=== PATIENT | male | born 1970 | race Caucasian/White ===

== ENCOUNTER 2017-03-05 15:19 | Observation (INO) | payer MEDICARE, OTHER, MEDICAID ==
[2017-03-05] MEDS ORDERED: Acetaminophen/HYDROcodone 325-5 MG Tab PO ONE (15:38)
--- NOTE | 2017-03-05 15:44 | EDM.PDOC ---
ED HPI GENERAL MEDICAL PROBLEM - General Chief Complaint: Lower Extremity Injury/Pain Stated Complaint: LEFT FOOT Time Seen by Provider: 03/05/17 15:25 Source of Information: Reports: Family, Old Records, RN History Limitations: Reports: Other (Down's syndrome) - History of Present Illness INITIAL COMMENTS - FREE TEXT/NARRATIVE: 46 yo male with Down's who is mostly non-verbal may have injured himself jumping down from their pickup/SUV this past weekend. Initiallly he did OK after that, but later wouldn't bear wgt. Now has a little swelling and increased warmth of the L ankle. Parents who care for him gave acetaminophen 500 mg without relief. Has not been to the clinic for this. Has a pHx of falls. Does have a remote hx of gout and his allopurinol was discontinued some time ago. Onset Date: 03/03/17 Duration: Day(s):, Getting Worse Location: Reports: Upper Extremity, Left Severity: Moderate Improves with: Reports: Rest Worsens with: Reports: Movement Context: Reports: Other (Landed wrong coming out of a higher vehicle) Associated Symptoms: Reports: No Other Symptoms Treatments BUCKLE SORTER: Reports: Acetaminophen Left Ankle Pain Score (Numeric/FACES): 4 - Related Data Allergies Allergy/AdvReac Type Severity Reaction Status Date / Time seasonal Allergy Cough Uncoded 03/05/17 15:50 Home Meds: Home Meds Omeprazole Magnesium [Prilosec Otc] 20 mg PO DAILY 02/03/17 [History] Past Medical History HEENT History: Reports: Allergic Rhinitis, Other (See Below) Other HEENT History: seasonal allergies. Cardiovascular History: Reports: Heart Murmur Respiratory History: Reports: None Gastrointestinal History: Reports: Gastritis, GERD Other Gastrointestinal History: GOUT Genitourinary History: Reports: None Musculoskeletal History: Reports: Gout Other Musculoskeletal History: PLANTAR FASCIAL FIBROMATOSIS Neurological History: Reports: Other (See Below) Other Neuro History: DOWN SYNDROME, ADULT FAILURE TO THRIVE SYNDROME, ACUTE ENCEPHALOPATHY Psychiatric History: Reports: Anxiety Other Psychiatric History: DOWN SYNDROME Endocrine/Metabolic History: Reports: Obesity/BMI 30+ Hematologic History: Reports: None Immunologic History: Reports: None Oncologic (Cancer) History: Reports: None Dermatologic History: Reports: Eczema, Other (See Below) Other Dermatologic History: CONTACT DERMATITIS - Past Surgical History Head Surgeries/Procedures: Reports: None Cardiovascular Surgical History: Reports: Other (See Below) Other Cardiovascular Surgeries/Procedures: VSD REPAIR 1973 Respiratory Surgical History: Reports: None GI Surgical History: Reports: Appendectomy Male Surgical History: Reports: None Endocrine Surgical History: Reports: None Musculoskeletal Surgical History: Reports: None Social & Family History - Family History Family Medical History: Noncontributory - Tobacco Use Smoking Status *Q: Never Smoker Second Hand Smoke Exposure: No - Caffeine Use Caffeine Use: Reports: None - Recreational Drug Use Recreational Drug Use: No Review of Systems - Review of Systems Review Of Systems: See Below Constitutional: Reports: No Symptoms Musculoskeletal: Reports: Joint Pain (L ankle), Joint Swelling (L ankle) Skin: Reports: Other (L ankle is warmer than usual) Neurological: Reports: No Symptoms ED EXAM, GENERAL - Physical Exam Exam: See Below Exam Limited By: No Limitations General Appearance: Alert, WD/WN, No Apparent Distress, Obese Eye Exam: Bilateral Eye: Normal Inspection Ears: Normal External Exam, Normal Canal, Hearing Grossly Normal Ear Exam: Bilateral Ear: Auricle Normal, Canal Normal Nose: Normal Inspection, Normal Mucosa, No Blood Throat/Mouth: Normal Inspection, Normal Lips, No Airway Compromise Head: Atraumatic, Normocephalic Neck: Normal Inspection Respiratory/Chest: No Respiratory Distress, Lungs Clear, Normal Breath Sounds, No Accessory Muscle Use Cardiovascular: Regular Rate, Rhythm Extremities: Limited Range of Motion (L ankle with increased warmth and some local swelling. ) Neurological: Alert, No Motor/Sensory Deficits Psychiatric: Normal Affect, Normal Mood Skin Exam: Warm, Dry, Intact, Normal Color, No Rash, Increased Warmth (L ankle) Lymphatic: No Adenopathy Course - Vital Signs Text/Narrative:: Ankle synovial fluid sent for crystal analysis. Last Recorded V/S: Last Vital Signs Temp 36.4 C 03/05/17 15:51 Pulse 67 03/05/17 15:51 Resp 14 03/05/17 15:51 BP 102/58 L 03/05/17 15:51 Pulse Ox 100 03/05/17 15:51 - Orders/Labs/Meds Orders: Active Orders 24 hr Category Date Time Status Ankle Min 3V Lt [CR] Stat Exams 03/05/17 15:38 Ordered CRYSTALS,FLUID [REF] Stat Lab 03/05/17 16:41 Ordered UA W/MICROSCOPIC [URIN] Stat Lab 03/05/17 16:27 Uncollected Labs: Laboratory Tests 03/05/17 03/05/17 03/05/17 Range/Units 16:10 16:10 16:10 WBC 10.4 (4.5-12.0) X10-3/uL RBC 5.59 (4.30-5.75) x10(6)uL Hgb 16.8 H (11.5-15.5) g/dL Hct 50.0 (30.0-51.3) % MCV 89.4 (80-96) fL MCH 30.0 (27.7-33.6) pg MCHC 33.5 (32.2-35.4) g/dL RDW 13.3 (11.5-15.5) % Plt Count 311 (125-369) X10(3)uL Sodium 139 (135-145) mmol/L Potassium 4.1 (3.5-5.3) mmol/L Chloride 101 (100-110) mmol/L Carbon Dioxide 30 H (23-29) mmol/L BUN 14 (5-20) mg/dL Creatinine 1.1 (0.6-1.3) mg/dL Est Cr Clr Drug Dosing 64.80 mL/min Estimated GFR (MDRD) > 60 (>60) BUN/Creatinine Ratio 12.7 (9-20) Glucose 104 (80-116) mg/dL Uric Acid 6.1 (3.0-7.0) mg/dL Calcium 8.7 (8.6-10.2) mg/dL C-Reactive Protein 2.7 H* (0.0-1.0) mg/dL Meds: Medications Discontinued Medications Generic Name Dose Route Start Last Admin Trade Name Freq PRN Reason Stop Dose Admin Hydrocodone Bitart/Acetaminophen 1 tab 03/05/17 15:38 03/05/17 15:48 [place] 325-5 Mg PO 03/05/17 15:39 1 tab ONETIME ONE Administration Ketorolac Tromethamine 30 mg 03/05/17 16:01 03/05/17 16:12 Toradol IM 03/05/17 16:02 30 mg ONETIME ONE Administration - Radiology Interpretation Free Text/Narrative:: No fx of ankle noted on X-ray Departure - Departure Time of Disposition: 17:20 Disposition: Refer to Observation Condition: Fair Clinical Impression: Down's syndrome Ankle pain, left Qualifiers: Chronicity: acute Qualified Code(s): M25.572 - Pain in left ankle and joints of left foot - Discharge Information Referrals: Courtney Camacho NP [Primary Care Provider] - Forms: ED Department Discharge - My Orders Last 24 Hours: My Active Orders 03/05/17 15:38 Ankle Min 3V Lt [CR] Stat 03/05/17 16:27 UA W/MICROSCOPIC [URIN] Stat 03/05/17 16:41 CRYSTALS,FLUID [REF] Stat - Assessment/Plan Last 24 Hours: My Active Orders 03/05/17 15:38 Ankle Min 3V Lt [CR] Stat 03/05/17 16:27 UA W/MICROSCOPIC [URIN] Stat 03/05/17 16:41 CRYSTALS,FLUID [REF] Stat
[2017-03-05] MEDS ORDERED: Ketorolac 30 MG/ML SDV IM ONE (16:01)
[2017-03-05] MEDS ORDERED: Ketorolac 30 MG/ML SDV IVPUSH PRN (17:15)
[2017-03-05] MEDS ORDERED: Acetaminophen/HYDROcodone 325-5 MG Tab PO PRN (17:15)
[2017-03-05] MEDS ORDERED: Polyethylene Glycol 3350 Powder 17 GM Packet PO PRN (17:15)
[2017-03-05] MEDS ORDERED: Sodium Chloride 0.9% 10 ML Syringe FLUSH PRN (17:15)
[2017-03-06] MEDS ORDERED: Ketorolac 15 MG/ML SDV IVPUSH PRN (07:17)
--- NOTE | 2017-03-06 08:47 | CR ---
INDICATION: Ankle pain. Fell one month ago. LEFT ANKLE: Three views of the left ankle revealed the ankle mortise to appear intact without a definite fracture, dislocation, or other significant appearing bone or joint abnormality. If soft tissue abnormality is suspected clinically, MRI may be helpful for further evaluation. MTDD
[2017-03-06] MEDS ORDERED: Non-Formulary Medication 1 Each (Omeprazole Magnesium [Prilosec Otc] 20 MG) PO SCH (09:00)
--- NOTE | 2017-03-06 09:22 | PCM.HP ---
H&P History of Present Illness - General Date of Service: 03/06/17 Admit Problem/Dx: Admission Diagnosis/Problem Admission Diagnosis/Problem Ankle pain Source of Information: Family, Old Records, RN History Limitations: Reports: Other (Developemental delay) - History of Present Illness Initial Comments - Free Text/Narative: 46-year-old male admitted last night because of inability to ambulate. He has Down syndrome and lives with parents, and family, and has had frequent falls recently. Last week he jumped and landed on the left ankle. He presents to the ER with swelling and pain inability to ambulate. He has also history of gout. This morning he complains of no pain and has been able to ambulate some. Left Ankle Pain Score (Numeric/FACES): 4 - Related Data Allergies/Adverse Reactions: Allergies Allergy/AdvReac Type Severity Reaction Status Date / Time seasonal Allergy Cough Uncoded 03/05/17 15:50 Home Medications: Home Meds Omeprazole Magnesium [Prilosec Otc] 20 mg PO DAILY 02/03/17 [History] Past Medical History HEENT History: Reports: Allergic Rhinitis, Impaired Vision, Other (See Below) Other HEENT History: seasonal allergies. Cardiovascular History: Reports: Heart Murmur Respiratory History: Reports: None Gastrointestinal History: Reports: Gastritis, GERD Other Gastrointestinal History: GOUT Genitourinary History: Reports: Urinary Incontinence Musculoskeletal History: Reports: Gout Other Musculoskeletal History: PLANTAR FASCIAL FIBROMATOSIS Neurological History: Reports: Other (See Below) Other Neuro History: DOWN SYNDROME, ADULT FAILURE TO THRIVE SYNDROME, ACUTE ENCEPHALOPATHY. Parents state he has mental capacity of 2year/4month old child Psychiatric History: Reports: Anxiety Other Psychiatric History: DOWN SYNDROME Endocrine/Metabolic History: Reports: Obesity/BMI 30+ Hematologic History: Reports: None Immunologic History: Reports: None Oncologic (Cancer) History: Reports: None Dermatologic History: Reports: Eczema, Other (See Below) Other Dermatologic History: CONTACT DERMATITIS - Past Surgical History Cardiovascular Surgical History: Reports: Other (See Below) Other Cardiovascular Surgeries/Procedures: VSD REPAIR 1972 Respiratory Surgical History: Reports: None GI Surgical History: Reports: Appendectomy, Other (See Below) Other GI Surgeries/Procedures: gastroscopy 2015 Endocrine Surgical History: Reports: None Musculoskeletal Surgical History: Reports: None Social & Family History - Family History Family Medical History: Noncontributory - Tobacco Use Smoking Status *Q: Never Smoker Second Hand Smoke Exposure: No - Caffeine Use Caffeine Use: Reports: Soda - Recreational Drug Use Recreational Drug Use: No H&P Review of Systems - Review of Systems: Review Of Systems: ROS reveals no pertinent complaints other than HPI. Exam - Exam Exam: See Below - Vital Signs Vital Signs: Last Vital Signs Temp 97.4 F 03/06/17 05:20 Pulse 62 03/06/17 05:20 Resp 17 03/06/17 05:20 BP 118/72 03/06/17 01:25 Pulse Ox 98 03/06/17 05:20 Weight: 86.319 kg - Exam General: Alert, Oriented, 4 HEENT: PERRLA, Hearing Intact, Mucosa Moist & [place], Nares Patent, Normal Nasal Septum, Posterior Pharynx Clear, Conjunctiva Clear, EOMI, EACs Clear, TMs Clear Neck: Supple, Trachea Midline, 2 Lungs: Clear to Auscultation, Normal Respiratory Effort Cardiovascular: Regular Rate, Regular Rhythm GI/Abdominal Exam: Normal Bowel Sounds, Soft, Non-Tender, No Organomegaly, No Distention, No Abnormal Bruit, No Mass, Pelvis Stable (Male) Exam: No Hernia, Normal Inspection, Normal Prostate, Circumcised Rectal (Males) Exam: Deferred Back Exam: Normal Inspection, Full Range of Motion, NT Extremities: Joint Swelling (left ankle) Skin: Warm, Dry, Intact Neurological: Cranial Nerves Intact, Strength Equal Bilateral Neuro Extensive - Mental Status: No: Oriented x3 Neuro Extensive - Motor, Sensory, Reflexes: CN II-XII Intact, Normal Gait, Normal Reflexes Psychiatric: Alert, Other (cognitively impaired) - Patient Data Lab Results Last 24 hrs: Laboratory Results - last 24 hr 03/06/17 Range/Units 04:45 Urine Color Yellow (YELLOW) Urine Appearance Clear (CLEAR) Urine pH 5.0 (5.0-6.5) Ur Specific [place] 1.020 (1.010-1.025) Urine Protein Negative (NEGATIVE) mg/dL Urine Glucose (UA) Normal (NEGATIVE) mg/dL Urine Ketones Negative (NEGATIVE) mg/dL Urine Occult Blood Negative (NEGATIVE) Urine Nitrite Negative (NEGATIVE) Urine Bilirubin Negative (NEGATIVE) Urine Urobilinogen Normal (NEGATIVE) mg/dL Ur Leukocyte Esterase Negative (NEGATIVE) Urine RBC 0-5 (0) Urine WBC 0-5 (0) Ur Squamous Epith Cells Occasional (NS,R,O) Urine Bacteria Few H (NS) Result Diagrams: 03/05/17 16:10 03/05/17 16:10 *Q Meaningful Use (ADM) - VTE *Q VTE Criteria *Q: - Stroke *Q Stroke Criteria *Q: - AMI *Q AMI Criteria *Q: - Problem List (1) Ankle pain, left SNOMED Code(s): 107589007, 373739997 ICD Code: M25.572 - PAIN IN LEFT ANKLE AND JOINTS OF LEFT FOOT Status: Acute Current Visit: Yes Qualifiers: Chronicity: acute Qualified Code(s): M25.572 - Pain in left ankle and joints of left foot (2) Down's syndrome SNOMED Code(s): 28661373 ICD Code: Q90.9 - DOWN SYNDROME, UNSPECIFIED Status: Acute Current Visit : Yes (3) Fall (on) (from) other stairs and steps, initial encounter SNOMED Code(s): 640075510 ICD Code: W10.8XXA - FALL (ON) (FROM) OTHER STAIRS AND STEPS, INITIAL ENCOUNTER Status: Acute Current Visit: No (4) Gout SNOMED Code(s): 55489794 ICD Code: M10.9 - GOUT, UNSPECIFIED Status: Acute Current Visit: Yes Problem List Initiated/Reviewed/Updated: Yes Orders Last 24hrs: Active Orders 24 hr Category Date Time Status Patient Status [ADT] Routine ADT 03/05/17 17:14 Active Patient Status [ADT] Routine ADT 03/05/17 17:16 Active Height and Weight [RC] 06 Care 03/05/17 17:15 Active Intake and Output [RC] 06,14,22 Care 03/05/17 17:17 Active Oxygen Therapy [RC] PRN Care 03/05/17 17:14 Active Pulse Oximetry [RC] PRN Care 03/05/17 17:17 Active Vital Signs [RC] 04,08,12,16,20,00 Care 03/05/17 17:16 Active Consult to [place] Torch Operator [CONS] Routine Cons 03/05/17 17:15 Active Regular Diet [DIET] Diet 03/05/17 Dinner Ordered Acetaminophen/HYDROcodone [[place] 325-5 MG] Med 03/05/17 17:15 Active 1 tab PO Q4H PRN Ketorolac [Toradol] Med 03/06/17 07:17 Active 15 mg IVPUSH Q6H PRN Omeprazole Magnesium [Prilosec Otc] Med 03/06/17 09:00 Active 20 mg PO DAILY Polyethylene Glycol 3350 [MiraLAX] Med 03/05/17 17:15 Active 17 gm PO DAILY PRN Sodium Chloride 0.9% [Saline Flush] Med 03/05/17 17:15 Active 10 ml FLUSH ASDIRECTED PRN Antiembolic Hose [OM.PC] Per Unit Routine Oth 03/05/17 17:17 Ordered Saline Lock Insert [OM.PC] Routine Oth 03/05/17 17:15 Ordered Resuscitation Status Routine Resus Stat 03/05/17 17:14 Ordered Medication Orders Hydrocodone Bitart/Acetaminophen ([place] 325-5 Mg) 1 tab PO Q4H PRN PRN Reason: Pain (moderate 4-6) Last Admin: 03/06/17 05:24 Dose: 1 tab Ketorolac Tromethamine (Toradol) 15 mg IVPUSH Q6H PRN PRN Reason: Pain (moderate 4-6) Non-Formulary Medication (Omeprazole Magnesium [Prilosec Otc]) 20 mg PO DAILY THOR Polyethylene Glycol (Miralax) 17 gm PO DAILY PRN PRN Reason: Constipation Sodium Chloride (Saline Flush) 10 ml FLUSH ASDIRECTED PRN PRN Reason: Keep Vein Open Assessment/Plan Comment:: His uric acid is normal, but the ankle still slightly looks red and has mild effusion. However this morning is able to ambulate with assistance. I will discharge him home on home health, and NSAIDs for gout and ankle pain.
[2017-03-06 16:38] VITALS: BP 105/56
== END 2017-03-06 18:25 | disposition home health service (06) ==
LOC: FB.ED 15:19 → FB.MS 17:12
PROVIDERS: ADMIT Emergency Medicine; ATTEND Family Medicine
DX: M25.572 Pain in left ankle and joints of left foot (principal); Q90.9 Down syndrome, unspecified; M10.9 Gout, unspecified; K21.9 Gastro-esophageal reflux disease without esophagitis; F41.9 Anxiety disorder, unspecified; E66.9 Obesity, unspecified; Z68.30 Body mass index [BMI] 30.0-30.9, adult; J30.2 Other seasonal allergic rhinitis; W10.8XXA Fall (on) (from) other stairs and steps, initial encounter; Z90.49 Acquired absence of other specified parts of digestive tract; Z98.890 Other specified postprocedural states; Z79.899 Other long term (current) drug therapy
CPT/HCPCS: 36415; 73610; 80048; 81001; 84550; 85027; 85651; 86140; 89060; 96372; 99284; A9270; J1885; 99219; G0378

== ENCOUNTER 2017-12-15 20:28 | Inpatient (IN) | payer MEDICARE, OTHER, MEDICAID ==
[2017-12-15] MEDS ORDERED: Sodium Chloride 0.9% 1,000 ML IV ONE (20:29)
[2017-12-15] MEDS: Sodium Chloride 0.9% 10 ML Syringe FLUSH PRN (20:58)
[2017-12-15] MEDS: Sodium Chloride 0.9% 1,000 ML IV SCH (22:05)
--- NOTE | 2017-12-16 01:40 | ER ---
DATE SEEN: 12/15/2017 REASON FOR VISIT: Behavioral changes. HISTORY OF PRESENT ILLNESS: This is a 47-year-old male with Down syndrome and early dementia. The family brings him because they are unable to take care of him at home. He has had increased behavior issues, possible hallucinations, refusing food, and needing two people to move him. Over two years ago, he was diagnosed with early-onset dementia and his symptoms seemed to have worsened precipitously. This is despite trying Seroquel. REVIEW OF SYSTEMS: Denies any vomiting or constipation, nausea. No fever has been reported. PAST MEDICAL HISTORY: Down syndrome, gout, early dementia, GERD. ALLERGIES: No known medication allergies. PHYSICAL EXAMINATION: VITAL SIGNS: Blood pressure is normal, pulse is 98, and temperature is normal. ENT: Negative. CHEST: Clear. MENTAL STATUS: Cognitively impaired. NEUROLOGIC: No focal findings. IMPRESSION: 1. Early dementia. 2. Down syndrome. PLAN: The family would like to see him placed in a custodial facility and there has been a process in place, but they are currently unable to take care of him at elderly. As such, we will admit the patient as an inpatient. Consult Physical Therapy, web content & social media manager, and continue fluids and Seroquel and Aricept to control his behavior. /[id number] KANDI/IVY
[2017-12-16] MEDS: Sodium Chloride 0.9% 1,000 ML IV SCH (06:04)
[2017-12-16] MEDS: Sodium Chloride 0.9% 10 ML Syringe FLUSH PRN (12:30)
[2017-12-16] MEDS: Famotidine 20 MG Tab PO SCH (20:13)
[2017-12-16] MEDS: QUEtiapine 25 MG Tab PO SCH (20:13)
--- NOTE | 2017-12-17 06:49 | HP ---
ADMISSION DATE: 12/15/2017 REASON FOR ADMISSION: Diarrhea, progressive decline, care-related issues. Sebastien Elizalde is a 47-year-old single male from [place], [place], was seen at [facility], Dr. Velez on the evening of 12/15. There has been a progressive decline in ability to maintain independence with aging parents. Declining speech, behavioral issues, refusing foods, and increasingly in dependence requiring constant medical and physical supervision. There has been some concerns about dementia in spite of medical intervention. HOME MEDICATIONS: 1. Allopurinol 100 mg 1 daily, hyperuricemia. 2. Seroquel 25 mg 1 p.o. at bedtime, mood stabilizer. 3. Ranitidine 150 one p.o. b.i.d., gastritis. ALLERGIES: Seasonal only. No medication or drug allergies. PAST MEDICAL HISTORY: Significant for previous cardiac surgery. No other operative procedures, hospitalizations, unusual childhood diseases, major injuries, or fractures. SOCIAL HISTORY: Resides with his increasingly elderly parents. Nonsmoker. No alcohol consumption. No illicit drug use. REVIEW OF SYSTEMS: The patient is seen alone on the morning of 12/16/2017. Review of systems noted otherwise. PHYSICAL EXAMINATION: VITAL SIGNS: 37.3, 60, 127/66, 16 and 98. GENERAL: Young lad lying in bed. Opens his eyes, follows commands to some degree. HEENT: Funduscopic benign. Bright TMs. Clear nasal discharge. Mouth and oropharynx are clear. Fair dentition. Tongue midline. Difficult oral exam. NECK: Benign. Thyroid small. Short neck. No carotid bruits. CHEST: Clear in all lung abad. HEART: Soft murmur. Occasional ectopy. Sternotomy scar well healed. ABDOMEN: Benign. Moderately rotund. No palpable masses. GENITOURINARY: Atrophic testicles. Hernias absent. RECTAL: Declined. EXTREMITIES: Well perfused. SKIN: Without rash. LABORATORY STUDIES: White count 10,000, hemoglobin 16.5, electrolytes were satisfactory. Calcium 8.4, otherwise unremarkable. Radiographs not indicated. Conflictual living circumstances, increasing care issues, plans for [facility] care. IMPRESSION: Diarrhea, self-limiting. PLAN: IV fluids in place, cooperative care and well being, we will cap his IV, regular diet, intervention and care as appropriate. Pluck Separator involved. Home placement under consideration. /[id number] MARIEL/IVY
[2017-12-17] MEDS: Famotidine 20 MG Tab PO SCH ×2 (08:44→21:16)
[2017-12-17] MEDS: Allopurinol 100 MG Tab PO SCH (08:45)
--- NOTE | 2017-12-17 10:35 | PN ---
DATE SEEN: 12/17/2017 SUBJECTIVE: Sebastien Elizalde is a 47-year-old male, admitted for just decline in general health and well being. A few episodes of diarrhea in the interim. Noncommunicative for the most part. Living situation, declined health of the parents, physical and emotional demands, consideration for other placement opportunities to be pursued. No particular complaints on his behalf during his hospital stay. Laboratory studies from 12/15/2017 reviewed and appropriate. OBJECTIVE: VITAL SIGNS: 37.3, 72, 123/76, 20, and 95%. GENERAL: Noncommunicative, a bit cooperative. NECK: Benign. Thyroid small. CHEST: Clear in all lung abad. HEART: Regular rate. No murmur. ABDOMEN: Benign, soft, rotund. DIAGNOSES: 1. Diarrhea resolving. 2. Living situation, under stress. PLAN: Medications, care and treatment appropriate. We will discontinue IV fluids, intervention. Living situations to be pursued. /[id number] MARIEL/IVY
[2017-12-17] MEDS: QUEtiapine 25 MG Tab PO SCH (21:16)
[2017-12-18] MEDS: Famotidine 20 MG Tab PO SCH ×2 (08:11→20:12)
[2017-12-18] MEDS: Allopurinol 100 MG Tab PO SCH (08:11)
--- NOTE | 2017-12-18 12:16 | PN ---
DATE SEEN: 12/18/2017 SUBJECTIVE: Sebastien Elizalde is a 47-year-old, male, residing up at this time with his parents at [place] and seen today for review. He has declining health. Weakness, fatigability, inability to motor, and appears to be progressive dementia. MEDICATIONS: Medications reviewed and appropriate, none of consequence in terms of well-being. 1. Allopurinol. 2. Pepcid. 3. Seroquel. LABORATORY STUDIES: All have been complementary white count 10,000, hemoglobin 16.5, normal electrolytes, though GFR greater than 60. OBJECTIVE: GENERAL: Awake. Speech was non-intelligible. NECK: Benign. Thyroid small. CHEST: Clear in all lung abad. HEART: Regular rate. No murmur. ABDOMEN: Benign. NEURO: Progressive intellectual and physical decline. PLAN: senior living under consideration, requirements to be followed, complementary care, and well being. /[id number] MARIEL/IVY
[2017-12-18] MEDS: QUEtiapine 25 MG Tab PO SCH (20:12)
[2017-12-19] MEDS: Famotidine 20 MG Tab PO SCH ×2 (08:37→20:45)
[2017-12-19] MEDS: Allopurinol 100 MG Tab PO SCH (08:38)
--- NOTE | 2017-12-19 13:17 | PN ---
DATE SEEN: 12/19/2017 SUBJECTIVE: Sebastien Elizalde is a 47-year-old male, seen today for review. Plan is to discharge to [facility]. Otherwise comfortable. Eating on demand, vital signs have been stable. No complicating issues. OBJECTIVE: GENERAL: Responsive and appropriate. No spontaneous speech. NECK: Benign. Thyroid small. CHEST: Clear in all lung abad. HEART: Regular without ectopy or murmur. ABDOMEN: Benign. ASSESSMENT: Progressive decline, Down syndrome, dementia. PLAN: Comfort measures and intervention. [facility] placement planned. /[id number] MARIEL/IVY
[2017-12-19] MEDS: QUEtiapine 25 MG Tab PO SCH (20:45)
[2017-12-20] MEDS: Allopurinol 100 MG Tab PO SCH (08:05)
[2017-12-20] MEDS: Famotidine 20 MG Tab PO SCH (08:05)
[2017-12-20 08:55] VITALS: BP 91/60
[2017-12-20] MEDS ORDERED: Tuberculin, PPD 5 Units/0.1 ML 1 ML MDV IDERM ONE ×2 (09:00→10:29)
--- NOTE | 2017-12-20 11:25 | DISCH ---
DISCHARGE DATE: 12/20/2017 HOSPITAL COURSE: Sebastien Elizalde is a 47-year-old male, Down syndrome, home care provided, was admitted with just a general decline in well being. Increasing care issues, difficulty with balance, progressive intellectual decline, necessitating supervision and medical care above his parents. Medications upon admission include allopurinol, Seroquel, and ranitidine. During his hospital stay, it was apparent that total care needs were greater. Ambulation, feeding, skills, at risk for fall. Social service was involved, expectations and plan, will proceed with alf transfer. Family was in agreement. SURGICAL PROCEDURES: None. CONSULTATIONS: None. /[id number] MARIEL/IVY
== END 2017-12-20 10:30 | DRG 884 ==
LOC: FB.ED 20:28 → FB.MS 21:35
PROVIDERS: ADMIT Family Medicine; ATTEND Family Medicine
DX: F03.90 Unspecified dementia, unspecified severity, without behavioral disturbance, psychotic disturbance, mood disturbance, and anxiety (principal); Q90.9 Down syndrome, unspecified; K21.9 Gastro-esophageal reflux disease without esophagitis; M10.9 Gout, unspecified; R53.81 Other malaise; Z79.899 Other long term (current) drug therapy; Z98.890 Other specified postprocedural states
CPT/HCPCS: 36415; 80053; 85025; 96360; 99283; 99284; J7030; J7050; 86580; A9270-GY

== ENCOUNTER 2019-01-29 19:42 | Emergency (ER) | payer MEDICARE, OTHER, MEDICAID ==
--- NOTE | 2019-01-29 21:40 | EDM.PDOC ---
ED HPI GENERAL MEDICAL PROBLEM - General Chief Complaint: Head Injury Stated Complaint: FELL AND HIT HIS HEAD Time Seen by Provider: 01/29/19 22:00 Source of Information: Reports: Family, Old Records History Limitations: Reports: Physical Impairment - History of Present Illness INITIAL COMMENTS - FREE TEXT/NARRATIVE: Sebastien is a very pleasant 48-year-old male with a history of Down syndrome and Alzheimer's dementia, also history of previous CVA and is nonverbal at baseline living in [facility]. He was out with his parents today at a family outing and they had a very good day, however as he went to come home he somehow managed to tip his wheelchair back and it landed him on his back, impacting his head on the floor of the car. He does not complain of any pain, but they wanted to get him checked out. He has had a normal appetite today, has not had any vomiting since the incident. They have not noted any significant change in behaviors. - Related Data Allergies Allergy/AdvReac Type Severity Reaction Status Date / Time seasonal Allergy Cough Uncoded 01/30/19 02:27 Home Meds: Home Meds Allopurinol [Zyloprim] 100 mg PO DAILY 12/15/17 [History] .Dulcolax Suppository 1 supp RECTAL Q72H PRN 01/30/19 [History] .Guaifenesin Syrup 10 ml PO Q4H PRN 01/30/19 [History] Acetaminophen [Tylenol] 650 mg PO Q4H PRN 01/30/19 [History] Divalproex Sodium [Depakote Sprinkle] 250 mg PO DAILY 01/30/19 [History] Docusate Sodium [Colace] 100 mg PO BID 01/30/19 [History] Donepezil HCl [Aricept] 10 mg PO DAILY 01/30/19 [History] Eucalyptus/Menthol [Cough Drops] 1 each MM ASDIRECTED 01/30/19 [History] Lanolin/Mineral Oil [Eucerin Original Lotion] 1 applic TP BID 01/30/19 [History] Loperamide HCl [Diamode] 2 mg PO ASDIRECTED 01/30/19 [History] Loratadine [Claritin] 10 mg PO DAILY 01/30/19 [History] Magnesium Hydroxide [Milk of Magnesia] 30 ml PO DAILY PRN 01/30/19 [History] Mineral Oil/Pet Hy-Phl Oint [Aquaphor Healing Ointment] 1 applic TOP Q8H [History] Omeprazole Magnesium 20 mg PO DAILY 01/30/19 [History] Past Medical History HEENT History: Reports: Allergic Rhinitis, Impaired Vision, Other (See Below) Other HEENT History: seasonal allergies. Cardiovascular History: Reports: Heart Murmur Respiratory History: Reports: None Gastrointestinal History: Reports: Gastritis, GERD Other Gastrointestinal History: GOUT Genitourinary History: Reports: Urinary Incontinence Musculoskeletal History: Reports: Gout Other Musculoskeletal History: PLANTAR FASCIAL FIBROMATOSIS Neurological History: Reports: Other (See Below) Other Neuro History: DOWN SYNDROME, ADULT FAILURE TO THRIVE SYNDROME, ACUTE ENCEPHALOPATHY. Parents state he has mental capacity of 2year/4month old child Psychiatric History: Reports: Anxiety Other Psychiatric History: DOWN SYNDROME Endocrine/Metabolic History: Reports: Obesity/BMI 30+ Hematologic History: Reports: None Immunologic History: Reports: None Oncologic (Cancer) History: Reports: None Dermatologic History: Reports: Eczema, Other (See Below) Other Dermatologic History: CONTACT DERMATITIS - Past Surgical History Head Surgeries/Procedures: Reports: None Cardiovascular Surgical History: Reports: Other (See Below) Other Cardiovascular Surgeries/Procedures: VSD REPAIR 1972 Respiratory Surgical History: Reports: None GI Surgical History: Reports: Appendectomy, Other (See Below) Other GI Surgeries/Procedures: gastroscopy 2014 Male Surgical History: Reports: Circumcision Endocrine Surgical History: Reports: None Musculoskeletal Surgical History: Reports: None, Other (See Below) Other Musculoskeletal Surgeries/Procedures:: much difficult in moving about - legs just not supportive Social & Family History - Family History Family Medical History: Noncontributory - Tobacco Use Smoking Status *Q: Never Smoker - Caffeine Use Caffeine Use: Reports: None - Alcohol Use Alcohol Use History: No - Recreational Drug Use Recreational Drug Use: No - Living Situation & Occupation Social History Comment: lives at [facility] ED ROS GENERAL - Review of Systems Review Of Systems: Unable To Obtain ED EXAM, HEAD INJURY - Physical Exam Exam: See Below Text/Narrative:: Gen.: Alert, no acute distress. Moving head and neck freely without any grimaces or indications of pain. 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 He has equal strength in both of his lower extremities. Pupils are equal and reactive, facial muscles appear to be symmetric. There is no evidence of trauma to his mouth. There is no bruising noted on the back of the head and external ears appear normal. Heart is regular rate and rhythm, lungs are clear throughout with no wheezes or crackles. Abdomen positive bowel sounds, soft nondistended nontender with no rebound or guarding. Peripheral pulses +2. No obvious skin lesions or other bumps or bruises Course - Vital Signs Text/Narrative:: fall, given [place]-at[place] instability in down's syndrome will get CT head/neck otherwise no apparent injury. Has not had a change in mentation nor any vomiting Last Recorded V/S: Last Vital Signs Temp 36.8 C 01/29/19 20:15 Pulse 69 01/29/19 21:40 Resp 18 01/29/19 21:40 BP 122/77 01/29/19 21:40 Pulse Ox 95 01/29/19 21:40 - Orders/Labs/Meds Orders: Active Orders 24 hr Category Date Time Status C-Spine [Cervical Spine wo Cont] [CT] Stat Exams 01/29/19 21:10 Taken Head wo Cont [CT] Stat Exams 01/29/19 21:10 Taken - Re-Assessments/Exams Free Text/Narrative Re-Assessment/Exam: 01/29/19 per report, there is no fracture, subluxation or other acute finding noted in the cervical spine. There was also no acute or new findings in the CT head. Patient has been observed in the department for a couple of hours and his behavior is at baseline per his mother, he has not had any vomiting nor shown any other signs of head injury. He may have a slight concussion which would be extremely difficult to identify in this already significantly disabled patient. Discharge back to [facility]. parents are in agreement with this plan and had no further questions Departure - Departure Time of Disposition: 21:37 Disposition: DC/Tfer to [facility] Condition: Good Clinical Impression: Fall from chair - Discharge Information *PRESCRIPTION DRUG MONITORING PROGRAM REVIEWED*: Not Applicable *COPY OF PRESCRIPTION DRUG MONITORING REPORT IN PATIENT JC: Not Applicable Instructions: Head Injury, Adult, [id number] Referrals: Courtney Camacho NP [Primary Care Provider] - Forms: ED Department Discharge Additional Instructions: Negative CT scan of head and neck for any injury. There is no way of determining if he sustained a small concussion or not, but if he has significant behavior change this may be an issue and he may benefit from reevaluation, PCP likely able to do this. Otherwise he has no restrictions or changes in day to day activity. No other injuries were evident upon evaluation in the emergency room. - My Orders Last 24 Hours: My Active Orders 01/29/19 21:10 C-Spine [Cervical Spine wo Cont] [CT] Stat Head wo Cont [CT] Stat - Assessment/Plan Last 24 Hours: My Active Orders 01/29/19 21:10 C-Spine [Cervical Spine wo Cont] [CT] Stat Head wo Cont [CT] Stat
[2019-01-30 02:07] VITALS: BP 122/77; PULSE 69
== END 2019-01-29 22:00 ==
LOC: FB.ED 19:42
DX: Z04.3 Encounter for examination and observation following other accident (principal); K21.9 Gastro-esophageal reflux disease without esophagitis; M10.9 Gout, unspecified; G30.9 Alzheimer's disease, unspecified; F41.9 Anxiety disorder, unspecified; F02.80 Dementia in other diseases classified elsewhere, unspecified severity, without behavioral disturbance, psychotic disturbance, mood disturbance, and anxiety; Q90.9 Down syndrome, unspecified; Z86.73 Personal history of transient ischemic attack (TIA), and cerebral infarction without residual deficits; Z79.899 Other long term (current) drug therapy
CPT/HCPCS: 70450; 72125; 99284-25

== ENCOUNTER 2019-04-24 11:28 | Emergency (ER) | payer MEDICARE, OTHER, MEDICAID ==
[2019-04-24] MEDS: Albuterol/Ipratropium 3.0-0.5 MG/3 ML Neb Soln NEB ONE (12:15)
--- NOTE | 2019-04-24 12:33 | EDM.PDOC ---
ED HPI GENERAL MEDICAL PROBLEM - General Chief Complaint: General Stated Complaint: RESPIRATORY PROBLEMS Time Seen by Provider: 04/24/19 11:35 Source of Information: Reports: Family History Limitations: Reports: No Limitations - History of Present Illness INITIAL COMMENTS - FREE TEXT/NARRATIVE: Patient presented to the ED from the clinic because of 2 week history of coughing which is mostly non-productive. Patient was treated with oral steroids and Bactrim DS on 04/10 but developed allergy to Bactrim. 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 He was also hypotensive per TOOL AND DIE INSPECTOR but in the ED his BP was normal at 135/61. - Related Data Allergies Allergy/AdvReac Type Severity Reaction Status Date / Time sulfamethoxazole Allergy Hives Verified 04/24/19 12:45 [From Bactrim] trimethoprim [From Bactrim] Allergy Hives Verified 04/24/19 12:45 seasonal Allergy Cough Uncoded 01/30/19 02:27 Home Meds: Home Meds Allopurinol [Zyloprim] 100 mg PO DAILY 12/15/17 [History] .Dulcolax Suppository 1 supp RECTAL Q72H PRN 01/30/19 [History] .Guaifenesin Syrup 10 ml PO Q4H PRN 01/30/19 [History] Acetaminophen [Tylenol] 650 mg PO Q4H PRN 01/30/19 [History] Divalproex Sodium [Depakote Sprinkle] 250 mg PO DAILY 01/30/19 [History] Docusate Sodium [Colace] 100 mg PO BID 01/30/19 [History] Donepezil HCl [Aricept] 10 mg PO DAILY 01/30/19 [History] Lanolin/Mineral Oil [Eucerin Original Lotion] 1 applic TP BID 01/30/19 [History] Loperamide HCl [Diamode] 2 mg PO ASDIRECTED 01/30/19 [History] Loratadine [Claritin] 10 mg PO DAILY 01/30/19 [History] Magnesium Hydroxide [Milk of Magnesia] 30 ml PO DAILY PRN 01/30/19 [History] Mineral Oil/Pet Hy-Phl Oint [Aquaphor Healing Ointment] 1 applic TOP Q8H [History] Omeprazole Magnesium 20 mg PO DAILY 01/30/19 [History] Azithromycin [Zithromax] 250 mg PO DAILY #6 tab 04/24/19 [Rx] predniSONE [Prednisone] 20 mg PO DAILY #5 tablet 04/24/19 [Rx] Past Medical History HEENT History: Reports: Allergic Rhinitis, Impaired Vision, Other (See Below) Other HEENT History: seasonal allergies. Cardiovascular History: Reports: Heart Murmur Respiratory History: Reports: None Gastrointestinal History: Reports: Gastritis, GERD Other Gastrointestinal History: GOUT Genitourinary History: Reports: Urinary Incontinence Musculoskeletal History: Reports: Gout Other Musculoskeletal History: PLANTAR FASCIAL FIBROMATOSIS Neurological History: Reports: Other (See Below) Other Neuro History: DOWN SYNDROME, ADULT FAILURE TO THRIVE SYNDROME, ACUTE ENCEPHALOPATHY. Parents state he has mental capacity of 2year/4month old child Psychiatric History: Reports: Anxiety Other Psychiatric History: DOWN SYNDROME Endocrine/Metabolic History: Reports: Obesity/BMI 30+ Hematologic History: Reports: None Immunologic History: Reports: None Oncologic (Cancer) History: Reports: None Dermatologic History: Reports: Eczema, Other (See Below) Other Dermatologic History: CONTACT DERMATITIS - Past Surgical History Head Surgeries/Procedures: Reports: None Cardiovascular Surgical History: Reports: Other (See Below) Other Cardiovascular Surgeries/Procedures: VSD REPAIR 1972 Respiratory Surgical History: Reports: None GI Surgical History: Reports: Appendectomy, Other (See Below) Other GI Surgeries/Procedures: gastroscopy 2015 Male Surgical History: Reports: Circumcision Endocrine Surgical History: Reports: None Musculoskeletal Surgical History: Reports: None, Other (See Below) Other Musculoskeletal Surgeries/Procedures:: much difficult in moving about - legs just not supportive Social & Family History - Family History Family Medical History: Noncontributory - Caffeine Use Caffeine Use: Reports: None ED ROS GENERAL - Review of Systems Review Of Systems: See Below Constitutional: Reports: No Symptoms HEENT: Reports: No Symptoms Respiratory: Reports: Cough. Denies: Sputum Cardiovascular: Reports: No Symptoms Endocrine: Reports: No Symptoms GI/Abdominal: Reports: No Symptoms : Reports: No Symptoms Musculoskeletal: Reports: No Symptoms Skin: Reports: No Symptoms Neurological: Reports: No Symptoms Psychiatric: Reports: No Symptoms ED EXAM, GENERAL - Physical Exam Exam: See Below Exam Limited By: No Limitations General Appearance: Alert, No Apparent Distress Ears: Normal External Exam, Normal TMs Nose: Normal Inspection, Normal Mucosa, No Blood Throat/Mouth: Normal Inspection, Normal Lips, Normal Teeth Head: Atraumatic, Normocephalic Neck: Normal Inspection, Supple, Non-Tender, Full Range of Motion Respiratory/Chest: No Respiratory Distress, Lungs Clear, No Accessory Muscle Use , Chest Non-Tender, Rhonchi, Wheezing. No: Crackles, Stridor Cardiovascular: Normal Peripheral Pulses, Regular Rate, Rhythm, No Edema, No Gallop, No JVD, No Murmur, No Rub GI/Abdominal: Normal Bowel Sounds, Soft, Non-Tender, No Organomegaly (Male) Exam: No Hernia, Normal Inspection, Normal Prostate Back Exam: Normal Inspection, Full Range of Motion Course - Vital Signs Text/Narrative:: labs reviewed and was discussed with patient's family and parents cbc,.cmp-normal influenza-neg CXR-neg duoneb was given and will start him on prednisone 20 mg po qday x 5 days and z- esmer. He might be having dental pain which is comntributing for him not eating well. Last Recorded V/S: Last Vital Signs Temp 37.1 C 04/24/19 11:30 Pulse 85 04/24/19 12:50 Resp 16 04/24/19 12:50 BP 122/57 L 04/24/19 12:50 Pulse Ox 95 04/24/19 12:50 - Orders/Labs/Meds Orders: Active Orders 24 hr Category Date Time Status RT Aerosol Therapy [RC] ASDIRECTED Care 04/24/19 12:02 Active Chest 1V Frontal [CR] Stat Exams 04/24/19 11:52 Taken Meds: Medications Discontinued Medications Generic Name Dose Route Start Last Admin Trade Name Hazel PRN Reason Stop Dose Admin Albuterol/Ipratropium 3 ml 04/24/19 12:02 04/24/19 12:15 Duoneb 3.0-0.5 Mg/3 Ml NEB 04/24/19 12:03 3 ml ONETIME ONE Administration Departure - Departure Time of Disposition: 12:45 Disposition: Home, Self-Care 01 Clinical Impression: Acute bronchitis - Discharge Information Prescriptions: Azithromycin [Zithromax] 250 mg PO DAILY #6 tab predniSONE [Prednisone] 20 mg PO DAILY #5 tablet Instructions: Acute Bronchitis, Adult Referrals: PCP,None [Ordering Only Provider] - Forms: ED Department Discharge Additional Instructions: please read discharge instructions on acute bronchitis increase oral fluids prednisone 20 mg once daily for 5 days z-esmer as directed try giving tylenol 1000m mg every 8 hours as needed for pain, he might have dental pain causing him not to eat follow up with your doctor if symptoms persist or worsens - My Orders Last 24 Hours: My Active Orders 04/24/19 11:52 Chest 1V Frontal [CR] Stat 04/24/19 12:02 RT Aerosol Therapy [RC] ASDIRECTED - Assessment/Plan Last 24 Hours: My Active Orders 04/24/19 11:52 Chest 1V Frontal [CR] Stat 04/24/19 12:02 RT Aerosol Therapy [RC] ASDIRECTED
[2019-04-24 13:36] VITALS: BP 122/57; PULSE 85
--- NOTE | 2019-04-25 09:06 | CR ---
INDICATION: Cough. CHEST: AP upright portable view of the chest, 04/24/19, was compared with 04/17 and 03/09/09. Very poor inspiration is noted. The heart is enlarged. The aorta is tortuous with some calcification in the arch. Median sternotomy is noted. No gross consolidating pneumonia or effusion was seen. With the poor inspiration emphasizing markings at the lung bases, it is difficult to exclude patchy bronchopneumonia, especially at the left lung base. Evidence of exogenous obesity is noted. When clinically possible, full inspiration PA and lateral views of the chest may be helpful for further evaluation. MTDD
== END 2019-04-24 12:50 | disposition home or self-care (01) ==
LOC: FB.ED 11:28
DX: J20.9 Acute bronchitis, unspecified (principal); K21.9 Gastro-esophageal reflux disease without esophagitis; E66.9 Obesity, unspecified; Z88.1 Allergy status to other antibiotic agents; Z88.2 Allergy status to sulfonamides; Z91.09 Other allergy status, other than to drugs and biological substances
CPT/HCPCS: 71045; 94640; 99283-25; J7620-GY

== ENCOUNTER → 2019-04-24 | Outpatient (CLI) | payer MEDICARE, OTHER, MEDICAID | LOC: FB.CLBR 10:51 | PROVIDERS: ATTEND Nurse Practitioner Family | DX: J20.9 Acute bronchitis, unspecified (principal) | CPT/HCPCS: 36415; 80048; 85025; 87804; 87804-59 ==

== ENCOUNTER 2020-02-16 18:52 | Emergency (ER) | payer MEDICARE, MEDICAID ==
--- NOTE | 2020-02-16 20:27 | EDM.PDOC ---
ED HPI GENERAL MEDICAL PROBLEM - General Chief Complaint: Respiratory Problem Stated Complaint: POSSIBLE ASPIRATION Time Seen by Provider: 02/16/20 19:10 Source of Information: Reports: Patient History Limitations: Reports: No Limitations - History of Present Illness INITIAL COMMENTS - FREE TEXT/NARRATIVE: Patient presented to the ED from the [facility] because of a possible aspiration. After eating dinner he start to cough and couldn't swallow his oral secretions. there is no fever or chills. - Related Data Allergies Allergy/AdvReac Type Severity Reaction Status Date / Time sulfamethoxazole Allergy Hives Verified 02/16/20 19:06 [From Bactrim] trimethoprim [From Bactrim] Allergy Hives Verified 02/16/20 19:06 seasonal Allergy Cough Uncoded 02/16/20 19:06 Home Meds: Home Meds allopurinoL [Zyloprim] 100 mg PO DAILY 12/15/17 [History] .Dulcolax Suppository 1 supp RECTAL Q72H PRN 01/30/19 [History] .Guaifenesin Syrup 10 ml PO Q4H PRN 01/30/19 [History] Acetaminophen [Tylenol] 650 mg PO Q4H PRN 01/30/19 [History] Divalproex Sodium [Depakote Sprinkle] 250 mg PO DAILY 01/30/19 [History] Donepezil HCl [Aricept] 10 mg PO DAILY 01/30/19 [History] Lanolin/Mineral Oil [Eucerin Original Lotion] 1 applic TP BID 01/30/19 [History] Loperamide HCl [Diamode] 2 mg PO ASDIRECTED 01/30/19 [History] Loratadine [Claritin] 10 mg PO DAILY 01/30/19 [History] Magnesium Hydroxide [Milk of Magnesia] 30 ml PO DAILY PRN 01/30/19 [History] Mineral Oil/Pet Hy-Phl Oint [Aquaphor Healing Ointment] 1 applic TOP Q8H 01/30/19 [History] Omeprazole Magnesium 20 mg PO DAILY 01/30/19 [History] Acetaminophen [Acetaminophen Extra Strength] 1,000 mg PO BID 02/16/20 [History] Albuterol [Proventil Neb Soln] 1 unit INH Q6H PRN 02/16/20 [History] Sennosides/Docusate Sodium [Senna-S] 1 tab PO BID 02/16/20 [History] Past Medical History HEENT History: Reports: Allergic Rhinitis, Impaired Vision, Other (See Below) Other HEENT History: seasonal allergies. Cardiovascular History: Reports: Heart Murmur Respiratory History: Reports: None Gastrointestinal History: Reports: Gastritis, GERD Other Gastrointestinal History: GOUT Genitourinary History: Reports: Urinary Incontinence Musculoskeletal History: Reports: Gout Other Musculoskeletal History: PLANTAR FASCIAL FIBROMATOSIS Neurological History: Reports: Other (See Below) Other Neuro History: DOWN SYNDROME, ADULT FAILURE TO THRIVE SYNDROME, ACUTE ENCEPHALOPATHY. Parents state he has mental capacity of 2year/4month old child Psychiatric History: Reports: Anxiety Other Psychiatric History: DOWN SYNDROME Endocrine/Metabolic History: Reports: Obesity/BMI 30+ Hematologic History: Reports: None Immunologic History: Reports: None Oncologic (Cancer) History: Reports: None Dermatologic History: Reports: Eczema, Other (See Below) Other Dermatologic History: CONTACT DERMATITIS - Past Surgical History Head Surgeries/Procedures: Reports: None Cardiovascular Surgical History: Reports: Other (See Below) Other Cardiovascular Surgeries/Procedures: VSD REPAIR 1972 Respiratory Surgical History: Reports: None GI Surgical History: Reports: Appendectomy, Other (See Below) Other GI Surgeries/Procedures: gastroscopy 2014 Male Surgical History: Reports: Circumcision Endocrine Surgical History: Reports: None Musculoskeletal Surgical History: Reports: None, Other (See Below) Other Musculoskeletal Surgeries/Procedures:: much difficult in moving about - legs just not supportive Social & Family History - Family History Family Medical History: Noncontributory - Tobacco Use Smoking Status *Q: Unknown Ever Smoked Second Hand Smoke Exposure: No - Caffeine Use Caffeine Use: Reports: None - Recreational Drug Use Recreational Drug Use: No ED ROS GENERAL - Review of Systems Review Of Systems: See Below Constitutional: Reports: No Symptoms HEENT: Reports: No Symptoms Respiratory: Reports: Cough, Sputum Cardiovascular: Reports: No Symptoms Endocrine: Reports: No Symptoms GI/Abdominal: Reports: No Symptoms : Reports: No Symptoms Musculoskeletal: Reports: No Symptoms Skin: Reports: No Symptoms Neurological: Reports: No Symptoms ED EXAM, GENERAL - Physical Exam Exam: See Below Exam Limited By: No Limitations General Appearance: Alert, No Apparent Distress Eye Exam: Bilateral Eye: PERRL Ears: Normal External Exam, Normal Canal Nose: Normal Inspection, Normal Mucosa, No Blood Throat/Mouth: Normal Inspection, Normal Lips, Normal Teeth, Normal Gums Head: Atraumatic, Normocephalic Neck: Normal Inspection, Supple, Non-Tender, Full Range of Motion Respiratory/Chest: No Respiratory Distress, Rhonchi, Stridor Cardiovascular: Normal Peripheral Pulses, Regular Rate, Rhythm, No Edema, No Gallop GI/Abdominal: Normal Bowel Sounds, Soft, Non-Tender Back Exam: Normal Inspection, Full Range of Motion Course - Vital Signs Text/Narrative:: Labs/CXR was reviewed and discussed with his mom Oral suction He expelled a chunk of hotdog and since then he stopped coughing and is able to swallow his oral secretions. Last Recorded V/S: Last Vital Signs Temp 36.3 C 02/16/20 19:02 Pulse 73 02/16/20 20:00 Resp 19 02/16/20 20:00 BP 101/80 02/16/20 20:00 Pulse Ox 95 02/16/20 20:00 - Orders/Labs/Meds Orders: Active Orders 24 hr Category Date Time Status Chest 1V Frontal [CR] Stat Exams 02/16/20 19:14 Taken Labs: Laboratory Tests 02/16/20 02/16/20 02/16/20 Range/Units 19:40 19:40 19:40 WBC 8.7 (4.5-12.0) X10-3/uL RBC 5.17 (4.30-5.75) x10(6)uL Hgb 16.2 (13.5-17.8) g/dL Hct 49.0 (30.0-51.3) % MCV 94.7 (80-96) fL MCH 31.4 (27.7-33.6) pg MCHC 33.1 (32.2-35.4) g/dL RDW 13.0 (11.5-15.5) % Plt Count 355 (125-369) X10(3)uL MPV 8.6 (7.4-10.4) fL Neut % (Auto) 67.6 (46-82) % Lymph % (Auto) 21.1 (13-37) % [place] % (Auto) 6.8 (4-12) % Eos % (Auto) 4 (1.0-5.0) % Baso % (Auto) 1 (0-2) % Neut # (Auto) 5.9 (1.6-8.3) # Lymph # (Auto) 1.8 (0.6-5.0) # [place] # (Auto) 0.6 (0.0-1.3) # Eos # (Auto) 0.3 (0.0-0.8) # Baso # (Auto) 0.1 (0.0-0.2) # Sodium 141 (135-145) mmol/L Potassium 3.9 (3.5-5.3) mmol/L Chloride 104 (100-110) mmol/L Carbon Dioxide 27 (21-32) mmol/L BUN 18 (7-18) mg/dL Creatinine 0.9 (0.70-1.30) mg/dL Est Cr Clr Drug Dosing 76.68 mL/min Estimated GFR (MDRD) > 60 (>60) BUN/Creatinine Ratio 20.0 (9-20) Glucose 105 (80-116) mg/dL Lactic Acid 2.0 (0.4-2.0) mmol/L Calcium 9.4 (8.6-10.2) mg/dL Total Bilirubin 0.3 (0.1-1.3) mg/dL AST 15 D (5-25) IU/L ALT 15 D (12-36) U/L Alkaline Phosphatase 138 H (56-112) IU/L Total Protein 8.0 (6.0-8.0) g/dL Albumin 3.2 L (3.5-5.2) g/dL Globulin 4.8 g/dL Albumin/Globulin Ratio 0.7 Departure - Departure Time of Disposition: 08:30 Disposition: DC/Tfer to [facility] 03 Condition: Good Clinical Impression: Esophageal obstruction due to food impaction - Discharge Information Instructions: Swallowed Foreign Body, Adult, [id number], Food Choices for Gastroesophageal Reflux Disease, Adult Referrals: PCP,None [Primary Care Provider] - Forms: ED Department Discharge Additional Instructions: please read discharge instructions on esophageal obstruction(hotdog) if he develops fever temp of 100.4 and above return to the ED swallow evaluation recommended Sepsis Event Note (ED) - Evaluation Sepsis Screening Result: No Definite Risk - Focused Exam Vital Signs: Vital Signs Temp Pulse Resp BP Pulse Ox 02/16/20 20:00 73 19 101/80 95 02/16/20 19:02 36.3 C 64 16 123/101 H 100 - My Orders Last 24 Hours: My Active Orders 02/16/20 19:14 Chest 1V Frontal [CR] Stat - Assessment/Plan Last 24 Hours: My Active Orders 02/16/20 19:14 Chest 1V Frontal [CR] Stat
[2020-02-16 20:42] VITALS: BP 101/80; PULSE 73
--- NOTE | 2020-02-17 09:52 | CR ---
INDICATION: Cough. CHEST, ONE VIEW: An upright AP portable view of the chest was obtained 02/16/20 and compared with 11/17/19 and 05/20/19. The heart did not appear enlarged. Somewhat heavy markings are noted in the lower lung abad bilaterally, likely fibrotic in nature, but making it difficult to exclude minimal patchy bronchopneumonia. There is also some pleural thickening laterally at the lower lung abad which was present on previous studies including 2019. No consolidating pneumonia or effusion was seen. Dextroconvex scoliosis of the mid thoracic spine is suggested. Wire sutures are noted at the sternum compatible with previous median sternotomy. IMPRESSION: No definite acute process, but difficult to exclude minimal patchy bronchopneumonia superimposed on pulmonary fibrosis. A degree of pleural fibrosis is also suggested. MTDD
== END 2020-02-16 20:52 ==
LOC: FB.ED 18:52
DX: T18.128A Food in esophagus causing other injury, initial encounter (principal); K21.9 Gastro-esophageal reflux disease without esophagitis; M10.9 Gout, unspecified; E66.9 Obesity, unspecified; Z88.2 Allergy status to sulfonamides; Z88.1 Allergy status to other antibiotic agents; Z79.899 Other long term (current) drug therapy; Z68.29 Body mass index [BMI] 29.0-29.9, adult
CPT/HCPCS: 36415; 71045; 80053; 83605; 85025; 99282; 99284-25

== ENCOUNTER 2020-02-17 13:08 | Inpatient (IN) | payer MEDICARE, MEDICAID ==
[2020-02-17] MEDS ORDERED: Ondansetron 4 MG/2 ML SDV IVPUSH ONE (13:30)
[2020-02-17] MEDS ORDERED: Sodium Chloride 0.9% 1,000 ML IV SCH (13:30)
[2020-02-17] MEDS ORDERED: Piperacillin/Tazobactam 4.5 GM in Sodium Chloride 0.9% 100 ML IV SCH (14:45)
[2020-02-17] MEDS: Sodium Chloride 0.9% 10 ML Syringe FLUSH PRN (15:16)
--- NOTE | 2020-02-17 15:23 | CR ---
INDICATION: Chest congestion. CHEST TWO VIEWS: AP and lateral views of the chest 02/17/20 were compared with 02/16/20 and 11/17/19. The heart appears enlarged. The aorta is somewhat tortuous. Evidence of previous median sternotomy is noted. Pulmonary vasculature is somewhat prominent with interstitial changes raising question of CHF and interstitial lung edema. There also appear to be some minimal alveolar infiltrates in the lung bases and right mid lung field raising question of a mild degree of pulmonary edema and/or fibrosis and/or superimposed areas of pneumonia. Bony structures appear to be grossly intact, but not well seen. IMPRESSION: 1. ASHD cardiomegaly likely with mild CHF and possibly interstitial lung edema. Difficult to exclude areas of minimal patchy bronchopneumonia. 2. Exogenous obesity. MTDD
--- NOTE | 2020-02-17 16:01 | EDM.PDOC ---
ED HPI GENERAL MEDICAL PROBLEM - General Chief Complaint: Respiratory Problem Stated Complaint: CONGESTION, POSSIBLE ASPIRATION Time Seen by Provider: 02/17/20 13:40 Source of Information: Reports: Patient History Limitations: Reports: No Limitations - History of Present Illness INITIAL COMMENTS - FREE TEXT/NARRATIVE: Patient presented to the ED from [facility] because of persistent cough and lethargy. He was seen in the ED yesterday because of esophageal obstruction with a hotdog and after expelling it he was breathing better. We also did orotracheal suction with significant amount of oral secretions. Labs and CXR done yesterday were all normal so Sebastien was discharged back to [facility]. - Related Data Allergies Allergy/AdvReac Type Severity Reaction Status Date / Time sulfamethoxazole Allergy Hives Verified 02/17/20 16:29 [From Bactrim] trimethoprim [From Bactrim] Allergy Hives Verified 02/17/20 16:29 seasonal Allergy Cough Uncoded 02/17/20 16:29 Home Meds: Home Meds allopurinoL [Zyloprim] 100 mg PO DAILY 12/15/17 [History] .Dulcolax Suppository 1 supp RECTAL Q72H PRN 01/30/19 [History] .Guaifenesin Syrup 10 ml PO Q4H PRN 01/30/19 [History] Acetaminophen [Tylenol] 650 mg PO Q4H PRN 01/30/19 [History] Donepezil HCl [Aricept] 10 mg PO DAILY 01/30/19 [History] Lanolin/Mineral Oil [Eucerin Original Lotion] 1 applic TP BID 01/30/19 [History] Loperamide HCl [Diamode] 2 mg PO ASDIRECTED 01/30/19 [History] Loratadine [Claritin] 10 mg PO DAILY 01/30/19 [History] Magnesium Hydroxide [Milk of Magnesia] 30 ml PO DAILY PRN 01/30/19 [History] Mineral Oil/Pet Hy-Phl Oint [Aquaphor Healing Ointment] 1 applic TOP Q8H 01/30/19 [History] Omeprazole Magnesium 20 mg PO DAILY 01/30/19 [History] Acetaminophen [Acetaminophen Extra Strength] 1,000 mg PO BID 02/16/20 [History] Albuterol [Proventil Neb Soln] 1 unit INH Q6H PRN 02/16/20 [History] Sennosides/Docusate Sodium [Senna-S] 1 tab PO BID 02/16/20 [History] Divalproex Sodium [Depakote Sprinkle] 250 mg PO DAILY@1200 02/17/20 [History] Past Medical History HEENT History: Reports: Allergic Rhinitis, Impaired Vision, Other (See Below) Other HEENT History: seasonal allergies. Cardiovascular History: Reports: Heart Murmur Respiratory History: Reports: None Gastrointestinal History: Reports: Gastritis, GERD Other Gastrointestinal History: GOUT Genitourinary History: Reports: Urinary Incontinence Musculoskeletal History: Reports: Gout Other Musculoskeletal History: PLANTAR FASCIAL FIBROMATOSIS Neurological History: Reports: Other (See Below) Other Neuro History: DOWN SYNDROME, ADULT FAILURE TO THRIVE SYNDROME, ACUTE ENCEPHALOPATHY. Parents state he has mental capacity of 2year/4month old child Psychiatric History: Reports: Anxiety Other Psychiatric History: DOWN SYNDROME Endocrine/Metabolic History: Reports: Obesity/BMI 30+ Hematologic History: Reports: None Immunologic History: Reports: None Oncologic (Cancer) History: Reports: None Dermatologic History: Reports: Eczema, Other (See Below) Other Dermatologic History: CONTACT DERMATITIS - Infectious Disease History Infectious Disease History: Reports: Chicken Pox - Past Surgical History Head Surgeries/Procedures: Reports: None Cardiovascular Surgical History: Reports: Other (See Below) Other Cardiovascular Surgeries/Procedures: VSD REPAIR 1972 Respiratory Surgical History: Reports: None GI Surgical History: Reports: Appendectomy, Other (See Below) Other GI Surgeries/Procedures: gastroscopy 2014 Male Surgical History: Reports: Circumcision Endocrine Surgical History: Reports: None Musculoskeletal Surgical History: Reports: None, Other (See Below) Other Musculoskeletal Surgeries/Procedures:: much difficult in moving about - legs just not supportive Social & Family History - Family History Family Medical History: Noncontributory - Tobacco Use Smoking Status *Q: Never Smoker Second Hand Smoke Exposure: No - Caffeine Use Caffeine Use: Reports: None - Recreational Drug Use Recreational Drug Use: No ED ROS GENERAL - Review of Systems Review Of Systems: See Below Constitutional: Reports: Fever, Chills HEENT: Reports: No Symptoms Respiratory: Reports: Cough, Sputum Cardiovascular: Reports: No Symptoms Endocrine: Reports: No Symptoms GI/Abdominal: Reports: No Symptoms : Reports: No Symptoms Musculoskeletal: Reports: No Symptoms Skin: Reports: No Symptoms Neurological: Reports: Other Psychiatric: Reports: No Symptoms Hematologic/Lymphatic: Reports: No Symptoms Immunologic: Reports: No Symptoms ED EXAM, GENERAL - Physical Exam Exam: See Below Exam Limited By: No Limitations General Appearance: Alert, No Apparent Distress Eye Exam: Bilateral Eye: PERRL Ears: Normal External Exam, Normal Canal, Hearing Grossly Normal Nose: Normal Inspection, Normal Mucosa Throat/Mouth: Normal Inspection, Normal Lips Head: Atraumatic, Normocephalic Neck: Normal Inspection, Supple, Non-Tender Respiratory/Chest: No Respiratory Distress, Lungs Clear, Decreased Breath Sounds, Crackles, Rhonchi Cardiovascular: Normal Peripheral Pulses, Regular Rate, Rhythm, No Edema, No Gallop GI/Abdominal: Normal Bowel Sounds, Soft, Non-Tender, No Organomegaly Back Exam: Normal Inspection, Full Range of Motion Extremities: Normal Inspection, Normal Range of Motion, Non-Tender Neurological: Alert, Oriented, CN II-XII Intact, Normal Cognition, Normal Gait Psychiatric: Normal Affect, Normal Mood Skin Exam: Warm, Dry Course - Vital Signs Text/Narrative:: Labs/CXR was discussed with mom and verbalized understanding CXR-see result NS 1 L bolus Zosyn 4.5 gm IV x1 Last Recorded V/S: Last Vital Signs Temp 36.6 C 02/18/20 06:00 Pulse 63 02/18/20 06:00 Resp 21 H 02/18/20 06:00 BP 99/71 02/18/20 06:00 Pulse Ox 95 02/18/20 06:00 - Orders/Labs/Meds Orders: Active Orders 24 hr Category Date Time Status CULTURE BLOOD [BC] Urgent Lab 02/17/20 14:43 Received CULTURE BLOOD [BC] Urgent Lab 02/17/20 14:56 Received Sodium Chloride 0.9% [Normal Saline] 1,000 ml Med 02/17/20 13:30 Active IV ASDIRECTED Sodium Chloride 0.9% [Saline Flush] Med 02/17/20 13:30 Active 10 ml FLUSH ASDIRECTED PRN Blood Culture x2 Reflex Set [OM.PC] Urgent Oth 02/17/20 14:19 Ordered Saline Lock Insert [OM.PC] Routine Oth 02/17/20 13:30 Ordered Medication Orders Acetaminophen (Tylenol) 650 mg PO Q4H PRN PRN Reason: fever, pain Albuterol (Proventil Neb Soln) 2.5 mg INH Q6H PRN PRN Reason: Dyspnea Donepezil HCl (Aricept) 10 mg PO DAILY [facility] Enoxaparin Sodium (Lovenox) 30 mg SUBCUT Q24H [facility] Last Admin: 02/17/20 18:14 Dose: 30 mg Documented by: DALE Sodium Chloride (Normal Saline) 1,000 mls @ 999 mls/hr IV ASDIRECTED [facility] Last Admin: 02/17/20 15:16 Dose: 999 mls/hr Documented by: GRISELDA Sodium Chloride (Normal Saline) 1,000 mls @ 125 mls/hr IV ASDIRECTED [facility] Last Infusion: 02/18/20 03:00 Dose: 75 mls/hr Documented by: Admin: 02/18/20 01:30 Dose: 125 mls/hr Documented by: Infusion: 02/18/20 00:54 Dose: 125 mls/hr Documented by: Admin: 02/17/20 16:54 Dose: 125 mls/hr Documented by: GRISELDA Piperacillin Sod/Tazobactam (Sod 4.5 gm/ Sodium Chloride) 100 mls @ 200 mls/hr IV Q6H [facility] Last Admin: 02/18/20 03:17 Dose: 200 mls/hr Documented by: Admin: 02/17/20 20:55 Dose: 200 mls/hr Documented by: YOON Sodium Chloride (Saline Flush) 10 ml FLUSH ASDIRECTED PRN PRN Reason: Keep Vein Open Last Admin: 02/17/20 15:16 Dose: 10 ml Documented by: GRISELDA Labs: Laboratory Tests 02/17/20 02/17/20 02/17/20 Range/Units 14:00 14:00 14:00 WBC 37.5 H* (4.5-12.0) X10-3/uL RBC 5.14 (4.30-5.75) x10(6)uL Hgb 16.1 (13.5-17.8) g/dL Hct 48.7 (30.0-51.3) % MCV 94.7 (80-96) fL MCH 31.4 (27.7-33.6) pg MCHC 33.1 (32.2-35.4) g/dL RDW 13.3 (11.5-15.5) % Plt Count 362 (125-369) X10(3)uL MPV 8.8 (7.4-10.4) fL Add Manual Diff Yes Neutrophils % (Manual) 92 H (46-82) % Band Neutrophils % 4 (0-6) % Lymphocytes % (Manual) 3 L (13-37) % Monocytes % (Manual) 1 L (4-12) % Sodium 141 (135-145) mmol/L Potassium 4.4 (3.5-5.3) mmol/L Chloride 103 (100-110) mmol/L Carbon Dioxide 28 (21-32) mmol/L BUN 23 H (7-18) mg/dL Creatinine 1.4 H (0.70-1.30) mg/dL Est Cr Clr Drug Dosing TNP Estimated GFR (MDRD) 54 L (>60) BUN/Creatinine Ratio 16.4 (9-20) Glucose 137 H (80-116) mg/dL Lactic Acid 3.8 H* (0.4-2.0) mmol/L Calcium 9.7 (8.6-10.2) mg/dL Total Bilirubin (0.1-1.3) mg/dL Direct Bilirubin (0.10-0.20) mg/dL AST (5-25) IU/L ALT (12-36) U/L Alkaline Phosphatase (56-112) IU/L Total Protein (6.0-8.0) g/dL Albumin (3.5-5.2) g/dL 02/17/20 Range/Units 14:00 WBC (4.5-12.0) X10-3/uL RBC (4.30-5.75) x10(6)uL Hgb (13.5-17.8) g/dL Hct (30.0-51.3) % MCV (80-96) fL MCH (27.7-33.6) pg MCHC (32.2-35.4) g/dL RDW (11.5-15.5) % Plt Count (125-369) X10(3)uL MPV (7.4-10.4) fL Add Manual Diff Neutrophils % (Manual) (46-82) % Band Neutrophils % (0-6) % Lymphocytes % (Manual) (13-37) % Monocytes % (Manual) (4-12) % Sodium (135-145) mmol/L Potassium (3.5-5.3) mmol/L Chloride (100-110) mmol/L Carbon Dioxide (21-32) mmol/L BUN (7-18) mg/dL Creatinine (0.70-1.30) mg/dL Est Cr Clr Drug Dosing Estimated GFR (MDRD) (>60) BUN/Creatinine Ratio (9-20) Glucose (80-116) mg/dL Lactic Acid (0.4-2.0) mmol/L Calcium (8.6-10.2) mg/dL Total Bilirubin 0.5 (0.1-1.3) mg/dL Direct Bilirubin 0.11 (0.10-0.20) mg/dL AST 18 D (5-25) IU/L ALT 13 D (12-36) U/L Alkaline Phosphatase 132 H (56-112) IU/L Total Protein 8.3 H (6.0-8.0) g/dL Albumin 3.1 L (3.5-5.2) g/dL Meds: Medications Generic Name Dose Route Start Last Admin Trade Name Freq PRN Reason Stop Dose Admin Acetaminophen 650 mg 02/17/20 16:44 Tylenol PO Q4H PRN fever, pain Albuterol 2.5 mg 02/17/20 16:44 Proventil Neb Soln INH Q6H PRN Dyspnea Donepezil HCl 10 mg 02/18/20 09:00 Aricept PO DAILY THOR Enoxaparin Sodium 30 mg 02/17/20 16:45 02/17/20 18:14 Lovenox SUBCUT 30 mg Q24H THOR Administration Sodium Chloride 1,000 mls @ 999 mls/hr 02/17/20 13:30 02/17/20 15:16 Normal Saline IV 999 mls/hr ASDIRECTED THOR Administration Sodium Chloride 1,000 mls @ 125 mls/hr 02/17/20 17:00 02/18/20 03:00 Normal Saline IV 75 mls/hr ASDIRECTED THOR Infusion Piperacillin Sod/Tazobactam 100 mls @ 200 mls/hr 02/17/20 21:00 02/18/20 03:17 Sod 4.5 gm/ Sodium Chloride IV 200 mls/hr Q6H THOR Administration Sodium Chloride 10 ml 02/17/20 13:30 02/17/20 15:16 Saline Flush FLUSH 10 ml ASDIRECTED PRN Administration Keep Vein Open Discontinued Medications Generic Name Dose Route Start Last Admin Trade Name Freq PRN Reason Stop Dose Admin Piperacillin Sod/Tazobactam 100 mls @ 200 mls/hr 02/17/20 14:45 02/17/20 15:17 Sod 4.5 gm/ Sodium Chloride IV 200 mls/hr Q6H THOR Administration Ondansetron HCl 4 mg 02/17/20 13:30 02/17/20 15:18 Zofran IVPUSH 02/17/20 13:31 4 mg ONETIME ONE Administration Departure - Departure Time of Disposition: 15:30 Disposition: Admitted As Inpatient 66 Condition: Good Clinical Impression: Aspiration pneumonia - Discharge Information Sepsis Event Note (ED) - Evaluation Sepsis Screening Result: No Definite Risk - My Orders Last 24 Hours: My Active Orders 02/17/20 13:30 Sodium Chloride 0.9% [Normal Saline] 1,000 ml IV ASDIRECTED Sodium Chloride 0.9% [Saline Flush] 10 ml FLUSH ASDIRECTED PRN Saline Lock Insert [OM.PC] Routine 02/17/20 14:19 Blood Culture x2 Reflex Set [OM.PC] Urgent 02/17/20 14:43 CULTURE BLOOD [BC] Urgent 02/17/20 14:56 CULTURE BLOOD [BC] Urgent - Assessment/Plan Last 24 Hours: My Active Orders 02/17/20 13:30 Sodium Chloride 0.9% [Normal Saline] 1,000 ml IV ASDIRECTED Sodium Chloride 0.9% [Saline Flush] 10 ml FLUSH ASDIRECTED PRN Saline Lock Insert [OM.PC] Routine 02/17/20 14:19 Blood Culture x2 Reflex Set [OM.PC] Urgent 02/17/20 14:43 CULTURE BLOOD [BC] Urgent 02/17/20 14:56 CULTURE BLOOD [BC] Urgent
[2020-02-17] MEDS ORDERED: Acetaminophen 325 MG Tab PO PRN (16:44)
[2020-02-17] MEDS ORDERED: Albuterol 0.083% 2.5 MG/3 ML Neb Soln INH PRN (16:44)
[2020-02-17] MEDS: Sodium Chloride 0.9% 1,000 ML IV SCH (16:54)
[2020-02-17] MEDS: Enoxaparin 30 MG/0.3 ML Syringe SUBCUT SCH (18:14)
--- NOTE | 2020-02-17 19:40 | HP ---
ADMISSION DATE: 02/17/2020 History is from the patient's mother and the ER physician, Evelyne, and his old record. Sebastien is unable to give me a history. CHIEF COMPLAINT: Aspiration. HISTORY OF PRESENT ILLNESS: Sebastien is a 49-year-old resident of [facility] with a longstanding history of high functioning Down syndrome until he developed Alzheimer disease starting about 5 years ago. He has now had a slow and steady decline in mental status such that he no longer recognizes family, he is confined to wheelchair without ambulation, etc. According to Dr. Stubbs, Sebastien was at the senior living yesterday when he aspirated a hot dog. He was evaluated at the emergency room. X-rays and labs were normal, and he was returned to the senior living. He came back today with lethargy and weakness, and on re-evaluation, was found to have a white count of 37,000, lactic acid of 3.8, and much more physical lethargy. For this reason, he is admitted with aspiration. He was started on IV fluids in the emergency room and started on Zosyn antibiotic for aspiration. PAST MEDICAL HISTORY: Down syndrome with good function for most of his life until memory problems started about 5 years ago. Approximately 3 years ago, his diagnosis was made, and he moved in to [facility] in December of 2017. Past medical history also includes history of VSD repair, gout, history of gastritis, and obesity plus probable old left frontal lobe infarct. MEDICATIONS: 1. Aricept 10 mg daily. 2. Tylenol p.r.n. 3. Allopurinol 100 mg daily. 4. Omeprazole 20 mg daily. 5. Depakote Sprinkles 250 mg daily. 6. Proventil nebulizers p.r.n. 7. Laxatives, stool softener, etc. P.r.n. 8. Claritin 10 mg daily. ALLERGIES: Sulfa caused a rash. HABITS: Nonsmoker and nondrinker. FAMILY AND SOCIAL HISTORY: The patient is accompanied by his mother who has cared for him his whole life and would still like to have him at home with her if she was able. His father approximately 6 months ago after declining condition poststroke. REVIEW OF SYSTEMS: Not obtainable from the patient, but positive for the general declining condition, memory problems, low level of physical and mental functioning, poor recognition, etc. PHYSICAL EXAMINATION: GENERAL: He opens his eyes to command and voice but does not verbalize. VITAL SIGNS: Blood pressure 112/76, pulse 89 and regular, respirations 20, O2 saturation 92% on room air, temperature 99.9. Weight approximately 162 pounds. SKIN: Anicteric. Warm, dry without rash. HEENT: Tongue is large. Mouth is slightly dry. LUNGS: Have rhonchi bilaterally. No focal consolidation is heard. HEART: Regular without murmur or gallop. ABDOMEN: Obese, soft, and nontender. EXTREMITIES: Show no edema at the ankles and atrophied lower extremities. LABORATORY DATA: White count 37,500, hemoglobin 16.1, 92 segs, 4 bands, 3 lymphs, 1 mono. Electrolytes normal. BUN 23, creatinine 1.4. Lactic acid 3.8. ASSESSMENT: 1. Aspiration pneumonia with sepsis. 2. Alzheimer's dementia. 3. Down syndrome. 4. Chronic renal insufficiency. 5. Obesity. 6. Reactive airways, history of likely previous aspirations. PLAN: He is admitted to the hospital. He is started already on IV fluid bolus and IV antibiotics. We will continue acute cares for the aspiration as well as palliative cares for his underlying dementia, declining condition, Down syndrome, etc. /[id number] SHAYY/IVY
[2020-02-17] MEDS: Piperacillin/Tazobactam 4.5 GM in Sodium Chloride 0.9% 100 ML IV SCH (20:55)
[2020-02-18] MEDS: Sodium Chloride 0.9% 1,000 ML IV SCH ×2 (01:30→15:21)
[2020-02-18] MEDS: Piperacillin/Tazobactam 4.5 GM in Sodium Chloride 0.9% 100 ML IV SCH ×4 (03:17→23:02)
[2020-02-18] MEDS: Vancomycin/Dextrose 5%-Water 1 GM in Premix Bag 1 BAG IV SCH ×2 (08:17→15:57)
--- NOTE | 2020-02-18 11:03 | PN ---
DATE SEEN: 02/18/2020 HISTORY: Sebastien is a 49[facility] with a history of advancing dementia, Down syndrome, and an episode of aspiration of a hot dog 2 days prior to admission. He was seen initially in the ER, was stable, and discharged to the jail. He returned yesterday with fever and a high white count, and was admitted for aspiration pneumonia. PHYSICAL EXAMINATION: GENERAL: He has been stable overnight, temperature max 99.9. He is examined this morning in his bed and is still drowsy with snoring respirations. VITAL SIGNS: Blood pressure 116/68, pulse 85 and regular, respirations 24, O2 saturation 93% on 1 L nasal cannula, temp 99.4. SKIN: Shows no rash. He does exhibit snoring respirations with signs of obstructive sleep apnea. LUNGS: Clear with good air movement bilaterally. HEART: Regular without murmur or gallop. ABDOMEN: Soft and nontender. EXTREMITIES: Showed no edema. LABORATORY DATA: Initial white count 02491 yesterday, down to 26,000 this morning. Basic metabolic panel is normal. ASSESSMENT: 1. Aspiration pneumonia. 2. Alzheimer's dementia. 3. Down syndrome. 4. Likely obstructive sleep apnea. PLAN: We will continue to monitor his oxygen saturations, provide O2 as necessary, continue IV antibiotics, and anticipate return to the jail upon improvement. /[id number] SHAYY/IVY
[2020-02-18] MEDS: Donepezil 10 MG Tab PO SCH (11:47)
[2020-02-18] MEDS: Enoxaparin 30 MG/0.3 ML Syringe SUBCUT SCH (16:51)
[2020-02-18] MEDS ORDERED: Piperacillin/Tazobactam 4.5 GM in Sodium Chloride 0.9% 100 ML IV SCH (17:00)
[2020-02-19] MEDS: Vancomycin/Dextrose 5%-Water 1 GM in Premix Bag 1 BAG IV SCH (00:03)
[2020-02-19] MEDS: Piperacillin/Tazobactam 4.5 GM in Sodium Chloride 0.9% 100 ML IV SCH ×4 (05:26→22:29)
[2020-02-19] MEDS: Sodium Chloride 0.9% 1,000 ML IV SCH (08:20)
[2020-02-19] MEDS: Donepezil 10 MG Tab PO SCH (08:48)
--- NOTE | 2020-02-19 10:42 | PN ---
DATE SEEN: 02/19/2020 HISTORY: Sebastien is a 49-year-old resident of [facility] with a history of Down syndrome and advanced dementia. He was admitted after an aspiration of a hot dog that resulted in severe dyspnea, lethargy, and elevated white count. He has been treated with IV Zosyn and vancomycin. He has improved clinically. He is examined in his bed this morning. PHYSICAL EXAMINATION: GENERAL: He is noncommunicative verbally. LUNGS: Clear, however. HEART: Regular. ABDOMEN: Obese, soft, nontender. EXTREMITIES: No edema at the ankles. LABORATORY DATA: White count down from 37,000 on admission to 13,000 today. Vancomycin trough level elevated at 21.7. ASSESSMENT: 1. Aspiration pneumonia. 2. Down syndrome. 3. Alzheimer's dementia. PLAN: We will continue IV antibiotics for another 24 hours with plans to return Sebastien to the residential if improved adequately. We will continue to provide palliative care measures for his underlying dementia, Down syndrome, etc. /[id number] SHAYY/IVY
[2020-02-19] MEDS: Vancomycin/Dextrose 5%-Water 200 ML IV SCH (13:13)
[2020-02-19] MEDS: Enoxaparin 30 MG/0.3 ML Syringe SUBCUT SCH (17:00)
[2020-02-20] MEDS: Vancomycin/Dextrose 5%-Water 200 ML IV SCH (00:10)
[2020-02-20] MEDS: Sodium Chloride 0.9% 1,000 ML IV SCH ×2 (01:23→15:09)
[2020-02-20] MEDS: Piperacillin/Tazobactam 4.5 GM in Sodium Chloride 0.9% 100 ML IV SCH ×4 (05:09→22:52)
[2020-02-20] MEDS: Donepezil 10 MG Tab PO SCH (08:44)
--- NOTE | 2020-02-20 17:13 | CR ---
INDICATION: Follow up pneumonia. CHEST, TWO VIEWS: Frontal and lateral views of the chest 02/20/20 were compared with 02/17/20 and 02/16/20. The heart remains prominent. The aorta is somewhat tortuous. Pulmonary vasculature remains prominent with interstitial changes, raising question of CHF and interstitial lung edema, although infection could also be responsible for the interstitial changes as well as fibrosis. Increasing alveolar-appearing patchy infiltration is noted in the upper middle lung field and both lower lung abad, especially lung bases, which may also be on the basis of lung edema - acute pulmonary edema or possibly superimposed areas of pneumonia, which are becoming more prominent. Lateral pleural thickening is again noted and may represent pleural fibrosis. This should be correlated clinically. The diaphragm leaves are flattened with prominent AP diameter and hyperaeration, suggesting COPD additionally. IMPRESSION: 1. ASHD, cardiomegaly, CHF and interstitial as well as possible acute pulmonary edema with possibility of areas of patchy superimposed pneumonia and possibly interstitial pneumonia versus fibrosis could also be considerations. 2. COPD. 3. Exogenous obesity. MTDD
[2020-02-20] MEDS: Enoxaparin 30 MG/0.3 ML Syringe SUBCUT SCH (17:33)
--- NOTE | 2020-02-20 18:32 | PN ---
DATE SEEN: 02/20/2020 SUBJECTIVE: Followup pneumonia. Sebastien Elizalde is a 49-year-old male, resident of [facility], was admitted on 02/17/2020. Suspicion for aspiration pneumonia. Had eaten somewhat pureed hot dog. Clinically better. Markedly elevated white count of 37,000, mild respiratory distress. He is on IV Zosyn and vancomycin. Creatinine a clinical concern. Better. White count is improved, symptomatic less so. OBJECTIVE: VITAL SIGNS: 36.2, pulse of 51, 114/65, 18 is the respiration, 96%. GENERAL: Lethargic, pretty unresponsive. NECK: Benign. Thyroid small. CHEST: Decreased breath sounds in left upper lobe. HEART: No ectopy or murmur. ABDOMEN: Benign. ASSESSMENT: Pneumonia, under surveillance. PLAN: We will do a chest x-ray, discontinue Zosyn, check his creatinine. Chest x-ray to determine clinical discharge, possibility 02/21/2020. /[id number] MARIEL/IVY
[2020-02-21] MEDS: Piperacillin/Tazobactam 4.5 GM in Sodium Chloride 0.9% 100 ML IV SCH ×4 (04:29→22:43)
[2020-02-21] MEDS: Sodium Chloride 0.9% 1,000 ML IV SCH (06:13)
[2020-02-21] MEDS ORDERED: Furosemide 40 MG/4 ML VIAL IVPUSH SCH (09:00)
[2020-02-21] MEDS: Sodium Chloride 0.9% 10 ML Syringe FLUSH PRN ×4 (09:20→22:43)
[2020-02-21] MEDS: Donepezil 10 MG Tab PO SCH (09:21)
[2020-02-21] MEDS: Enoxaparin 30 MG/0.3 ML Syringe SUBCUT SCH (17:06)
[2020-02-22] MEDS: Piperacillin/Tazobactam 4.5 GM in Sodium Chloride 0.9% 100 ML IV SCH (04:46)
[2020-02-22] MEDS: Sodium Chloride 0.9% 10 ML Syringe FLUSH PRN (04:47)
[2020-02-22] MEDS ORDERED: Levofloxacin 500 MG Tab PO SCH (09:30)
[2020-02-22] MEDS: Donepezil 10 MG Tab PO SCH (09:34)
--- NOTE | 2020-02-22 11:04 | PN ---
DATE SEEN: 02/21/2020 SUBJECTIVE: Sebastien Mendez is a 49-year-old male, resident of [facility] in [place], [place], admitted with complicated respiratory difficulty and pneumonia. Appears better. Radiograph on 02/19 revealed increasing vascular congestion. Vital signs have been stable. Otherwise, clinically comfortable. MICROBIOLOGY: Blood cultures of 5 days' duration, no growth. PHYSICAL EXAMINATION: VITAL SIGNS: 35.9, 85 is the pulse, 92/62, 22 is the respirations, 97%. GENERAL: Appears comfortable. Little tachypneic. HEENT: Mouth and oropharynx clear. NECK: Benign. Thyroid small. No JVD. CHEST: Decreased breath sounds, left lower lobe, left-sided lung field. HEART: Occasional ectopy, soft murmur. Grade 2/6 systolic ejection murmur. ABDOMEN: Benign. ASSESSMENT: Pneumonia, resolution. PLAN: We will continue IV antibiotics, blood cultures to follow. /[id number] MARIEL/IVY
[2020-02-22 11:27] VITALS: BP 105/66; PULSE 47
--- NOTE | 2020-02-22 14:40 | DISCH ---
DISCHARGE DATE: 02/22/2020 DIAGNOSIS: Pneumonia. HISTORY: Sebastien Elizalde is a 49-year-old single male, resident of [facility], was admitted on 02/17/2020. [facility]. Issue of eating a hot dog, questionable aspiration, initially seen in the ER and discharged back to the home, increasing respiratory difficulty, elevated white count and clinical illness necessitating hospitalization. Please see history and physical per Dr. Gary. HOSPITAL COURSE: The patient admitted with supportive supplemental O2 or respiratory treatments, intravenous antibiotics, and IV fluids. Clinical response was satisfactory. White count went from 37.5 to 26.7, at 13.6; hemoglobin 16.1 to 12.3. Lactic acid went from 3.8 to 3.2, 0.8 on 02/18/2020. Diet was advanced. Intake was moderated, needed help with feedings. Appeared to have a component of congestive heart failure, was responsive to IV Lasix, oral Lasix will be continued. PHYSICAL EXAMINATION: VITAL SIGNS: 35.9, 55 is the pulse, 114/88, 20 is the respiration, 99%. GENERAL: Awake, alert, appropriate. HEENT: Mouth and oropharynx clear. NECK: Benign. Thyroid is small. CHEST: Better air exchange, particularly in left side. HEART: Distant heart sounds. Grade 2/6 systolic ejection murmur. ABDOMEN: Benign. ASSESSMENT: Pneumonia. PLAN: We will discharge home on oral Levaquin, adequate fluids and hydration, oral prednisone. Medications reviewed and appropriate. Follow up iqra /[id number] MARIEL/IVY
[2020-02-23] MEDS ORDERED: Furosemide 20 MG Tab PO SCH (09:00)
== END 2020-02-22 11:10 | disposition home or self-care (01) | DRG 871 ==
LOC: FB.ED 13:08 → FB.MS 16:14
PROVIDERS: ADMIT Emergency Medicine; ATTEND Family Medicine
DX: A41.9 Sepsis, unspecified organism (principal); J69.0 Pneumonitis due to inhalation of food and vomit; J18.9 Pneumonia, unspecified organism; Q90.9 Down syndrome, unspecified; M10.9 Gout, unspecified; K29.70 Gastritis, unspecified, without bleeding; E66.9 Obesity, unspecified; R41.9 Unspecified symptoms and signs involving cognitive functions and awareness; N18.9 Chronic kidney disease, unspecified; Z98.890 Other specified postprocedural states; G30.9 Alzheimer's disease, unspecified; F02.80 Dementia in other diseases classified elsewhere, unspecified severity, without behavioral disturbance, psychotic disturbance, mood disturbance, and anxiety; H54.7 Unspecified visual loss; J30.9 Allergic rhinitis, unspecified; K21.9 Gastro-esophageal reflux disease without esophagitis; R32 Unspecified urinary incontinence; M72.2 Plantar fascial fibromatosis; F41.9 Anxiety disorder, unspecified; L25.9 Unspecified contact dermatitis, unspecified cause; Z90.49 Acquired absence of other specified parts of digestive tract; Z79.899 Other long term (current) drug therapy; Z88.2 Allergy status to sulfonamides; Z88.1 Allergy status to other antibiotic agents; Z88.8 Allergy status to other drugs, medicaments and biological substances; Z99.3 Dependence on wheelchair; Z68.29 Body mass index [BMI] 29.0-29.9, adult
CPT/HCPCS: 36415; 71046; 80048; 80076; 80202; 82565; 83605; 85025; 87040; 94760; 96361; 96365; 96375; 99284; 99284-25; A9270-GY; J1650; J1940; J2405; J2543; J3370; J7030; J7050

== ENCOUNTER 2020-04-01 13:54 | Emergency (ER) | payer MEDICARE, MEDICAID ==
--- NOTE | 2020-04-01 15:38 | CR ---
INDICATION: Followup possible pneumonia 6 weeks ago. Complains of congestion now. No fever. CHEST ONE VIEW: AP upright portable view of the chest 04/01/20 was compared with 02/20/20 and 02/17/20. There is again noted mild prominence of the heart with post median sternotomy change. The heart is felt to be near the upper limits of normal in size. The aorta is tortuous with calcification in the arch. No definite evidence of CHF, infiltrate or definite effusion was identified on the current study. IMPRESSION: Significant improvement in the appearance of the chest - no definite acute process. MTDD
--- NOTE | 2020-04-01 15:43 | EDM.PDOC ---
ED HPI GENERAL MEDICAL PROBLEM - General Chief Complaint: Respiratory Problem Time Seen by Provider: 04/01/20 14:10 Source of Information: Reports: Patient, Family, Alf Records History Limitations: Reports: No Limitations - History of Present Illness INITIAL COMMENTS - FREE TEXT/NARRATIVE: c/o congestion from skilled nursing, no fever there had pneumonia 6w ago with inc'd WBC however, CxR 1v is neg today by prelim ED reading CBC neg (no inc'd WBC, no left shift) VSS, no fever here CMP with inc'd BUN and low alb no urine obtained as pt without urinary sxs, last u/a was neg mother at bedside, labs and CxR shown to here, she is agreement with tx plan pt is nonverbal - Related Data Allergies Allergy/AdvReac Type Severity Reaction Status Date / Time sulfamethoxazole Allergy Hives Verified 04/01/20 14:22 [From Bactrim] trimethoprim [From Bactrim] Allergy Hives Verified 04/01/20 14:22 seasonal Allergy Cough Uncoded 04/01/20 14:22 Home Meds: Home Meds allopurinoL [Zyloprim] 100 mg PO DAILY 12/15/17 [History] Acetaminophen [Tylenol] 650 mg PO Q4H PRN 01/30/19 [History] Donepezil HCl [Aricept] 10 mg PO DAILY 01/30/19 [History] Lanolin/Mineral Oil [Eucerin Original Lotion] 1 applic TP BID 01/30/19 [History] Loperamide HCl [Diamode] 2 mg PO ASDIRECTED 01/30/19 [History] Loratadine [Claritin] 10 mg PO DAILY 01/30/19 [History] Magnesium Hydroxide [Milk of Magnesia] 30 ml PO DAILY PRN 01/30/19 [History] Mineral Oil/Pet Hy-Phl Oint [Aquaphor Healing Ointment] 1 applic TOP Q8H 01/30/19 [History] Omeprazole Magnesium 20 mg PO DAILY 01/30/19 [History] Acetaminophen [Acetaminophen Extra Strength] 1,000 mg PO BID 02/16/20 [History] Albuterol [Proventil Neb Soln] 3 ml INH Q6H PRN 02/16/20 [History] Sennosides/Docusate Sodium [Senna-S] 1 tab PO BID 02/16/20 [History] Divalproex Sodium [Depakote Sprinkle] 250 mg PO DAILY@1200 02/17/20 [History] Bisacodyl [Gentle Laxative] 10 mg RECTAL Q72H PRN 02/20/20 [History] Eye Scrub- 1/2 Strength Baby Shampoo 1 applic EYEBOTH BID 02/20/20 [History] guaiFENesin 10 ml PO Q4H PRN 02/20/20 [History] Furosemide [Lasix] 20 mg PO DAILY tablet 02/22/20 [Rx] Furosemide [Lasix] 40 mg IVPUSH DAILY vial 02/22/20 [Rx] Azithromycin 250 mg PO DAILY #6 tablet 04/01/20 [Rx] Past Medical History HEENT History: Reports: Allergic Rhinitis, Impaired Vision, Other (See Below) Other HEENT History: seasonal allergies. Cardiovascular History: Reports: Heart Murmur Other Cardiovascular History: open heart surgery age 2, repaired septal defect Respiratory History: Reports: None Gastrointestinal History: Reports: Gastritis, GERD Other Gastrointestinal History: GOUT Genitourinary History: Reports: Urinary Incontinence Musculoskeletal History: Reports: Gout Other Musculoskeletal History: PLANTAR FASCIAL FIBROMATOSIS Neurological History: Reports: Other (See Below) Other Neuro History: DOWN SYNDROME, ADULT FAILURE TO THRIVE SYNDROME, ACUTE ENCEPHALOPATHY. Parents state he has mental capacity of 2year/4month old child Psychiatric History: Reports: Anxiety Other Psychiatric History: DOWN SYNDROME Endocrine/Metabolic History: Reports: Obesity/BMI 30+ Hematologic History: Reports: None Immunologic History: Reports: None Oncologic (Cancer) History: Reports: None Dermatologic History: Reports: Eczema, Other (See Below) Other Dermatologic History: CONTACT DERMATITIS - Infectious Disease History Infectious Disease History: Reports: Chicken Pox - Past Surgical History Head Surgeries/Procedures: Reports: None Cardiovascular Surgical History: Reports: Other (See Below) Other Cardiovascular Surgeries/Procedures: VSD REPAIR 1973 Respiratory Surgical History: Reports: None GI Surgical History: Reports: Appendectomy, Other (See Below) Other GI Surgeries/Procedures: gastroscopy 2014 Male Surgical History: Reports: Circumcision Endocrine Surgical History: Reports: None Musculoskeletal Surgical History: Reports: None, Other (See Below) Other Musculoskeletal Surgeries/Procedures:: much difficult in moving about - legs just not supportive Social & Family History - Family History Family Medical History: Noncontributory - Caffeine Use Caffeine Use: Reports: None ED ROS GENERAL - Review of Systems Review Of Systems: See Below Constitutional: Reports: No Symptoms HEENT: Reports: No Symptoms Respiratory: Reports: Other (congestion) Cardiovascular: Reports: No Symptoms Endocrine: Reports: No Symptoms GI/Abdominal: Reports: No Symptoms : Reports: No Symptoms Musculoskeletal: Reports: No Symptoms Skin: Reports: No Symptoms Neurological: Reports: No Symptoms Psychiatric: Reports: No Symptoms Hematologic/Lymphatic: Reports: No Symptoms Immunologic: Reports: No Symptoms ED EXAM, GENERAL - Physical Exam Exam: See Below Exam Limited By: No Limitations General Appearance: Alert, WD/WN, Other (resting comfortably supine, no cough observed, no dyspnea, no distress) Nose: Normal Inspection, Normal Mucosa, No Blood Head: Atraumatic, Normocephalic Neck: Normal Inspection, Supple, Non-Tender, Full Range of Motion. No: Lymphadenopathy (R), Lymphadenopathy (L) Respiratory/Chest: No Respiratory Distress, Lungs Clear, Normal Breath Sounds, No Accessory Muscle Use Cardiovascular: Regular Rate, Rhythm, No Edema, No Gallop, No Murmur, No Rub GI/Abdominal: Soft, Non-Tender Back Exam: Normal Inspection, Full Range of Motion, NT Extremities: Normal Inspection, Normal Range of Motion, Non-Tender, Normal Capillary Refill, No Pedal Edema Neurological: Alert, CN II-XII Intact, No Motor/Sensory Deficits Psychiatric: Normal Affect, Normal Mood Skin Exam: Warm, Dry, Intact, Normal Color, No Rash Lymphatic: No Adenopathy Course - Vital Signs Last Recorded V/S: Last Vital Signs Temp 36.7 C 04/01/20 13:54 Pulse 64 04/01/20 13:54 Resp 20 04/01/20 13:54 BP 109/63 04/01/20 13:54 Pulse Ox 93 L 04/01/20 13:54 - Orders/Labs/Meds Orders: Active Orders 24 hr Category Date Time Status Chest 1V Frontal [CR] Stat Exams 04/01/20 14:09 Taken Labs: Laboratory Tests 04/01/20 04/01/20 04/01/20 Range/Units 14:20 14:20 14:20 WBC 9.0 (4.5-12.0) X10-3/uL RBC 4.56 (4.30-5.75) x10(6)uL Hgb 14.4 (13.5-17.8) g/dL Hct 42.9 (30.0-51.3) % MCV 94.0 (80-96) fL MCH 31.7 (27.7-33.6) pg MCHC 33.7 (32.2-35.4) g/dL RDW 13.7 (11.5-15.5) % Plt Count 373 H (125-369) X10(3)uL MPV 8.8 (7.4-10.4) fL Neut % (Auto) 61.8 (46-82) % Lymph % (Auto) 20.6 (13-37) % Morris % (Auto) 11.5 (4-12) % Eos % (Auto) 5 (1.0-5.0) % Baso % (Auto) 2 (0-2) % Neut # (Auto) 5.6 (1.6-8.3) # Lymph # (Auto) 1.9 (0.6-5.0) # Morris # (Auto) 1.0 (0.0-1.3) # Eos # (Auto) 0.4 (0.0-0.8) # Baso # (Auto) 0.1 (0.0-0.2) # Sodium 142 (135-145) mmol/L Potassium 3.7 (3.5-5.3) mmol/L Chloride 102 D (100-110) mmol/L Carbon Dioxide 33 H (21-32) mmol/L BUN 23 H (7-18) mg/dL Creatinine 1.0 (0.70-1.30) mg/dL Est Cr Clr Drug Dosing TNP Estimated GFR (MDRD) > 60 (>60) BUN/Creatinine Ratio 23.0 H (9-20) Glucose 136 H (80-116) mg/dL Calcium 9.0 (8.6-10.2) mg/dL Total Bilirubin 0.3 (0.1-1.3) mg/dL AST 14 D (5-25) IU/L ALT 17 D (12-36) U/L Alkaline Phosphatase 128 H (56-112) IU/L Troponin I (4.0-60.3) pg/mL C-Reactive Protein 18.0 H* (0.5-0.9) mg/dL NT-Pro-B Natriuret Pep (<=125) pg/mL Total Protein 8.0 (6.0-8.0) g/dL Albumin 2.6 L (3.5-5.2) g/dL Globulin 5.4 g/dL Albumin/Globulin Ratio 0.5 10/15/20 Range/Units 14:20 WBC (4.5-12.0) X10-3/uL RBC (4.30-5.75) x10(6)uL Hgb (13.5-17.8) g/dL Hct (30.0-51.3) % MCV (80-96) fL MCH (27.7-33.6) pg MCHC (32.2-35.4) g/dL RDW (11.5-15.5) % Plt Count (125-369) X10(3)uL MPV (7.4-10.4) fL Neut % (Auto) (46-82) % Lymph % (Auto) (13-37) % Morris % (Auto) (4-12) % Eos % (Auto) (1.0-5.0) % Baso % (Auto) (0-2) % Neut # (Auto) (1.6-8.3) # Lymph # (Auto) (0.6-5.0) # Morris # (Auto) (0.0-1.3) # Eos # (Auto) (0.0-0.8) # Baso # (Auto) (0.0-0.2) # Sodium (135-145) mmol/L Potassium (3.5-5.3) mmol/L Chloride (100-110) mmol/L Carbon Dioxide (21-32) mmol/L BUN (7-18) mg/dL Creatinine (0.70-1.30) mg/dL Est Cr Clr Drug Dosing Estimated GFR (MDRD) (>60) BUN/Creatinine Ratio (9-20) Glucose (80-116) mg/dL Calcium (8.6-10.2) mg/dL Total Bilirubin (0.1-1.3) mg/dL AST (5-25) IU/L ALT (12-36) U/L Alkaline Phosphatase (56-112) IU/L Troponin I 12.2 (4.0-60.3) pg/mL C-Reactive Protein (0.5-0.9) mg/dL NT-Pro-B Natriuret Pep 87 (<=125) pg/mL Total Protein (6.0-8.0) g/dL Albumin (3.5-5.2) g/dL Globulin g/dL Albumin/Globulin Ratio - Re-Assessments/Exams Free Text/Narrative Re-Assessment/Exam: 04/01/20 15:48 CxR is clear c/w 6w ago, small sternal wires noted from VSD repair as child Departure - Departure Time of Disposition: 15:38 Disposition: DC/Tfer to [facility] 63 Condition: Good Clinical Impression: Acute bronchitis, Pulmonary congestion, Elevated C-reactive protein (CRP) - Discharge Information *PRESCRIPTION DRUG MONITORING PROGRAM REVIEWED*: Not Applicable *COPY OF PRESCRIPTION DRUG MONITORING REPORT IN PATIENT JC: Not Applicable Prescriptions: Azithromycin 250 mg PO DAILY #6 tablet Instructions: Acute Bronchitis, Adult Referrals: Remi Sharma MD [Primary Care Provider] - Additional Instructions: You vital signs and labs and chest x-ray are at baseline except for an elevated c-reactive protein, which suggests infection in the lung from acute bronchitis. Continue current medications. For infection, take azithromycin 250 mg 2 tabs, then 1 tab daily for 4 more days. In one week, recheck a CBC and CRP. See your doctor in one week, earlier if not getting better. Sepsis Event Note (ED) - Evaluation Sepsis Screening Result: No Definite Risk - Focused Exam Vital Signs: Vital Signs Temp Pulse Resp BP Pulse Ox 04/01/20 13:54 36.7 C 64 20 109/63 93 L - My Orders Last 24 Hours: My Active Orders 04/01/20 14:09 Chest 1V Frontal [CR] Stat - Assessment/Plan Last 24 Hours: My Active Orders 04/01/20 14:09 Chest 1V Frontal [CR] Stat
[2020-04-01] MEDS: cefTRIAXone 1 GM Vial IM ONE (15:55)
[2020-04-01 16:20] VITALS: BP 125/77; PULSE 68
== END 2020-04-01 16:24 ==
LOC: FB.ED 13:54
DX: J20.9 Acute bronchitis, unspecified (principal); K21.9 Gastro-esophageal reflux disease without esophagitis; M10.9 Gout, unspecified; Q90.9 Down syndrome, unspecified; F41.9 Anxiety disorder, unspecified; E66.9 Obesity, unspecified; R09.89 Other specified symptoms and signs involving the circulatory and respiratory systems; R79.89 Other specified abnormal findings of blood chemistry; Z88.2 Allergy status to sulfonamides; Z88.1 Allergy status to other antibiotic agents; Z91.048 Other nonmedicinal substance allergy status; Z79.899 Other long term (current) drug therapy
CPT/HCPCS: 36415; 71045; 80053; 83880; 84484; 85025; 86140; 96372; 99283; J0696

== ENCOUNTER 2020-06-03 06:17 | Inpatient (IN) | payer MEDICARE, OTHER, MEDICAID ==
[2020-06-03] MEDS: Sodium Chloride 0.9% 10 ML Syringe FLUSH PRN (07:45)
[2020-06-03] MEDS: Sodium Chloride 0.9% 1,000 ML IV SCH ×3 (07:45→21:45)
[2020-06-03] MEDS ORDERED: Ondansetron 4 MG/2 ML SDV IVPUSH ONE (08:10)
[2020-06-03] MEDS ORDERED: Iopamidol 755 Mg/ML 100 ML Bottle IV ONE (10:44)
--- NOTE | 2020-06-03 12:02 | CR ---
INDICATION: Nausea and vomiting. CHEST ONE VIEW: Portable AP upright view of the chest 06/03/20 was compared with 04/01/20 and 02/20/20. The heart appears somewhat prominent in size, but not grossly enlarged. Upper lung field pulmonary vasculature appears slightly prominent raising question of mild degree of CHF, or early CHF. Heavy markings are noted at the left lung base raising question of patchy pneumonia in that area. Findings compatible with COPD and exogenous obesity are noted. Median sternotomy is again noted. IMPRESSION: 1. Question mild or early CHF with slightly prominent heart. Full inspiration PA and lateral views of the chest may be helpful when clinically possible in that regard. 2. Possible patchy pneumonia in the lower lung field on the left, especially at the lung base - lower lobe. 3. Probable COPD. 4. Appearance of exogenous obesity. MTDD
--- NOTE | 2020-06-03 12:22 | CT ---
INDICATION: Leukocytosis. CT ABDOMEN AND PELVIS WITHOUT AND WITH CONTRAST: Spiral 2.5 mm axial sections were obtained through the abdomen and pelvis initially without IV contrast and then with 100 mL [id number] at 2 cc per second with sagittal and coronal reconstructions 06/03/20 - no comparisons. Total exam DLP was 1376.86 mGy-cm. Infiltrate is noted in the left lower lobe, some of it is peripheral raising question of COVID-19. There is also a lesser degree of infiltration in the right lower lobe. The heart appears to be at the upper limits of normal in size. No pericardial effusion was seen. Details somewhat limited due to patient inability to move his left arm. There is noted a ventral hernia just cranial to the umbilicus with a small ostium of 12 mm. The hernia itself measured 66 x 29 mm transversely and anterior-posteriorly. No significant inguinal hernia was seen. There is thickening of the wall of the urinary bladder which could be on the basis of cystitis and should be correlated clinically. No evidence of renal calcinosis is seen. What appears to be an appendiceal stump is noted which may represent post appendectomy change. No evidence of bowel obstruction or free air was seen. A mild dextroconcave scoliosis is noted at the upper middle lumbar spine. The kidneys appeared normal without evidence of pyelonephritis or obstructive uropathy. No evidence of renal calcinosis was noted. The liver, gallbladder, adrenal glands, spleen, and pancreas appeared normal. No hepatic ductal dilatation was seen. No retroperitoneal masses were identified. No organomegaly, mass lesions, or free fluid collections were identified in the abdomen or pelvis. IMPRESSION: 1. Appendix not visualized, there is what appears to be an appendiceal stump suggesting appendectomy - correlate clinically. 2. Pneumonia is noted, fairly severe in the left lower lobe and moderate in the right lower lobe. The appearance raises question of COVID-19. 3. Thickening of the wall of the urinary bladder is noted which may be on the basis of cystitis and should be correlated clinically. 4. Ventral hernia noted with small ostium and including only fat. A report was called to Dr. Stubbs at 1346 hours. [facility]
[2020-06-03] MEDS ORDERED: Piperacillin/Tazobactam 4.5 GM in Sodium Chloride 0.9% 100 ML IV SCH (12:45)
[2020-06-03] MEDS ORDERED: Acetaminophen Soln 650 MG/20.3 ML UD Cup PO ONE (12:52)
--- NOTE | 2020-06-03 14:01 | PCM.HP.2 ---
H&P History of Present Illness - General Date of Service: 06/03/20 Admit Problem/Dx: Admission Diagnosis/Problem Admission Diagnosis/Problem Sepsis Source of Information: Provider History Limitations: Reports: Physical Impairment (nonverbal, Downs syndrome) - History of Present Illness Initial Comments - Free Text/Narative: History obtained from ER provider, Sebastien has been having nausea, vomiting and diarrhea for past 2 days with low grade fevers. He was brought to ER from [facility] today, his blood pressure was 86/61, Temp 98.1, oxygen desaturated to 87%, but to 96% on 2L. CT abdomen/pelvis was done showed L>R lower lobe pneumonias, thickening of bladder wall. UA showed hematuria but no infection. Lactic acid was 3.6, repeat is pending. WBC was 19.5. Cr 1.0. Covid negative, Influenza pending. He has Down's Syndrome, non-verbal, lives at [facility], his mother had been notified of transfer to ER and admission. History of aspiration pneumonia. After IV fluids in ER, his blood pressure improved to 114/57, he was started on Zosyn in ER, will be continued on floor. He is a DNR/DNI. - Related Data Allergies/Adverse Reactions: Allergies Allergy/AdvReac Type Severity Reaction Status Date / Time sulfamethoxazole Allergy Hives Verified 04/01/20 14:22 [From Bactrim] trimethoprim [From Bactrim] Allergy Hives Verified 04/01/20 14:22 seasonal Allergy Cough Uncoded 04/01/20 14:22 Home Medications: Home Meds allopurinoL [Zyloprim] 100 mg PO DAILY 12/15/17 [History] Donepezil HCl [Aricept] 10 mg PO DAILY 01/30/19 [History] Lanolin/Mineral Oil [Eucerin Original Lotion] 1 applic TP BID 01/30/19 [History] Loperamide HCl [Diamode] 2 mg PO ASDIRECTED 01/30/19 [History] Loratadine [Claritin] 10 mg PO DAILY 01/30/19 [History] Omeprazole Magnesium 20 mg PO DAILY 01/30/19 [History] Acetaminophen [Acetaminophen Extra Strength] 1,000 mg PO BID 02/16/20 [History] Sennosides/Docusate Sodium [Senna-S] 1 tab PO BID 02/16/20 [History] Divalproex Sodium [Depakote Sprinkle] 125 mg PO DAILY@1200 02/17/20 [History] Bisacodyl [Gentle Laxative] 10 mg RECTAL Q72H PRN 02/20/20 [History] Eye Scrub- 1/2 Strength Baby Shampoo 1 applic EYEBOTH BID 02/20/20 [History] guaiFENesin 10 ml PO Q4H PRN 02/20/20 [History] Acetaminophen [Tylenol] 650 mg PO Q4H PRN 06/03/20 [History] Albuterol/Ipratropium [DuoNeb 3.0-0.5 MG/3 ML] 3 ml IH BID 06/03/20 [History] Albuterol/Ipratropium [DuoNeb 3.0-0.5 MG/3 ML] 3 ml IH Q4H PRN 06/03/20 [History] Magnesium Hydroxide [Milk of Magnesia] 30 ml PO DAILY PRN 06/03/20 [History] Mineral Oil/Pet Hy-Phl Oint [Aquaphor Healing Ointment] 1 applic TOP BID 06/03/20 [History] Past Medical History HEENT History: Reports: Allergic Rhinitis, Impaired Vision, Other (See Below) Other HEENT History: seasonal allergies. Cardiovascular History: Reports: Heart Murmur Other Cardiovascular History: open heart surgery age 2, repaired septal defect Respiratory History: Reports: None Gastrointestinal History: Reports: Gastritis, GERD Other Gastrointestinal History: GOUT Genitourinary History: Reports: Urinary Incontinence Musculoskeletal History: Reports: Gout Other Musculoskeletal History: PLANTAR FASCIAL FIBROMATOSIS Neurological History: Reports: Other (See Below) Other Neuro History: DOWN SYNDROME, ADULT FAILURE TO THRIVE SYNDROME, ACUTE ENCEPHALOPATHY. Parents state he has mental capacity of 2year/4month old child Psychiatric History: Reports: Anxiety Other Psychiatric History: DOWN SYNDROME Endocrine/Metabolic History: Reports: Obesity/BMI 30+ Hematologic History: Reports: None Immunologic History: Reports: None Oncologic (Cancer) History: Reports: None Dermatologic History: Reports: Eczema, Other (See Below) Other Dermatologic History: CONTACT DERMATITIS - Infectious Disease History Infectious Disease History: Reports: Chicken Pox - Past Surgical History Head Surgeries/Procedures: Reports: None HEENT Surgical History: Reports: None Cardiovascular Surgical History: Reports: Other (See Below) Other Cardiovascular Surgeries/Procedures: VSD REPAIR 1973 Respiratory Surgical History: Reports: None GI Surgical History: Reports: Appendectomy, Other (See Below) Other GI Surgeries/Procedures: gastroscopy 2015 Male Surgical History: Reports: Circumcision Endocrine Surgical History: Reports: None Neurological Surgical History: Reports: None Musculoskeletal Surgical History: Reports: None, Other (See Below) Other Musculoskeletal Surgeries/Procedures:: much difficult in moving about - legs just not supportive Dermatological Surgical History: Reports: None Social & Family History - Family History Family Medical History: No Pertinent Family History - Tobacco Use Tobacco Use Status *Q: Never Tobacco User - Caffeine Use Caffeine Use: Reports: None - Recreational Drug Use Recreational Drug Use: No H&P Review of Systems - Review of Systems: Review Of Systems: Unable To Obtain Reason Not Obtained: nonverbal, obtunded Exam - Exam Exam: See Below - Vital Signs Vital Signs: Last Vital Signs Temp 98.8 F 06/03/20 12:45 Pulse 74 06/03/20 12:45 Resp 18 06/03/20 12:45 BP 116/60 06/03/20 12:45 Pulse Ox 96 06/03/20 12:45 Weight: 170 lb - Exam Quality Assessment: Supplemental Oxygen General: Obtunded (snoring) HEENT: No: Mucosa Moist & [place] Lungs: Decreased Breath Sounds (bases), Crackles (bibasilar), Other (Snoring upper airway sounds throughout). No: Wheezing Cardiovascular: Regular Rate, Regular Rhythm GI/Abdominal Exam: Soft, No Distention, Guarding, Tender, Abnormal Bowel Sounds (hyperactive). No: Rigid (Male) Exam: Deferred Rectal (Males) Exam: Deferred Extremities: No Pedal Edema, Normal Capillary Refill (bilateral hands), Slow Capillary Refill (bilateral feet), Pallor, Redness (face) Peripheral Pulses: 2+: Radial (L), Radial (R) Skin: Warm (upper extremities, face), Dry, Intact, Cool (feet) - Patient Data Lab Results Last 24 hrs: Laboratory Results - last 24 hr 06/03/20 06/03/20 06/03/20 Range/Units 07:10 07:10 09:04 WBC 19.5 H (3.2-10.1) x10-3/uL RBC 5.75 (3.90-5.90) x10(6)uL Hgb 17.3 (12.9-17.7) g/dL Hct 54.5 H (38.3-50.1) % MCV 94.8 (80.8-98.7) fL MCH 30.0 (27.0-33.3) pg MCHC 31.7 (28.7-35.3) g/dL RDW 16.0 H (12.4-15.0) % Plt Count 329 (117-477) x10(3)uL MPV 8.4 (6.7-11.0) fL Add Manual Diff Yes Neutrophils % (Manual) 80 (46-82) % Band Neutrophils % 2 (0-6) % Lymphocytes % (Manual) 10 L (13-37) % Monocytes % (Manual) 5 (4-12) % Eosinophils % (Manual) 3 (0-5) % Sodium 140 (135-145) mmol/L Potassium 3.9 (3.5-5.3) mmol/L Chloride 100 (100-110) mmol/L Carbon Dioxide 24 (21-32) mmol/L BUN 22 H (7-18) mg/dL Creatinine 1.0 (0.70-1.30) mg/dL Est Cr Clr Drug Dosing TNP Estimated GFR (MDRD) > 60 (>60) BUN/Creatinine Ratio 22.0 H (9-20) Glucose 135 H (80-116) mg/dL Lactic Acid (0.4-2.0) mmol/L Calcium 9.6 (8.6-10.2) mg/dL Total Bilirubin 0.5 (0.1-1.3) mg/dL AST 19 D (5-25) IU/L ALT 7 L D (12-36) U/L Alkaline Phosphatase 163 H (56-112) IU/L Total Protein 8.8 H (6.0-8.0) g/dL Albumin 3.6 (3.5-5.2) g/dL Globulin 5.2 g/dL Albumin/Globulin Ratio 0.7 Amylase (25-115) U/L Lipase (73-393) U/L Urine Color Yellow (YELLOW) Urine Appearance Clear (CLEAR) Urine pH 5.0 (5.0-6.5) Ur Specific [place] 1.030 H (1.010-1.025) Urine Protein Negative (NEGATIVE) mg/dL Urine Glucose (UA) Normal (NORMAL) mg/dL Urine Ketones Negative (NEGATIVE) mg/dL Urine Occult Blood Large H (NEGATIVE) Urine Nitrite Negative (NEGATIVE) Urine Bilirubin Negative (NEGATIVE) Urine Urobilinogen Normal (NEGATIVE) mg/dL Ur Leukocyte Esterase Negative (NEGATIVE) Urine RBC 10-20 H (0-5) Urine WBC 0-5 (0-5) Ur Squamous Epith Cells Occasional (NS,R,O) Urine Bacteria Few H (NS) SARS-CoV-2 RNA (SONAM) (NEGATIVE) 06/03/20 06/03/20 06/03/20 Range/Units 09:50 10:10 10:10 WBC (3.2-10.1) x10-3/uL RBC (3.90-5.90) x10(6)uL Hgb (12.9-17.7) g/dL Hct (38.3-50.1) % MCV (80.8-98.7) fL MCH (27.0-33.3) pg MCHC (28.7-35.3) g/dL RDW (12.4-15.0) % Plt Count (117-477) x10(3)uL MPV (6.7-11.0) fL Add Manual Diff Neutrophils % (Manual) (46-82) % Band Neutrophils % (0-6) % Lymphocytes % (Manual) (13-37) % Monocytes % (Manual) (4-12) % Eosinophils % (Manual) (0-5) % Sodium (135-145) mmol/L Potassium (3.5-5.3) mmol/L Chloride (100-110) mmol/L Carbon Dioxide (21-32) mmol/L BUN (7-18) mg/dL Creatinine (0.70-1.30) mg/dL Est Cr Clr Drug Dosing Estimated GFR (MDRD) (>60) BUN/Creatinine Ratio (9-20) Glucose (80-116) mg/dL Lactic Acid 3.6 H* (0.4-2.0) mmol/L Calcium (8.6-10.2) mg/dL Total Bilirubin (0.1-1.3) mg/dL AST (5-25) IU/L ALT (12-36) U/L Alkaline Phosphatase (56-112) IU/L Total Protein (6.0-8.0) g/dL Albumin (3.5-5.2) g/dL Globulin g/dL Albumin/Globulin Ratio Amylase 67 (25-115) U/L Lipase (73-393) U/L Urine Color (YELLOW) Urine Appearance (CLEAR) Urine pH (5.0-6.5) Ur Specific [place] (1.010-1.025) Urine Protein (NEGATIVE) mg/dL Urine Glucose (UA) (NORMAL) mg/dL Urine Ketones (NEGATIVE) mg/dL Urine Occult Blood (NEGATIVE) Urine Nitrite (NEGATIVE) Urine Bilirubin (NEGATIVE) Urine Urobilinogen (NEGATIVE) mg/dL Ur Leukocyte Esterase (NEGATIVE) Urine RBC (0-5) Urine WBC (0-5) Ur Squamous Epith Cells (NS,R,O) Urine Bacteria (NS) SARS-CoV-2 RNA (SONAM) Negative (NEGATIVE) 06/03/20 Range/Units 10:10 WBC (3.2-10.1) x10-3/uL RBC (3.90-5.90) x10(6)uL Hgb (12.9-17.7) g/dL Hct (38.3-50.1) % MCV (80.8-98.7) fL MCH (27.0-33.3) pg MCHC (28.7-35.3) g/dL RDW (12.4-15.0) % Plt Count (117-477) x10(3)uL MPV (6.7-11.0) fL Add Manual Diff Neutrophils % (Manual) (46-82) % Band Neutrophils % (0-6) % Lymphocytes % (Manual) (13-37) % Monocytes % (Manual) (4-12) % Eosinophils % (Manual) (0-5) % Sodium (135-145) mmol/L Potassium (3.5-5.3) mmol/L Chloride (100-110) mmol/L Carbon Dioxide (21-32) mmol/L BUN (7-18) mg/dL Creatinine (0.70-1.30) mg/dL Est Cr Clr Drug Dosing Estimated GFR (MDRD) (>60) BUN/Creatinine Ratio (9-20) Glucose (80-116) mg/dL Lactic Acid (0.4-2.0) mmol/L Calcium (8.6-10.2) mg/dL Total Bilirubin (0.1-1.3) mg/dL AST (5-25) IU/L ALT (12-36) U/L Alkaline Phosphatase (56-112) IU/L Total Protein (6.0-8.0) g/dL Albumin (3.5-5.2) g/dL Globulin g/dL Albumin/Globulin Ratio Amylase (25-115) U/L Lipase 103 (73-393) U/L Urine Color (YELLOW) Urine Appearance (CLEAR) Urine pH (5.0-6.5) Ur Specific [place] (1.010-1.025) Urine Protein (NEGATIVE) mg/dL Urine Glucose (UA) (NORMAL) mg/dL Urine Ketones (NEGATIVE) mg/dL Urine Occult Blood (NEGATIVE) Urine Nitrite (NEGATIVE) Urine Bilirubin (NEGATIVE) Urine Urobilinogen (NEGATIVE) mg/dL Ur Leukocyte Esterase (NEGATIVE) Urine RBC (0-5) Urine WBC (0-5) Ur Squamous Epith Cells (NS,R,O) Urine Bacteria (NS) SARS-CoV-2 RNA (SONAM) (NEGATIVE) Result Diagrams: 06/03/20 07:10 06/03/20 07:10 Sepsis Event Note - Evaluation Sepsis Screening Result: No Definite Risk Current Stage of Sepsis: Sepsis - Focused Exam Sepsis Event Note Statement: Focused Sepsis Exam Completed Vital Signs: Vital Signs Temp Pulse Resp BP Pulse Ox 06/03/20 12:45 98.8 F 74 18 116/60 96 06/03/20 11:48 99.3 F 73 18 114/57 L 96 06/03/20 07:25 98.4 F 69 18 93/60 87 L 06/03/20 06:33 98.1 F 91 18 86/61 L 91 L Respiratory Effort Without Exertion: Snoring Heart Sounds: Distant Pulse Description: 2+ Normal Peripheral Pulse Location: Radial Skin Exam (Focused Sepsis): Flushed Date Exam was Performed: 06/03/20 Time Exam was Performed: 13:50 *Q Meaningful Use (ADM) - VTE Risk Assess *Q Each Risk Factor Represents 1 Point: Age 41 - 59 years, Sepsis, Serious lung disease including pneumonia Total Score 1 Point Risk Factors: 3 Each Risk Factor Represents 2 Points: Patient confined to bed greater than 72 hours Total Score 2 Point Risk Factors: 2 Each Risk Factor Represents 3 Points: None Total Score 3 Point Risk Factors: 0 Each Risk Factor Represents 5 Points: None Total Score 5 Point Risk Factors: 0 Venous Thromboembolism Risk Factor Score *Q: 5 - Problem List (1) Sepsis SNOMED Code(s): 13634134 ICD Code: A41.9 - SEPSIS, UNSPECIFIED ORGANISM Status: Acute Current Visit: Yes Qualifiers: Severe sepsis shock status: without septic shock (2) Aspiration pneumonia SNOMED Code(s): 927035726 ICD Code: J69.0 - PNEUMONITIS DUE TO INHALATION OF FOOD AND VOMIT Status: Acute Current Visit: No Qualifiers: Laterality: bilateral Lung location: lower lobe of lung (3) Nausea & vomiting SNOMED Code(s): 06363377 ICD Code: R11.2 - NAUSEA WITH VOMITING, UNSPECIFIED Status: Acute Current Visit: Yes (4) Diarrhea SNOMED Code(s): 11274188 ICD Code: R19.7 - DIARRHEA, UNSPECIFIED Status: Acute Current Visit: Yes (5) Down's syndrome SNOMED Code(s): 32764937 ICD Code: Q90.9 - DOWN SYNDROME, UNSPECIFIED Status: Chronic Current Visit: No (6) Gout SNOMED Code(s): 53078184 ICD Code: M10.9 - GOUT, UNSPECIFIED Status: Chronic Current Visit: No Qualifiers: Gout site: ankle (7) Palliative care status SNOMED Code(s): 312446405 ICD Code: Z51.5 - ENCOUNTER FOR PALLIATIVE CARE Status: Acute Current Visit: Yes Problem List Initiated/Reviewed/Updated: Yes Orders Last 24hrs: Active Orders 24 hr Category Date Time Status Patient Status [ADT] Routine ADT 06/03/20 13:36 Active Antiembolic Devices [RC] .Routine Care 06/03/20 13:36 Active Oxygen Therapy [RC] PRN Care 06/03/20 13:36 Active Up With Assistance [RC] ASDIRECTED Care 06/03/20 13:36 Active Up to Chair [RC] ASDIRECTED Care 06/03/20 13:36 Active VTE/DVT Education [RC] Per Unit Routine Care 06/03/20 13:36 Active Vital Signs [RC] Q4H Care 06/03/20 13:36 Active Clear Liquid Diet [DIET] Diet 06/03/20 Dinner Active C DIFFICILE AG/TOXIN W/REFLEX [RM] Stat Lab 12/17/20 10:25 Received CBC WITH AUTO DIFF [HEME] Routine Lab 06/04/20 06:00 Ordered COMPREHENSIVE METABOLIC PN,CMP [CHEM] Routine Lab 06/04/20 06:00 Ordered CULTURE BLOOD [BC] Urgent Lab 06/03/20 10:10 Received CULTURE BLOOD [BC] Urgent Lab 06/03/20 10:20 Received INFLUENZA A+B AG SCREEN [RM] Stat Lab 06/03/20 10:03 Received LACTIC ACID [CHEM] Stat Lab 06/03/20 13:45 Received Enoxaparin [Lovenox] Med 06/03/20 14:00 Active 40 mg SUBCUT Q24H Piperacillin/Tazobactam [Zosyn] 4.5 gm Med 06/03/20 20:00 Active Sodium Chloride 0.9% [Normal Saline] 100 ml IV Q6H Sodium Chloride 0.9% [Normal Saline] 1,000 ml Med 06/03/20 06:45 Active IV ASDIRECTED Sodium Chloride 0.9% [Saline Flush] Med 06/03/20 06:45 Active 10 ml FLUSH ASDIRECTED PRN Antiembolic Hose [OM.PC] Per Unit Routine Oth 06/03/20 13:38 Ordered Blood Culture x2 Reflex Set [OM.PC] Urgent Oth 06/03/20 09:40 Ordered Isolation [COMM] Routine Oth 06/03/20 12:26 Ordered Peripheral IV Insertion Adult [OM.PC] Routine Oth 06/03/20 06:45 Ordered Code Status [Resuscitation Status] Routine Resus Stat 06/03/20 13:51 Ordered Medication Orders Enoxaparin Sodium (Lovenox) 40 mg SUBCUT Q24H THOR Sodium Chloride (Normal Saline) 1,000 mls @ 999 mls/hr IV ASDIRECTED THOR Last Admin: 06/03/20 07:45 Dose: 999 mls/hr Documented by: JOHAN Piperacillin Sod/Tazobactam (Sod 4.5 gm/ Sodium Chloride) 100 mls @ 200 mls/hr IV Q6H THOR Sodium Chloride (Saline Flush) 10 ml FLUSH ASDIRECTED PRN PRN Reason: Keep Vein Open Last Admin: 06/03/20 07:45 Dose: 10 ml Documented by: JOHAN Assessment/Plan Comment:: 1. Admit for sepsis, aspiration pneumonia, nausea, vomiting, diarrhea, dehydration. 2. Sepsis/Pneumonia: continue Zosyn 4.5 IV q6h, Lactic acid pending. IVF 1 Liter bolus still running, will continue at 125 ml/hr once bolus in. Repeat CBC & BMP tomorrow. Covid negative. Influenza pending. 3. Diet: clears if patient more alert. 4. DVT: TEDs BLE, Lovenox 40 mg SQ daily. 5. CODE STATUS: DNR/DNI. - Mortality Measure Prognosis:: Poor
[2020-06-03] MEDS ORDERED: Acetaminophen 325 MG Tab PO PRN (14:14)
[2020-06-03] MEDS ORDERED: Bisacodyl 10 MG Supp RECTAL PRN (14:14)
[2020-06-03] MEDS ORDERED: Magnesium Hydroxide 400 MG/5 ML Susp 30 ML Cup PO PRN (14:14)
[2020-06-03] MEDS ORDERED: Albuterol/Ipratropium 3.0-0.5 MG/3 ML Neb Soln NEB PRN (14:14)
[2020-06-03] MEDS ORDERED: Mineral Oil/Petrolatum,Hydrophilic Ointment 100 GM Jar TOP PRN (14:41)
[2020-06-03] MEDS: Mineral Oil/Petrolatum,Hydrophilic Ointment 100 GM Jar TOP SCH ×2 (16:24→22:56)
[2020-06-03] MEDS: Enoxaparin 40 MG/0.4 ML Syringe SUBCUT SCH (16:25)
[2020-06-03] MEDS: PETROLATUM TOP SCH (20:14)
[2020-06-03] MEDS: MINERAL OIL TOP SCH (20:14)
[2020-06-03] MEDS: Eyelid Cleanser Pads, 30 per Box TP SCH (20:15)
[2020-06-03] MEDS: Albuterol/Ipratropium 3.0-0.5 MG/3 ML Neb Soln NEB SCH (20:15)
[2020-06-03] MEDS: Piperacillin/Tazobactam 4.5 GM in Sodium Chloride 0.9% 100 ML IV SCH (20:17)
[2020-06-03] MEDS ORDERED: Sodium Bicarbonate 8.4% 50 MEQ/50 ML Syringe IVPUSH ONE (21:33)
[2020-06-04] MEDS: Piperacillin/Tazobactam 4.5 GM in Sodium Chloride 0.9% 100 ML IV SCH ×4 (02:56→20:00)
[2020-06-04] MEDS: Pantoprazole 40 MG Tab.CR PO SCH (05:19)
[2020-06-04] MEDS: Sodium Chloride 0.9% 1,000 ML IV SCH (05:19)
--- NOTE | 2020-06-04 08:20 | PCM.PN ---
- General Info Date of Service: 06/04/20 Subjective Update: Sebastien is stable.Overnight still had low grade temp. Blood cultures growing unidentified organism Functional Status: Denies: New Symptoms - Review of Systems General: Reports: No Symptoms Pulmonary: Reports: Cough Cardiovascular: Reports: No Symptoms Gastrointestinal: Reports: No Symptoms Genitourinary: Reports: No Symptoms Musculoskeletal: Reports: No Symptoms Skin: Reports: No Symptoms Neurological: Reports: No Symptoms Psychiatric: Reports: No Symptoms - Patient Data Vitals - Most Recent: Last Vital Signs Temp 99.6 F 06/04/20 04:00 Pulse 97 06/04/20 04:00 Resp 20 06/04/20 04:00 BP 104/58 L 06/04/20 04:00 Pulse Ox 93 L 06/04/20 04:00 Weight - Most Recent: 75.432 kg I&O - Last 24 Hours: Intake & Output 06/03/20 06/04/20 06/04/20 22:59 06:59 14:59 Intake Total 1393 Balance 1393 Lab Results Last 24 Hours: Laboratory Results - last 24 hr 06/03/20 06/03/20 06/03/20 Range/Units 09:04 09:50 10:10 WBC (3.2-10.1) x10-3/uL RBC (3.90-5.90) x10(6)uL Hgb (12.9-17.7) g/dL Hct (38.3-50.1) % MCV (80.8-98.7) fL MCH (27.0-33.3) pg MCHC (28.7-35.3) g/dL RDW (12.4-15.0) % Plt Count (117-477) x10(3)uL MPV (6.7-11.0) fL Add Manual Diff Neutrophils % (Manual) (46-82) % Band Neutrophils % (0-6) % Lymphocytes % (Manual) (13-37) % Monocytes % (Manual) (4-12) % Sodium (135-145) mmol/L Potassium (3.5-5.3) mmol/L Chloride (100-110) mmol/L Carbon Dioxide (21-32) mmol/L BUN (7-18) mg/dL Creatinine (0.70-1.30) mg/dL Est Cr Clr Drug Dosing mL/min Estimated GFR (MDRD) (>60) BUN/Creatinine Ratio (9-20) Glucose (80-116) mg/dL Lactic Acid 3.6 H* (0.4-2.0) mmol/L Calcium (8.6-10.2) mg/dL Total Bilirubin (0.1-1.3) mg/dL AST (5-25) IU/L ALT (12-36) U/L Alkaline Phosphatase (56-112) IU/L Total Protein (6.0-8.0) g/dL Albumin (3.5-5.2) g/dL Globulin g/dL Albumin/Globulin Ratio Amylase (25-115) U/L Lipase (73-393) U/L Urine Color Yellow (YELLOW) Urine Appearance Clear (CLEAR) Urine pH 5.0 (5.0-6.5) Ur Specific [place] 1.030 H (1.010-1.025) Urine Protein Negative (NEGATIVE) mg/dL Urine Glucose (UA) Normal (NORMAL) mg/dL Urine Ketones Negative (NEGATIVE) mg/dL Urine Occult Blood Large H (NEGATIVE) Urine Nitrite Negative (NEGATIVE) Urine Bilirubin Negative (NEGATIVE) Urine Urobilinogen Normal (NEGATIVE) mg/dL Ur Leukocyte Esterase Negative (NEGATIVE) Urine RBC 10-20 H (0-5) Urine WBC 0-5 (0-5) Ur Squamous Epith Cells Occasional (NS,R,O) Urine Bacteria Few H (NS) SARS-CoV-2 RNA (SONAM) Negative (NEGATIVE) 06/03/20 06/03/20 06/03/20 Range/Units 10:10 10:10 13:45 WBC (3.2-10.1) x10-3/uL RBC (3.90-5.90) x10(6)uL Hgb (12.9-17.7) g/dL Hct (38.3-50.1) % MCV (80.8-98.7) fL MCH (27.0-33.3) pg MCHC (28.7-35.3) g/dL RDW (12.4-15.0) % Plt Count (117-477) x10(3)uL MPV (6.7-11.0) fL Add Manual Diff Neutrophils % (Manual) (46-82) % Band Neutrophils % (0-6) % Lymphocytes % (Manual) (13-37) % Monocytes % (Manual) (4-12) % Sodium (135-145) mmol/L Potassium (3.5-5.3) mmol/L Chloride (100-110) mmol/L Carbon Dioxide (21-32) mmol/L BUN (7-18) mg/dL Creatinine (0.70-1.30) mg/dL Est Cr Clr Drug Dosing mL/min Estimated GFR (MDRD) (>60) BUN/Creatinine Ratio (9-20) Glucose (80-116) mg/dL Lactic Acid 2.6 H* (0.4-2.0) mmol/L Calcium (8.6-10.2) mg/dL Total Bilirubin (0.1-1.3) mg/dL AST (5-25) IU/L ALT (12-36) U/L Alkaline Phosphatase (56-112) IU/L Total Protein (6.0-8.0) g/dL Albumin (3.5-5.2) g/dL Globulin g/dL Albumin/Globulin Ratio Amylase 67 (25-115) U/L Lipase 103 (73-393) U/L Urine Color (YELLOW) Urine Appearance (CLEAR) Urine pH (5.0-6.5) Ur Specific [place] (1.010-1.025) Urine Protein (NEGATIVE) mg/dL Urine Glucose (UA) (NORMAL) mg/dL Urine Ketones (NEGATIVE) mg/dL Urine Occult Blood (NEGATIVE) Urine Nitrite (NEGATIVE) Urine Bilirubin (NEGATIVE) Urine Urobilinogen (NEGATIVE) mg/dL Ur Leukocyte Esterase (NEGATIVE) Urine RBC (0-5) Urine WBC (0-5) Ur Squamous Epith Cells (NS,R,O) Urine Bacteria (NS) SARS-CoV-2 RNA (SONAM) (NEGATIVE) 06/03/20 06/04/20 06/04/20 Range/Units 17:10 06:50 06:50 WBC 19.1 H (3.2-10.1) x10-3/uL RBC 4.35 (3.90-5.90) x10(6)uL Hgb 13.1 D (12.9-17.7) g/dL Hct 41.2 D (38.3-50.1) % MCV 94.7 (80.8-98.7) fL MCH 30.1 (27.0-33.3) pg MCHC 31.8 (28.7-35.3) g/dL RDW 15.8 H (12.4-15.0) % Plt Count 268 (117-477) x10(3)uL MPV 8.5 (6.7-11.0) fL Add Manual Diff Yes Neutrophils % (Manual) 85 H (46-82) % Band Neutrophils % 1 (0-6) % Lymphocytes % (Manual) 11 L (13-37) % Monocytes % (Manual) 3 L (4-12) % Sodium 147 H (135-145) mmol/L Potassium 3.5 (3.5-5.3) mmol/L Chloride 109 D (100-110) mmol/L Carbon Dioxide 28 (21-32) mmol/L BUN 18 (7-18) mg/dL Creatinine 1.0 (0.70-1.30) mg/dL Est Cr Clr Drug Dosing 63.19 mL/min Estimated GFR (MDRD) > 60 (>60) BUN/Creatinine Ratio 18.0 (9-20) Glucose 110 (80-116) mg/dL Lactic Acid 2.4 H* (0.4-2.0) mmol/L Calcium 8.1 L (8.6-10.2) mg/dL Total Bilirubin 0.5 (0.1-1.3) mg/dL AST 14 D (5-25) IU/L ALT 15 D (12-36) U/L Alkaline Phosphatase 100 (56-112) IU/L Total Protein 6.7 (6.0-8.0) g/dL Albumin 2.6 L (3.5-5.2) g/dL Globulin 4.1 g/dL Albumin/Globulin Ratio 0.6 Amylase (25-115) U/L Lipase (73-393) U/L Urine Color (YELLOW) Urine Appearance (CLEAR) Urine pH (5.0-6.5) Ur Specific [place] (1.010-1.025) Urine Protein (NEGATIVE) mg/dL Urine Glucose (UA) (NORMAL) mg/dL Urine Ketones (NEGATIVE) mg/dL Urine Occult Blood (NEGATIVE) Urine Nitrite (NEGATIVE) Urine Bilirubin (NEGATIVE) Urine Urobilinogen (NEGATIVE) mg/dL Ur Leukocyte Esterase (NEGATIVE) Urine RBC (0-5) Urine WBC (0-5) Ur Squamous Epith Cells (NS,R,O) Urine Bacteria (NS) SARS-CoV-2 RNA (SONAM) (NEGATIVE) 06/04/20 Range/Units 06:50 WBC (3.2-10.1) x10-3/uL RBC (3.90-5.90) x10(6)uL Hgb (12.9-17.7) g/dL Hct (38.3-50.1) % MCV (80.8-98.7) fL MCH (27.0-33.3) pg MCHC (28.7-35.3) g/dL RDW (12.4-15.0) % Plt Count (117-477) x10(3)uL MPV (6.7-11.0) fL Add Manual Diff Neutrophils % (Manual) (46-82) % Band Neutrophils % (0-6) % Lymphocytes % (Manual) (13-37) % Monocytes % (Manual) (4-12) % Sodium (135-145) mmol/L Potassium (3.5-5.3) mmol/L Chloride (100-110) mmol/L Carbon Dioxide (21-32) mmol/L BUN (7-18) mg/dL Creatinine (0.70-1.30) mg/dL Est Cr Clr Drug Dosing mL/min Estimated GFR (MDRD) (>60) BUN/Creatinine Ratio (9-20) Glucose (80-116) mg/dL Lactic Acid 0.8 (0.4-2.0) mmol/L Calcium (8.6-10.2) mg/dL Total Bilirubin (0.1-1.3) mg/dL AST (5-25) IU/L ALT (12-36) U/L Alkaline Phosphatase (56-112) IU/L Total Protein (6.0-8.0) g/dL Albumin (3.5-5.2) g/dL Globulin g/dL Albumin/Globulin Ratio Amylase (25-115) U/L Lipase (73-393) U/L Urine Color (YELLOW) Urine Appearance (CLEAR) Urine pH (5.0-6.5) Ur Specific [place] (1.010-1.025) Urine Protein (NEGATIVE) mg/dL Urine Glucose (UA) (NORMAL) mg/dL Urine Ketones (NEGATIVE) mg/dL Urine Occult Blood (NEGATIVE) Urine Nitrite (NEGATIVE) Urine Bilirubin (NEGATIVE) Urine Urobilinogen (NEGATIVE) mg/dL Ur Leukocyte Esterase (NEGATIVE) Urine RBC (0-5) Urine WBC (0-5) Ur Squamous Epith Cells (NS,R,O) Urine Bacteria (NS) SARS-CoV-2 RNA (SONAM) (NEGATIVE) Willie Results Last 24 Hours: Microbiology 06/03/20 10:20 Anaerobic Blood Culture - Final Blood - Venous - Lab Draw 06/03/20 10:10 Aerobic Blood Culture - Preliminary Blood - Venous Unidentified Organism Anaerobic Blood Culture - Final 06/03/20 10:25 C. difficile Antigen & Toxins A,B - Final Stool / Feces 06/03/20 10:03 Influenza Type A Antigen Screen - Final Nasopharyngeal Swab - Nare, Left NEGATIVE INFLUENZA A VIRUS AG REFERENCE RANGE: NEGATIVE Influenza Type B Antigen Screen - Final NEGATIVE INFLUENZA B VIRUS AG REFERENCE RANGE: NEGATIVE Med Orders - Current: Current Medications Acetaminophen (Tylenol) 650 mg PO Q4H PRN PRN Reason: Pain/Fever Last Admin: 06/04/20 00:05 Dose: 650 mg Documented by: Albuterol/Ipratropium (Duoneb 3.0-0.5 Mg/3 Ml) 3 ml NEB BID [facility] Last Admin: 06/03/20 20:15 Dose: 3 ml Documented by: Albuterol/Ipratropium (Duoneb 3.0-0.5 Mg/3 Ml) 3 ml NEB Q4H PRN PRN Reason: CONGESTION/DYSPNEA Last Admin: 06/04/20 00:05 Dose: 3 ml Documented by: Bisacodyl (Dulcolax) 10 mg RECTAL Q72H PRN PRN Reason: Constipation Divalproex Sodium (Depakote Sprinkle) 125 mg PO DAILY@1200 THOR Donepezil HCl (Aricept) 10 mg PO DAILY [facility] Enoxaparin Sodium (Lovenox) 40 mg SUBCUT Q24H [facility] Last Admin: 06/03/20 16:25 Dose: 40 mg Documented by: Eye Cleanser (Ocusoft Lid Scrub Plus) 1 pad TP BID [facility] Last Admin: 06/03/20 20:15 Dose: 1 pad Documented by: Sodium Chloride (Normal Saline) 1,000 mls @ 999 mls/hr IV ASDIRECTED [facility] Last Infusion: 06/03/20 08:46 Dose: Infused Documented by: Piperacillin Sod/Tazobactam (Sod 4.5 gm/ Sodium Chloride) 100 mls @ 200 mls/hr IV Q6H [facility] Last Admin: 06/04/20 02:56 Dose: 200 mls/hr Documented by: Sodium Chloride (Normal Saline) 1,000 mls @ 125 mls/hr IV ASDIRECTED [facility] Last Admin: 06/04/20 05:19 Dose: 125 mls/hr Documented by: Loperamide HCl (Imodium) 2 mg PO ASDIRECTED PRN PRN Reason: DIARRHEA Loratadine (Claritin) 10 mg PO DAILY [facility] Magnesium Hydroxide (Milk Of Magnesia) 30 ml PO DAILY PRN PRN Reason: Constipation Mineral Oil/White Petrolatum (Absorbase Ointment) 0 gm TOP BID [facility] Last Admin: 06/03/20 20:14 Dose: 114 gm Documented by: Mineral Oil/White Petrolatum (Hydrophor Oint) 1 gm TOP TID [facility] Last Admin: 06/03/20 22:56 Dose: 1 applic Documented by: Mineral Oil/White Petrolatum (Hydrophor Oint) 0 gm TOP ASDIRECTED PRN PRN Reason: EVERY CHECK Last Admin: 06/03/20 20:15 Dose: 100 gm Documented by: Pantoprazole Sodium (Protonix) 40 mg PO DAILY@0600 [facility] Last Admin: 06/04/20 05:19 Dose: 40 mg Documented by: Sodium Chloride (Saline Flush) 10 ml FLUSH ASDIRECTED PRN PRN Reason: Keep Vein Open Last Admin: 06/03/20 07:45 Dose: 10 ml Documented by: Discontinued Medications Acetaminophen (Tylenol) 1,000 mg PO ONETIME ONE Stop: 06/03/20 12:53 Last Admin: 06/03/20 13:16 Dose: 1,000 mg Documented by: Piperacillin Sod/Tazobactam (Sod 4.5 gm/ Sodium Chloride) 100 mls @ 200 mls/hr IV Q6H [facility] Last Admin: 06/03/20 12:57 Dose: 200 mls/hr Documented by: Iopamidol (Isovue-370 (76%)) 100 ml IV . DIRECTED ONE Stop: 06/03/20 10:45 Last Admin: 12/17/20 10:55 Dose: 100 ml Documented by: Ondansetron HCl (Zofran) 4 mg IVPUSH ONETIME ONE Stop: 06/03/20 08:11 Last Admin: 06/03/20 08:26 Dose: 4 mg Documented by: Sodium Bicarbonate (Sodium Bicarbonate 8.4%) 50 meq IVPUSH ONETIME ONE Stop: 06/03/20 21:34 Last Admin: 06/03/20 22:49 Dose: 50 meq Documented by: - Exam General: Alert HEENT: Pupils Equal Neck: Supple Lungs: Rales Cardiovascular: Regular Rate, Regular Rhythm GI/Abdominal Exam: Normal Bowel Sounds, Soft (Male) Exam: Deferred Extremities: Normal Inspection Skin: Warm, Intact Wound/Incisions: Healing Well Neurological: No New Focal Deficit Psy/Mental Status: Alert, Normal Affect Sepsis Event Note - Evaluation Sepsis Screening Result: Severe Sepsis Risk - Focused Exam Vital Signs: Vital Signs Temp Pulse Resp BP Pulse Ox 06/04/20 04:00 99.6 F 97 20 104/58 L 93 L 06/04/20 02:37 100.2 F 102 H 20 92/52 L 96 06/04/20 00:15 103 H 06/04/20 00:06 100.9 F H 106 H 16 93 L 06/04/20 00:05 106 H 06/03/20 21:00 98.8 F 101 H 18 119/71 93 L - Problem List & Annotations (1) Aspiration pneumonia SNOMED Code(s): 044374678 Code(s): J69.0 - PNEUMONITIS DUE TO INHALATION OF FOOD AND VOMIT Status: Acute Current Visit: No Qualifiers: Laterality: bilateral Lung location: lower lobe of lung (2) Sepsis SNOMED Code(s): 46294577 Code(s): A41.9 - SEPSIS, UNSPECIFIED ORGANISM Status: Acute Current Visit: Yes Qualifiers: Sepsis type: sepsis due to unspecified organism (3) Bacteremia SNOMED Code(s): 5750726 Code(s): R78.81 - BACTEREMIA Status: Acute Current Visit: Yes (4) Nausea & vomiting SNOMED Code(s): 17392730 Code(s): R11.2 - NAUSEA WITH VOMITING, UNSPECIFIED Status: Acute Current Visit: Yes Qualifiers: Vomiting type: unspecified (5) Down's syndrome SNOMED Code(s): 96756929 Code(s): Q90.9 - DOWN SYNDROME, UNSPECIFIED Status: Chronic Current Visit: No - Problem List Review Problem List Initiated/Reviewed/Updated: Yes - My Orders Last 24 Hours: My Active Orders 06/04/20 09:00 Vancomycin 1 gm Sodium Chloride 0.9% [Normal Saline] 250 ml IV Q12H - Plan Plan:: I will add Vancomycin as we wait for ID of the organism.
[2020-06-04] MEDS: Mineral Oil/Petrolatum,Hydrophilic Ointment 100 GM Jar TOP SCH ×3 (09:02→21:31)
[2020-06-04] MEDS: PETROLATUM TOP SCH ×2 (09:03→21:30)
[2020-06-04] MEDS: MINERAL OIL TOP SCH ×2 (09:03→21:30)
[2020-06-04] MEDS: Loratadine 10 MG Tab PO SCH (09:04)
[2020-06-04] MEDS: Donepezil 10 MG Tab PO SCH (09:04)
[2020-06-04] MEDS: Albuterol/Ipratropium 3.0-0.5 MG/3 ML Neb Soln NEB SCH ×2 (09:05→21:29)
[2020-06-04] MEDS: Eyelid Cleanser Pads, 30 per Box TP SCH ×2 (09:05→21:29)
[2020-06-04] MEDS: Vancomycin/Dextrose 5%-Water 200 ML IV SCH ×3 (09:50→21:30)
[2020-06-04] MEDS: Divalproex Sodium Delayed-Release 125 MG Cap.Sprink PO SCH (11:42)
[2020-06-04] MEDS: Enoxaparin 40 MG/0.4 ML Syringe SUBCUT SCH (14:11)
[2020-06-04] MEDS: Sodium Chloride 0.45% 1,000 ML IV SCH (16:10)
--- NOTE | 2020-06-04 19:42 | EDM.PDOC ---
ED HPI GENERAL MEDICAL PROBLEM - General Chief Complaint: Gastrointestinal Problem Time Seen by Provider: 06/03/20 07:00 Source of Information: Reports: Patient, Provider History Limitations: Reports: No Limitations, Physical Impairment (nonverbal, Downs syndrome) - History of Present Illness INITIAL COMMENTS - FREE TEXT/NARRATIVE: Patient presented to the ED from the [facility] due to N/V/D for 2 days. While being triaged he was found to be hypotensive, lethargic, and hypoxemic. Fluid resuscitation was done with NS and his BP did improved. He was started on Zosyn right away pending CXR and abd CT results. - Related Data Allergies Allergy/AdvReac Type Severity Reaction Status Date / Time sulfamethoxazole Allergy Hives Verified 04/01/20 14:22 [From Bactrim] trimethoprim [From Bactrim] Allergy Hives Verified 04/01/20 14:22 seasonal Allergy Cough Uncoded 04/01/20 14:22 Home Meds: Home Meds allopurinoL [Zyloprim] 100 mg PO DAILY 12/15/17 [History] Donepezil HCl [Aricept] 10 mg PO DAILY 01/30/19 [History] Lanolin/Mineral Oil [Eucerin Original Lotion] 1 applic TP BID 01/30/19 [History] Loperamide HCl [Diamode] 2 mg PO ASDIRECTED 01/30/19 [History] Loratadine [Claritin] 10 mg PO DAILY 01/30/19 [History] Omeprazole Magnesium 20 mg PO DAILY 01/30/19 [History] Acetaminophen [Acetaminophen Extra Strength] 1,000 mg PO BID 02/16/20 [History] Sennosides/Docusate Sodium [Senna-S] 1 tab PO BID 02/16/20 [History] Divalproex Sodium [Depakote Sprinkle] 125 mg PO DAILY@1200 02/17/20 [History] Bisacodyl [Gentle Laxative] 10 mg RECTAL Q72H PRN 02/20/20 [History] Eye Scrub- 1/2 Strength Baby Shampoo 1 applic EYEBOTH BID 02/20/20 [History] guaiFENesin 10 ml PO Q4H PRN 02/20/20 [History] Acetaminophen [Tylenol] 650 mg PO Q4H PRN 06/03/20 [History] Albuterol/Ipratropium [DuoNeb 3.0-0.5 MG/3 ML] 3 ml IH BID 06/03/20 [History] Albuterol/Ipratropium [DuoNeb 3.0-0.5 MG/3 ML] 3 ml IH Q4H PRN 06/03/20 [History] Magnesium Hydroxide [Milk of Magnesia] 30 ml PO DAILY PRN 06/03/20 [History] Mineral Oil/Pet Hy-Phl Oint [Aquaphor Healing Ointment] 1 applic TOP ASDIRECTED 06/03/20 [History] Past Medical History HEENT History: Reports: Allergic Rhinitis, Impaired Vision, Other (See Below) Other HEENT History: seasonal allergies. Cardiovascular History: Reports: Heart Murmur Other Cardiovascular History: open heart surgery age 2, repaired septal defect Respiratory History: Reports: None Gastrointestinal History: Reports: Gastritis, GERD Other Gastrointestinal History: GOUT Genitourinary History: Reports: Urinary Incontinence Musculoskeletal History: Reports: Gout Other Musculoskeletal History: PLANTAR FASCIAL FIBROMATOSIS Neurological History: Reports: Other (See Below) Other Neuro History: DOWN SYNDROME, ADULT FAILURE TO THRIVE SYNDROME, ACUTE ENCEPHALOPATHY. Parents state he has mental capacity of 2year/4month old child Psychiatric History: Reports: Anxiety Other Psychiatric History: DOWN SYNDROME Endocrine/Metabolic History: Reports: Obesity/BMI 30+ Hematologic History: Reports: None Immunologic History: Reports: None Oncologic (Cancer) History: Reports: None Dermatologic History: Reports: Eczema, Other (See Below) Other Dermatologic History: CONTACT DERMATITIS - Infectious Disease History Infectious Disease History: Reports: Chicken Pox - Past Surgical History Head Surgeries/Procedures: Reports: None HEENT Surgical History: Reports: None Cardiovascular Surgical History: Reports: Other (See Below) Other Cardiovascular Surgeries/Procedures: VSD REPAIR 1972 Respiratory Surgical History: Reports: None GI Surgical History: Reports: Appendectomy, Other (See Below) Other GI Surgeries/Procedures: gastroscopy 2015 Male Surgical History: Reports: Circumcision Endocrine Surgical History: Reports: None Neurological Surgical History: Reports: None Musculoskeletal Surgical History: Reports: None, Other (See Below) Other Musculoskeletal Surgeries/Procedures:: much difficult in moving about - legs just not supportive Dermatological Surgical History: Reports: None Social & Family History - Family History Family Medical History: No Pertinent Family History - Tobacco Use Tobacco Use Status *Q: Never Tobacco User Second Hand Smoke Exposure: No - Caffeine Use Caffeine Use: Reports: None - Recreational Drug Use Recreational Drug Use: No ED ROS GENERAL - Review of Systems Review Of Systems: See Below Constitutional: Reports: No Symptoms HEENT: Reports: No Symptoms Respiratory: Reports: Cough Cardiovascular: Reports: No Symptoms Endocrine: Reports: No Symptoms GI/Abdominal: Reports: Diarrhea, Nausea, Vomiting : Reports: No Symptoms Musculoskeletal: Reports: No Symptoms, Neck Pain, Shoulder Pain, Arm Pain, Back Pain Skin: Reports: No Symptoms Neurological: Reports: No Symptoms, Confusion Psychiatric: Reports: No Symptoms Hematologic/Lymphatic: Reports: No Symptoms Immunologic: Reports: No Symptoms ED EXAM, GI/ABD - Physical Exam Exam: See Below Exam Limited By: No Limitations General Appearance: Alert, No Apparent Distress Ears: Normal External Exam, Normal Canal Nose: Normal Inspection, Normal Mucosa, No Blood Throat/Mouth: Normal Inspection, Normal Lips, Normal Teeth Head: Atraumatic, Normocephalic Neck: Normal Inspection, Supple, Non-Tender, Full Range of Motion Respiratory/Chest: No Respiratory Distress, Lungs Clear, Decreased Breath Sounds, Crackles Cardiovascular: Normal Peripheral Pulses, Regular Rate, Rhythm, No Edema GI/Abdominal Exam: Normal Bowel Sounds, Soft, Non-Tender, Other (hyperactive bowel sound) Back Exam: Normal Inspection Extremities: Normal Inspection Neurological: Alert, Oriented, CN II-XII Intact, Normal Cognition, Normal Gait Course - Vital Signs Text/Narrative:: Labs/CXR/Abd-pelvis result was discussed with his mom as well as the plan of care NS 1 L bolus Zosyn 7.75 gm IV Zofran 4 mg IV x1 Last Recorded V/S: Last Vital Signs Temp 36.8 C 06/04/20 16:00 Pulse 87 06/04/20 16:00 Resp 18 06/04/20 16:00 BP 103/64 06/04/20 16:00 Pulse Ox 96 06/04/20 16:00 - Orders/Labs/Meds Orders: Medication Orders Acetaminophen (Tylenol) 650 mg PO Q4H PRN PRN Reason: Pain/Fever Last Admin: 06/04/20 00:05 Dose: 650 mg Documented by: JUNIOR Albuterol/Ipratropium (Duoneb 3.0-0.5 Mg/3 Ml) 3 ml NEB BID THOR Last Admin: 06/04/20 09:05 Dose: 3 ml Documented by: Admin: 06/03/20 20:15 Dose: 3 ml Documented by: JUNIOR Albuterol/Ipratropium (Duoneb 3.0-0.5 Mg/3 Ml) 3 ml NEB Q4H PRN PRN Reason: CONGESTION/DYSPNEA Last Admin: 06/04/20 00:05 Dose: 3 ml Documented by: JUNIOR Bisacodyl (Dulcolax) 10 mg RECTAL Q72H PRN PRN Reason: Constipation Divalproex Sodium (Depakote Sprinkle) 125 mg PO DAILY@1200 [facility] Last Admin: 06/04/20 11:42 Dose: 125 mg Documented by: GRISELDA Donepezil HCl (Aricept) 10 mg PO DAILY [facility] Last Admin: 06/04/20 09:04 Dose: 10 mg Documented by: GRISELDA Enoxaparin Sodium (Lovenox) 40 mg SUBCUT Q24H [facility] Last Admin: 06/04/20 14:11 Dose: 40 mg Documented by: Admin: 06/03/20 16:25 Dose: 40 mg Documented by: GRISELDA Eye Cleanser (Ocusoft Lid Scrub Plus) 1 pad TP BID [facility] Last Admin: 06/04/20 09:05 Dose: 1 pad Documented by: Admin: 06/03/20 20:15 Dose: 1 pad Documented by: JUNIOR Piperacillin Sod/Tazobactam (Sod 4.5 gm/ Sodium Chloride) 100 mls @ 200 mls/hr IV Q6H [facility] Last Admin: 06/04/20 14:11 Dose: 200 mls/hr Documented by: Admin: 06/04/20 09:01 Dose: 200 mls/hr Documented by: Admin: 06/04/20 02:56 Dose: 200 mls/hr Documented by: Admin: 06/03/20 20:17 Dose: 200 mls/hr Documented by: JUNIOR Vancomycin HCl (Vancomycin 1 Gm/200 Ml In D5w) 200 mls @ 200 mls/hr IV Q12H [facility] Last Admin: 06/04/20 09:50 Dose: 200 mls/hr Documented by: GRISELDA Sodium Chloride (Sodium Chloride 0.45%) 1,000 mls @ 75 mls/hr IV ASDIRECTED [facility] Last Admin: 06/04/20 16:10 Dose: 75 mls/hr Documented by: GRISELDA Loperamide HCl (Imodium) 2 mg PO ASDIRECTED PRN PRN Reason: DIARRHEA Loratadine (Claritin) 10 mg PO DAILY [facility] Last Admin: 06/04/20 09:04 Dose: 10 mg Documented by: GRISELDA Magnesium Hydroxide (Milk Of Magnesia) 30 ml PO DAILY PRN PRN Reason: Constipation Mineral Oil/White Petrolatum (Absorbase Ointment) 0 gm TOP BID [facility] Last Admin: 06/04/20 09:03 Dose: 1 applic Documented by: Admin: 06/03/20 20:14 Dose: 114 gm Documented by: JUNIOR Mineral Oil/White Petrolatum (Hydrophor Oint) 1 gm TOP TID [facility] Last Admin: 06/04/20 14:11 Dose: 1 applic Documented by: Admin: 06/04/20 09:02 Dose: 1 applic Documented by: Admin: 06/03/20 22:56 Dose: 1 applic Documented by: Admin: 06/03/20 16:24 Dose: 1 applic Documented by: GRISELDA Mineral Oil/White Petrolatum (Hydrophor Oint) 0 gm TOP ASDIRECTED PRN PRN Reason: EVERY CHECK Last Admin: 06/03/20 20:15 Dose: 100 gm Documented by: JUNIOR Pantoprazole Sodium (Protonix) 40 mg PO DAILY@0600 [facility] Last Admin: 06/04/20 05:19 Dose: 40 mg Documented by: JUNIOR Sodium Chloride (Saline Flush) 10 ml FLUSH ASDIRECTED PRN PRN Reason: Keep Vein Open Last Admin: 06/03/20 07:45 Dose: 10 ml Documented by: APJUL Vancomycin HCl (Pharmacy To Dose - Vancomycin) 1 dose .XX ASDIRECTED [facility] Labs: Laboratory Tests 06/03/20 06/03/20 06/03/20 Range/Units 07:10 07:10 09:04 WBC 19.5 H (3.2-10.1) x10-3/uL RBC 5.75 (3.90-5.90) x10(6)uL Hgb 17.3 (12.9-17.7) g/dL Hct 54.5 H (38.3-50.1) % MCV 94.8 (80.8-98.7) fL MCH 30.0 (27.0-33.3) pg MCHC 31.7 (28.7-35.3) g/dL RDW 16.0 H (12.4-15.0) % Plt Count 329 (117-477) x10(3)uL MPV 8.4 (6.7-11.0) fL Add Manual Diff Yes Neutrophils % (Manual) 80 (46-82) % Band Neutrophils % 2 (0-6) % Lymphocytes % (Manual) 10 L (13-37) % Monocytes % (Manual) 5 (4-12) % Eosinophils % (Manual) 3 (0-5) % Sodium 140 (135-145) mmol/L Potassium 3.9 (3.5-5.3) mmol/L Chloride 100 (100-110) mmol/L Carbon Dioxide 24 (21-32) mmol/L BUN 22 H (7-18) mg/dL Creatinine 1.0 (0.70-1.30) mg/dL Est Cr Clr Drug Dosing TNP Estimated GFR (MDRD) > 60 (>60) BUN/Creatinine Ratio 22.0 H (9-20) Glucose 135 H (80-116) mg/dL Lactic Acid (0.4-2.0) mmol/L Calcium 9.6 (8.6-10.2) mg/dL Total Bilirubin 0.5 (0.1-1.3) mg/dL AST 19 D (5-25) IU/L ALT 7 L D (12-36) U/L Alkaline Phosphatase 163 H (56-112) IU/L Total Protein 8.8 H (6.0-8.0) g/dL Albumin 3.6 (3.5-5.2) g/dL Globulin 5.2 g/dL Albumin/Globulin Ratio 0.7 Amylase (25-115) U/L Lipase (73-393) U/L Urine Color Yellow (YELLOW) Urine Appearance Clear (CLEAR) Urine pH 5.0 (5.0-6.5) Ur Specific Watson 1.030 H (1.010-1.025) Urine Protein Negative (NEGATIVE) mg/dL Urine Glucose (UA) Normal (NORMAL) mg/dL Urine Ketones Negative (NEGATIVE) mg/dL Urine Occult Blood Large H (NEGATIVE) Urine Nitrite Negative (NEGATIVE) Urine Bilirubin Negative (NEGATIVE) Urine Urobilinogen Normal (NEGATIVE) mg/dL Ur Leukocyte Esterase Negative (NEGATIVE) Urine RBC 10-20 H (0-5) Urine WBC 0-5 (0-5) Ur Squamous Epith Cells Occasional (NS,R,O) Urine Bacteria Few H (NS) SARS-CoV-2 RNA (SONAM) (NEGATIVE) 06/03/20 06/03/20 06/03/20 Range/Units 09:50 10:10 10:10 WBC (3.2-10.1) x10-3/uL RBC (3.90-5.90) x10(6)uL Hgb (12.9-17.7) g/dL Hct (38.3-50.1) % MCV (80.8-98.7) fL MCH (27.0-33.3) pg MCHC (28.7-35.3) g/dL RDW (12.4-15.0) % Plt Count (117-477) x10(3)uL MPV (6.7-11.0) fL Add Manual Diff Neutrophils % (Manual) (46-82) % Band Neutrophils % (0-6) % Lymphocytes % (Manual) (13-37) % Monocytes % (Manual) (4-12) % Eosinophils % (Manual) (0-5) % Sodium (135-145) mmol/L Potassium (3.5-5.3) mmol/L Chloride (100-110) mmol/L Carbon Dioxide (21-32) mmol/L BUN (7-18) mg/dL Creatinine (0.70-1.30) mg/dL Est Cr Clr Drug Dosing Estimated GFR (MDRD) (>60) BUN/Creatinine Ratio (9-20) Glucose (80-116) mg/dL Lactic Acid 3.6 H* (0.4-2.0) mmol/L Calcium (8.6-10.2) mg/dL Total Bilirubin (0.1-1.3) mg/dL AST (5-25) IU/L ALT (12-36) U/L Alkaline Phosphatase (56-112) IU/L Total Protein (6.0-8.0) g/dL Albumin (3.5-5.2) g/dL Globulin g/dL Albumin/Globulin Ratio Amylase 67 (25-115) U/L Lipase (73-393) U/L Urine Color (YELLOW) Urine Appearance (CLEAR) Urine pH (5.0-6.5) Ur Specific Watson (1.010-1.025) Urine Protein (NEGATIVE) mg/dL Urine Glucose (UA) (NORMAL) mg/dL Urine Ketones (NEGATIVE) mg/dL Urine Occult Blood (NEGATIVE) Urine Nitrite (NEGATIVE) Urine Bilirubin (NEGATIVE) Urine Urobilinogen (NEGATIVE) mg/dL Ur Leukocyte Esterase (NEGATIVE) Urine RBC (0-5) Urine WBC (0-5) Ur Squamous Epith Cells (NS,R,O) Urine Bacteria (NS) SARS-CoV-2 RNA (SONAM) Negative (NEGATIVE) 06/03/20 Range/Units 10:10 WBC (3.2-10.1) x10-3/uL RBC (3.90-5.90) x10(6)uL Hgb (12.9-17.7) g/dL Hct (38.3-50.1) % MCV (80.8-98.7) fL MCH (27.0-33.3) pg MCHC (28.7-35.3) g/dL RDW (12.4-15.0) % Plt Count (117-477) x10(3)uL MPV (6.7-11.0) fL Add Manual Diff Neutrophils % (Manual) (46-82) % Band Neutrophils % (0-6) % Lymphocytes % (Manual) (13-37) % Monocytes % (Manual) (4-12) % Eosinophils % (Manual) (0-5) % Sodium (135-145) mmol/L Potassium (3.5-5.3) mmol/L Chloride (100-110) mmol/L Carbon Dioxide (21-32) mmol/L BUN (7-18) mg/dL Creatinine (0.70-1.30) mg/dL Est Cr Clr Drug Dosing Estimated GFR (MDRD) (>60) BUN/Creatinine Ratio (9-20) Glucose (80-116) mg/dL Lactic Acid (0.4-2.0) mmol/L Calcium (8.6-10.2) mg/dL Total Bilirubin (0.1-1.3) mg/dL AST (5-25) IU/L ALT (12-36) U/L Alkaline Phosphatase (56-112) IU/L Total Protein (6.0-8.0) g/dL Albumin (3.5-5.2) g/dL Globulin g/dL Albumin/Globulin Ratio Amylase (25-115) U/L Lipase 103 (73-393) U/L Urine Color (YELLOW) Urine Appearance (CLEAR) Urine pH (5.0-6.5) Ur Specific Watson (1.010-1.025) Urine Protein (NEGATIVE) mg/dL Urine Glucose (UA) (NORMAL) mg/dL Urine Ketones (NEGATIVE) mg/dL Urine Occult Blood (NEGATIVE) Urine Nitrite (NEGATIVE) Urine Bilirubin (NEGATIVE) Urine Urobilinogen (NEGATIVE) mg/dL Ur Leukocyte Esterase (NEGATIVE) Urine RBC (0-5) Urine WBC (0-5) Ur Squamous Epith Cells (NS,R,O) Urine Bacteria (NS) SARS-CoV-2 RNA (SONAM) (NEGATIVE) Meds: Medications Generic Name Dose Route Start Last Admin Trade Name Freq PRN Reason Stop Dose Admin Acetaminophen 650 mg 06/03/20 14:14 06/04/20 00:05 Tylenol PO 650 mg Q4H PRN Administration Pain/Fever Albuterol/Ipratropium 3 ml 06/03/20 21:00 06/04/20 09:05 Duoneb 3.0-0.5 Mg/3 Ml NEB 3 ml BID THOR Administration Albuterol/Ipratropium 3 ml 06/03/20 14:14 06/04/20 00:05 Duoneb 3.0-0.5 Mg/3 Ml NEB 3 ml Q4H PRN Administration CONGESTION/DYSPNEA Bisacodyl 10 mg 06/03/20 14:14 Dulcolax RECTAL Q72H PRN Constipation Divalproex Sodium 125 mg 06/04/20 12:00 06/04/20 11:42 Depakote Sprinkle PO 125 mg DAILY@1200 THOR Administration Donepezil HCl 10 mg 06/04/20 09:00 06/04/20 09:04 Aricept PO 10 mg DAILY THOR Administration Enoxaparin Sodium 40 mg 06/03/20 14:00 06/04/20 14:11 Lovenox SUBCUT 40 mg Q24H THOR Administration Eye Cleanser 1 pad 06/03/20 21:00 06/04/20 09:05 Ocusoft Lid Scrub Plus TP 1 pad BID THOR Administration Piperacillin Sod/Tazobactam 100 mls @ 200 mls/hr 06/03/20 20:00 06/04/20 14:11 Sod 4.5 gm/ Sodium Chloride IV 200 mls/hr Q6H [facility] Administration Vancomycin HCl 200 mls @ 200 mls/hr 06/04/20 09:00 06/04/20 09:50 Vancomycin 1 Gm/200 Ml In D5w IV 200 mls/hr Q12H [facility] Administration Sodium Chloride 1,000 mls @ 75 mls/hr 06/04/20 15:45 06/04/20 16:10 Sodium Chloride 0.45% IV 75 mls/hr ASDIRECTED THOR Administration Loperamide HCl 2 mg 06/03/20 14:23 Imodium PO ASDIRECTED PRN DIARRHEA Loratadine 10 mg 06/04/20 09:00 06/04/20 09:04 Claritin PO 10 mg DAILY THOR Administration Magnesium Hydroxide 30 ml 06/03/20 14:14 Milk Of Magnesia PO DAILY PRN Constipation Mineral Oil/White Petrolatum 0 gm 06/03/20 21:00 06/04/20 09:03 Absorbase Ointment TOP 1 applic BID THOR Administration Mineral Oil/White Petrolatum 1 gm 06/03/20 15:00 06/04/20 14:11 Hydrophor Oint TOP 1 applic TID THOR Administration Mineral Oil/White Petrolatum 0 gm 06/03/20 14:41 06/03/20 20:15 Hydrophor Oint TOP 100 gm ASDIRECTED PRN Administration EVERY CHECK Pantoprazole Sodium 40 mg 06/04/20 06:00 06/04/20 05:19 Protonix PO 40 mg DAILY@0600 [facility] Administration Sodium Chloride 10 ml 06/03/20 06:45 06/03/20 07:45 Saline Flush FLUSH 10 ml ASDIRECTED PRN Administration Keep Vein Open Vancomycin HCl 1 dose 06/04/20 09:00 Pharmacy To Dose - Vancomycin .XX ASDIRECTED [facility] Discontinued Medications Generic Name Dose Route Start Last Admin Trade Name Freq PRN Reason Stop Dose Admin Acetaminophen 1,000 mg 06/03/20 12:52 06/03/20 13:16 Tylenol PO 06/03/20 12:53 1,000 mg ONETIME ONE Administration Sodium Chloride 1,000 mls @ 999 mls/hr 06/03/20 06:45 06/03/20 08:46 Normal Saline IV Infused ASDIRECTED THOR Infusion Piperacillin Sod/Tazobactam 100 mls @ 200 mls/hr 06/03/20 12:45 06/03/20 12:57 Sod 4.5 gm/ Sodium Chloride IV 200 mls/hr Q6H [facility] Administration Sodium Chloride 1,000 mls @ 125 mls/hr 06/03/20 21:45 06/04/20 05:19 Normal Saline IV 125 mls/hr ASDIRECTED [facility] Administration Iopamidol 100 ml 06/03/20 10:44 06/03/20 10:55 Isovue-370 (76%) IV 06/03/20 10:45 100 ml . DIRECTED ONE Administration Ondansetron HCl 4 mg 06/03/20 08:10 06/03/20 08:26 Zofran IVPUSH 06/03/20 08:11 4 mg ONETIME ONE Administration Sodium Bicarbonate 50 meq 06/03/20 21:33 06/03/20 22:49 Sodium Bicarbonate 8.4% IVPUSH 06/03/20 21:34 50 meq ONETIME ONE Administration Departure - Departure Time of Disposition: 10:00 Disposition: Admitted As Inpatient 66 Condition: Good Clinical Impression: Gastroenteritis Sepsis Qualifiers: Sepsis type: sepsis due to unspecified organism Aspiration pneumonia Qualifiers: Laterality: bilateral Lung location: lower lobe of lung - Discharge Information Sepsis Event Note (ED) - Evaluation Sepsis Screening Result: Sepsis Risk
[2020-06-05] MEDS: Piperacillin/Tazobactam 4.5 GM in Sodium Chloride 0.9% 100 ML IV SCH ×4 (02:43→20:14)
[2020-06-05] MEDS: Pantoprazole 40 MG Tab.CR PO SCH (06:49)
[2020-06-05] MEDS: Sodium Chloride 0.45% 1,000 ML IV SCH (07:53)
[2020-06-05] MEDS: MINERAL OIL TOP SCH ×2 (09:07→20:25)
[2020-06-05] MEDS: PETROLATUM TOP SCH ×2 (09:07→20:25)
[2020-06-05] MEDS: Albuterol/Ipratropium 3.0-0.5 MG/3 ML Neb Soln NEB SCH ×2 (09:08→20:24)
[2020-06-05] MEDS: Loratadine 10 MG Tab PO SCH (09:08)
[2020-06-05] MEDS: Mineral Oil/Petrolatum,Hydrophilic Ointment 100 GM Jar TOP SCH ×3 (09:08→20:25)
[2020-06-05] MEDS: Donepezil 10 MG Tab PO SCH (09:08)
[2020-06-05] MEDS: Eyelid Cleanser Pads, 30 per Box TP SCH ×2 (09:08→20:27)
[2020-06-05] MEDS: Vancomycin/Dextrose 5%-Water 200 ML IV SCH ×2 (09:09→22:35)
--- NOTE | 2020-06-05 09:46 | PCM.PN ---
- General Info Date of Service: 06/05/20 Subjective Update: Sebastien still has loose stools, and still hypoxic. Every attempt to feeding results in aspiration and choking. He has no fever. Functional Status: Denies: Tolerating Diet - Review of Systems HEENT: Reports: No Symptoms Pulmonary: Reports: Cough Cardiovascular: Reports: No Symptoms Gastrointestinal: Reports: Difficulty Swallowing Musculoskeletal: Reports: No Symptoms Neurological: Reports: No Symptoms Psychiatric: Reports: No Symptoms - Patient Data Vitals - Most Recent: Last Vital Signs Temp 97.9 F 06/05/20 04:00 Pulse 61 06/05/20 04:00 Resp 20 06/05/20 04:00 BP 97/57 L 06/05/20 04:00 Pulse Ox 95 06/05/20 04:00 Weight - Most Recent: 75.432 kg I&O - Last 24 Hours: Intake & Output 06/04/20 06/05/20 06/05/20 22:59 06:59 14:59 Intake Total 300 963 Balance 300 963 Lab Results Last 24 Hours: Laboratory Results - last 24 hr 06/05/20 06/05/20 Range/Units 06:55 06:55 WBC 9.9 (3.2-10.1) x10-3/uL RBC 3.82 L (3.90-5.90) x10(6)uL Hgb 12.0 L (12.9-17.7) g/dL Hct 36.1 L (38.3-50.1) % MCV 94.4 (80.8-98.7) fL MCH 31.5 (27.0-33.3) pg MCHC 33.4 (28.7-35.3) g/dL RDW 15.9 H (12.4-15.0) % Plt Count 234 (117-477) x10(3)uL MPV 8.3 (6.7-11.0) fL Neut % (Auto) 72.7 H (40.3-71.8) % Lymph % (Auto) 13.5 L (15.8-45.3) % [place] % (Auto) 11.8 (5.5-15.2) % Eos % (Auto) 0.8 (0.1-6.8) % Baso % (Auto) 1.2 (0.3-3.8) % Neut # (Auto) 7.2 H (1.7-6.9) x10-3/uL Lymph # (Auto) 1.3 (0.5-4.5) x10-3/uL [place] # (Auto) 1.2 (0.0-1.2) x10-3/uL Eos # (Auto) 0.1 (0.0-0.6) x10-3/uL Baso # (Auto) 0.1 (0.0-0.3) x10-3/uL Sodium 145 (135-145) mmol/L Potassium 3.4 L (3.5-5.3) mmol/L Chloride 107 (100-110) mmol/L Carbon Dioxide 25 (21-32) mmol/L BUN 13 (7-18) mg/dL Creatinine 0.9 (0.70-1.30) mg/dL Est Cr Clr Drug Dosing 70.22 mL/min Estimated GFR (MDRD) > 60 (>60) BUN/Creatinine Ratio 14.4 (9-20) Glucose 90 (80-116) mg/dL Calcium 7.9 L (8.6-10.2) mg/dL Willie Results Last 24 Hours: Microbiology 06/03/20 10:10 Aerobic Blood Culture - Preliminary Blood - Venous Gram Positive Cocci Anaerobic Blood Culture - Final 06/03/20 10:20 Aerobic Blood Culture - Preliminary Blood - Venous - Lab Draw NO GROWTH AFTER 1 DAY Anaerobic Blood Culture - Final Med Orders - Current: Current Medications Acetaminophen (Tylenol) 650 mg PO Q4H PRN PRN Reason: Pain/Fever Last Admin: 06/04/20 00:05 Dose: 650 mg Documented by: Albuterol/Ipratropium (Duoneb 3.0-0.5 Mg/3 Ml) 3 ml NEB BID THOR Last Admin: 06/05/20 09:08 Dose: 3 ml Documented by: Albuterol/Ipratropium (Duoneb 3.0-0.5 Mg/3 Ml) 3 ml NEB Q4H PRN PRN Reason: CONGESTION/DYSPNEA Last Admin: 06/04/20 00:05 Dose: 3 ml Documented by: Bisacodyl (Dulcolax) 10 mg RECTAL Q72H PRN PRN Reason: Constipation Divalproex Sodium (Depakote Sprinkle) 125 mg PO DAILY@1200 [facility] Last Admin: 06/04/20 11:42 Dose: 125 mg Documented by: Donepezil HCl (Aricept) 10 mg PO DAILY [facility] Last Admin: 06/05/20 09:08 Dose: 10 mg Documented by: Enoxaparin Sodium (Lovenox) 40 mg SUBCUT Q24H [facility] Last Admin: 06/04/20 14:11 Dose: 40 mg Documented by: Eye Cleanser (Ocusoft Lid Scrub Plus) 1 pad TP BID [facility] Last Admin: 06/05/20 09:08 Dose: 1 pad Documented by: Piperacillin Sod/Tazobactam (Sod 4.5 gm/ Sodium Chloride) 100 mls @ 200 mls/hr IV Q6H [facility] Last Admin: 06/05/20 07:53 Dose: 200 mls/hr Documented by: Vancomycin HCl (Vancomycin 1 Gm/200 Ml In D5w) 200 mls @ 200 mls/hr IV Q12H [facility] Last Admin: 06/05/20 09:09 Dose: 200 mls/hr Documented by: Sodium Chloride (Sodium Chloride 0.45%) 1,000 mls @ 75 mls/hr IV ASDIRECTED [facility] Last Admin: 06/05/20 07:53 Dose: 75 mls/hr Documented by: Levofloxacin/Dextrose 500 mg/ (Premix) 100 mls @ 100 mls/hr IV Q24H [facility] Loperamide HCl (Imodium) 2 mg PO ASDIRECTED PRN PRN Reason: DIARRHEA Loratadine (Claritin) 10 mg PO DAILY [facility] Last Admin: 06/05/20 09:08 Dose: 10 mg Documented by: Magnesium Hydroxide (Milk Of Magnesia) 30 ml PO DAILY PRN PRN Reason: Constipation Mineral Oil/White Petrolatum (Absorbase Ointment) 0 gm TOP BID [facility] Last Admin: 06/05/20 09:07 Dose: 1 applic Documented by: Mineral Oil/White Petrolatum (Hydrophor Oint) 1 gm TOP TID [facility] Last Admin: 06/05/20 09:08 Dose: 1 applic Documented by: Mineral Oil/White Petrolatum (Hydrophor Oint) 0 gm TOP ASDIRECTED PRN PRN Reason: EVERY CHECK Last Admin: 06/03/20 20:15 Dose: 100 gm Documented by: Pantoprazole Sodium (Protonix) 40 mg PO DAILY@0600 [facility] Last Admin: 06/05/20 06:49 Dose: 40 mg Documented by: Sodium Chloride (Saline Flush) 10 ml FLUSH ASDIRECTED PRN PRN Reason: Keep Vein Open Last Admin: 06/03/20 07:45 Dose: 10 ml Documented by: Vancomycin HCl (Pharmacy To Dose - Vancomycin) 1 dose .XX ASDIRECTED [facility] Discontinued Medications Acetaminophen (Tylenol) 1,000 mg PO ONETIME ONE Stop: 06/03/20 12:53 Last Admin: 06/03/20 13:16 Dose: 1,000 mg Documented by: Sodium Chloride (Normal Saline) 1,000 mls @ 999 mls/hr IV ASDIRECTED [facility] Last Infusion: 06/03/20 08:46 Dose: Infused Documented by: Piperacillin Sod/Tazobactam (Sod 4.5 gm/ Sodium Chloride) 100 mls @ 200 mls/hr IV Q6H [facility] Last Admin: 06/03/20 12:57 Dose: 200 mls/hr Documented by: Sodium Chloride (Normal Saline) 1,000 mls @ 125 mls/hr IV ASDIRECTED [facility] Last Admin: 06/04/20 05:19 Dose: 125 mls/hr Documented by: Iopamidol (Isovue-370 (76%)) 100 ml IV . DIRECTED ONE Stop: 06/03/20 10:45 Last Admin: 06/03/20 10:55 Dose: 100 ml Documented by: Ondansetron HCl (Zofran) 4 mg IVPUSH ONETIME ONE Stop: 06/03/20 08:11 Last Admin: 06/03/20 08:26 Dose: 4 mg Documented by: Sodium Bicarbonate (Sodium Bicarbonate 8.4%) 50 meq IVPUSH ONETIME ONE Stop: 06/03/20 21:34 Last Admin: 06/03/20 22:49 Dose: 50 meq Documented by: - Exam Quality Assessment: Supplemental Oxygen General: Alert, Lethargic Neck: Supple Lungs: Crackles, Rales Cardiovascular: Regular Rate GI/Abdominal Exam: Soft, Non-Tender Extremities: Normal Inspection Sepsis Event Note - Evaluation Sepsis Screening Result: No Definite Risk - Focused Exam Vital Signs: Vital Signs Temp Pulse Resp BP Pulse Ox 06/05/20 04:00 97.9 F 61 20 97/57 L 95 06/05/20 00:00 18 - Problem List & Annotations (1) Aspiration pneumonia SNOMED Code(s): 872999718 Code(s): J69.0 - PNEUMONITIS DUE TO INHALATION OF FOOD AND VOMIT Status: Acute Current Visit: Yes Qualifiers: Laterality: bilateral Lung location: lower lobe of lung (2) Sepsis SNOMED Code(s): 61711672 Code(s): A41.9 - SEPSIS, UNSPECIFIED ORGANISM Status: Acute Current Visit: Yes Qualifiers: Sepsis type: sepsis due to unspecified organism (3) Bacteremia SNOMED Code(s): 4733238 Code(s): R78.81 - BACTEREMIA Status: Acute Current Visit: Yes (4) Nausea & vomiting SNOMED Code(s): 73675110 Code(s): R11.2 - NAUSEA WITH VOMITING, UNSPECIFIED Status: Acute Current Visit: Yes Qualifiers: Vomiting type: unspecified (5) Down's syndrome SNOMED Code(s): 24621373 Code(s): Q90.9 - DOWN SYNDROME, UNSPECIFIED Status: Chronic Current Visit: No (6) Palliative care status SNOMED Code(s): 775637823 Code(s): Z51.5 - ENCOUNTER FOR PALLIATIVE CARE Status: Acute Current Visit: Yes (7) Diarrhea SNOMED Code(s): 25287246 Code(s): R19.7 - DIARRHEA, UNSPECIFIED Status: Acute Current Visit: Yes - Problem List Review Problem List Initiated/Reviewed/Updated: Yes - My Orders Last 24 Hours: My Active Orders 06/04/20 09:00 Pharmacy to Dose - Vancomycin 1 dose .XX ASDIRECTED Vancomycin/Dextrose 5%-Water [Vancomycin 1 GM/200 ML in D5W] 200 ml IV Q12H 06/04/20 15:45 Sodium Chloride 0.45% 1,000 ml IV ASDIRECTED 06/05/20 09:37 Chest wo Cont [CT] Routine Head wo Cont [CT] Routine 06/05/20 09:45 Levofloxacin/Dextrose 5%-Water [Levaquin in D5W 500 MG/100 ML] 500 mg Premix Bag 1 bag IV Q24H 06/05/20 20:30 VANCOMYCIN TROUGH [CHEM] Routine 06/06/20 05:11 BASIC METABOLIC PANEL,BMP [CHEM] AM C-REACTIVE PROTEIN [CHEM] AM CBC WITH AUTO DIFF [HEME] AM PRO B-TYPE NATRIUR PEPT,BNPPRO [CHEM] Routine - Plan Plan:: I will add Levaquin as we wait for ID and sensitivity of the organism.C diff is negative. Replace Fluid,.s Obtail CT scan head ? Stroke and chest Ct.
[2020-06-05] MEDS: Levofloxacin/Dextrose 5%-Water 500 MG in Premix Bag 1 BAG IV SCH (11:21)
[2020-06-05] MEDS: Divalproex Sodium Delayed-Release 125 MG Cap.Sprink PO SCH (12:57)
[2020-06-05] MEDS: Enoxaparin 40 MG/0.4 ML Syringe SUBCUT SCH (14:30)
[2020-06-06] MEDS: Piperacillin/Tazobactam 4.5 GM in Sodium Chloride 0.9% 100 ML IV SCH ×4 (02:14→20:09)
[2020-06-06] MEDS: Sodium Chloride 0.45% 1,000 ML IV SCH ×2 (02:18→20:07)
[2020-06-06] MEDS: Pantoprazole 40 MG Tab.CR PO SCH (05:18)
[2020-06-06] MEDS: MINERAL OIL TOP SCH ×2 (07:59→21:15)
[2020-06-06] MEDS: PETROLATUM TOP SCH ×2 (07:59→21:15)
[2020-06-06] MEDS: Loratadine 10 MG Tab PO SCH (07:59)
[2020-06-06] MEDS: Donepezil 10 MG Tab PO SCH (07:59)
[2020-06-06] MEDS: Mineral Oil/Petrolatum,Hydrophilic Ointment 100 GM Jar TOP SCH ×3 (07:59→21:15)
[2020-06-06] MEDS: Albuterol/Ipratropium 3.0-0.5 MG/3 ML Neb Soln NEB SCH ×2 (07:59→21:16)
[2020-06-06] MEDS: Eyelid Cleanser Pads, 30 per Box TP SCH ×2 (08:00→21:16)
--- NOTE | 2020-06-06 08:58 | PCM.PN ---
- General Info Date of Service: 06/06/20 Subjective Update: Doing better. Eating better,no fever. Off O2. Functional Status: Reports: Pain Controlled - Review of Systems General: Reports: No Symptoms Cardiovascular: Reports: No Symptoms Gastrointestinal: Reports: Diarrhea Genitourinary: Reports: No Symptoms - Patient Data Vitals - Most Recent: Last Vital Signs Temp 97.5 F 06/06/20 07:35 Pulse 49 L 06/06/20 07:35 Resp 20 06/06/20 07:35 BP 98/52 L 06/06/20 07:35 Pulse Ox 96 06/06/20 08:00 Weight - Most Recent: 75.432 kg I&O - Last 24 Hours: Intake & Output 06/05/20 06/06/20 06/06/20 22:59 06:59 14:59 Intake Total 1381 813 Balance 1381 813 Lab Results Last 24 Hours: Laboratory Results - last 24 hr 06/05/20 06/06/20 06/06/20 Range/Units 20:45 06:40 06:40 WBC 9.3 (3.2-10.1) x10-3/uL RBC 3.98 (3.90-5.90) x10(6)uL Hgb 12.3 L (12.9-17.7) g/dL Hct 37.6 L (38.3-50.1) % MCV 94.4 (80.8-98.7) fL MCH 30.9 (27.0-33.3) pg MCHC 32.8 (28.7-35.3) g/dL RDW 15.1 H (12.4-15.0) % Plt Count 228 (117-477) x10(3)uL MPV 8.6 (6.7-11.0) fL Neut % (Auto) 69.8 (40.3-71.8) % Lymph % (Auto) 15.0 L (15.8-45.3) % [place] % (Auto) 11.4 (5.5-15.2) % Eos % (Auto) 2.6 (0.1-6.8) % Baso % (Auto) 1.2 (0.3-3.8) % Neut # (Auto) 6.5 (1.7-6.9) x10-3/uL Lymph # (Auto) 1.4 (0.5-4.5) x10-3/uL [place] # (Auto) 1.1 (0.0-1.2) x10-3/uL Eos # (Auto) 0.2 (0.0-0.6) x10-3/uL Baso # (Auto) 0.1 (0.0-0.3) x10-3/uL Sodium 143 (135-145) mmol/L Potassium 3.2 L (3.5-5.3) mmol/L Chloride 107 (100-110) mmol/L Carbon Dioxide 29 (21-32) mmol/L BUN 8 (7-18) mg/dL Creatinine 0.8 (0.70-1.30) mg/dL Est Cr Clr Drug Dosing 78.99 mL/min Estimated GFR (MDRD) > 60 (>60) BUN/Creatinine Ratio 10.0 (9-20) Glucose 98 (80-116) mg/dL Calcium 8.2 L (8.6-10.2) mg/dL C-Reactive Protein (0.5-0.9) mg/dL NT-Pro-B Natriuret Pep (<=125) pg/mL Vancomycin Trough 14.1 H (<0.8) ug/mL 06/06/20 Range/Units 06:40 WBC (3.2-10.1) x10-3/uL RBC (3.90-5.90) x10(6)uL Hgb (12.9-17.7) g/dL Hct (38.3-50.1) % MCV (80.8-98.7) fL MCH (27.0-33.3) pg MCHC (28.7-35.3) g/dL RDW (12.4-15.0) % Plt Count (117-477) x10(3)uL MPV (6.7-11.0) fL Neut % (Auto) (40.3-71.8) % Lymph % (Auto) (15.8-45.3) % [place] % (Auto) (5.5-15.2) % Eos % (Auto) (0.1-6.8) % Baso % (Auto) (0.3-3.8) % Neut # (Auto) (1.7-6.9) x10-3/uL Lymph # (Auto) (0.5-4.5) x10-3/uL [place] # (Auto) (0.0-1.2) x10-3/uL Eos # (Auto) (0.0-0.6) x10-3/uL Baso # (Auto) (0.0-0.3) x10-3/uL Sodium (135-145) mmol/L Potassium (3.5-5.3) mmol/L Chloride (100-110) mmol/L Carbon Dioxide (21-32) mmol/L BUN (7-18) mg/dL Creatinine (0.70-1.30) mg/dL Est Cr Clr Drug Dosing mL/min Estimated GFR (MDRD) (>60) BUN/Creatinine Ratio (9-20) Glucose (80-116) mg/dL Calcium (8.6-10.2) mg/dL C-Reactive Protein 13.3 H* (0.5-0.9) mg/dL NT-Pro-B Natriuret Pep 1078 H* (<=125) pg/mL Vancomycin Trough (<0.8) ug/mL Willie Results Last 24 Hours: Microbiology 06/03/20 10:20 Aerobic Blood Culture - Preliminary Blood - Venous - Lab Draw NO GROWTH AFTER 2 DAYS Anaerobic Blood Culture - Final 06/03/20 10:10 Aerobic Blood Culture - Preliminary Blood - Venous Gram Positive Cocci Anaerobic Blood Culture - Final Med Orders - Current: Current Medications Acetaminophen (Tylenol) 650 mg PO Q4H PRN PRN Reason: Pain/Fever Last Admin: 06/04/20 00:05 Dose: 650 mg Documented by: Albuterol/Ipratropium (Duoneb 3.0-0.5 Mg/3 Ml) 3 ml NEB BID THOR Last Admin: 06/06/20 07:59 Dose: 3 ml Documented by: Albuterol/Ipratropium (Duoneb 3.0-0.5 Mg/3 Ml) 3 ml NEB Q4H PRN PRN Reason: CONGESTION/DYSPNEA Last Admin: 06/04/20 00:05 Dose: 3 ml Documented by: Bisacodyl (Dulcolax) 10 mg RECTAL Q72H PRN PRN Reason: Constipation Divalproex Sodium (Depakote Sprinkle) 125 mg PO DAILY@1200 [facility] Last Admin: 06/05/20 12:57 Dose: 125 mg Documented by: Donepezil HCl (Aricept) 10 mg PO DAILY [facility] Last Admin: 06/06/20 07:59 Dose: 10 mg Documented by: Enoxaparin Sodium (Lovenox) 40 mg SUBCUT Q24H [facility] Last Admin: 06/05/20 14:30 Dose: 40 mg Documented by: Eye Cleanser (Ocusoft Lid Scrub Plus) 1 pad TP BID [facility] Last Admin: 06/06/20 08:00 Dose: 1 pad Documented by: Piperacillin Sod/Tazobactam (Sod 4.5 gm/ Sodium Chloride) 100 mls @ 200 mls/hr IV Q6H [facility] Last Admin: 06/06/20 07:49 Dose: 200 mls/hr Documented by: Sodium Chloride (Sodium Chloride 0.45%) 1,000 mls @ 75 mls/hr IV ASDIRECTED [facility] Last Admin: 06/06/20 02:18 Dose: 75 mls/hr Documented by: Levofloxacin/Dextrose 500 mg/ (Premix) 100 mls @ 100 mls/hr IV Q24H [facility] Last Admin: 06/05/20 11:21 Dose: 100 mls/hr Documented by: Vancomycin HCl 1.25 gm/ Sodium (Chloride) 250 mls @ 166.667 mls/hr IV Q12H [facility] Last Admin: 06/05/20 22:32 Dose: 166.667 mls/hr Documented by: Loperamide HCl (Imodium) 2 mg PO ASDIRECTED PRN PRN Reason: DIARRHEA Loratadine (Claritin) 10 mg PO DAILY [facility] Last Admin: 06/06/20 07:59 Dose: 10 mg Documented by: Magnesium Hydroxide (Milk Of Magnesia) 30 ml PO DAILY PRN PRN Reason: Constipation Mineral Oil/White Petrolatum (Absorbase Ointment) 0 gm TOP BID [facility] Last Admin: 06/06/20 07:59 Dose: 1 applic Documented by: Mineral Oil/White Petrolatum (Hydrophor Oint) 1 gm TOP TID [facility] Last Admin: 06/06/20 07:59 Dose: 1 applic Documented by: Mineral Oil/White Petrolatum (Hydrophor Oint) 0 gm TOP ASDIRECTED PRN PRN Reason: EVERY CHECK Last Admin: 06/03/20 20:15 Dose: 100 gm Documented by: Pantoprazole Sodium (Protonix) 40 mg PO DAILY@0600 [facility] Last Admin: 06/06/20 05:18 Dose: 40 mg Documented by: Sodium Chloride (Saline Flush) 10 ml FLUSH ASDIRECTED PRN PRN Reason: Keep Vein Open Last Admin: 06/03/20 07:45 Dose: 10 ml Documented by: Vancomycin HCl (Pharmacy To Dose - Vancomycin) 1 dose .XX [facility] Discontinued Medications Acetaminophen (Tylenol) 1,000 mg PO ONETIME ONE Stop: 06/03/20 12:53 Last Admin: 06/03/20 13:16 Dose: 1,000 mg Documented by: Sodium Chloride (Normal Saline) 1,000 mls @ 999 [facility] Infusion: 06/03/20 08:46 Dose: Infused Documented by: Piperacillin Sod/Tazobactam (Sod 4.5 gm/ Sodium Chloride) 100 mls @ 200 mls/hr IV Q6H [facility] Last Admin: 06/03/20 12:57 Dose: 200 mls/hr Documented by: Sodium Chloride (Normal Saline) 1,000 mls @ 125 mls/hr IV ASDIRECTED [facility] Last Admin: 06/04/20 05:19 Dose: 125 mls/hr Documented by: Vancomycin HCl (Vancomycin 1 Gm/200 Ml In D5w) 200 mls @ 200 mls/hr IV Q12H [facility] Last Admin: 06/05/20 22:35 Dose: Not Given Documented by: Iopamidol (Isovue-370 (76%)) 100 ml IV . DIRECTED ONE Stop: 06/03/20 10:45 Last Admin: 06/03/20 10:55 Dose: 100 ml Documented by: Ondansetron HCl (Zofran) 4 mg IVPUSH ONETIME ONE Stop: 06/03/20 08:11 Last Admin: 06/03/20 08:26 Dose: 4 mg Documented by: Sodium Bicarbonate (Sodium Bicarbonate 8.4%) 50 meq IVPUSH ONETIME ONE Stop: 06/03/20 21:34 Last Admin: 06/03/20 22:49 Dose: 50 meq Documented by: - Exam General: Lethargic HEENT: Pupils Equal Lungs: Crackles, Rales Cardiovascular: Regular Rate Sepsis Event Note - Evaluation Sepsis Screening Result: No Definite Risk - Focused Exam Vital Signs: Vital Signs Temp Temp Pulse Resp BP BP Pulse Ox 06/06/20 08:00 06/06/20 07:35 97.5 F 49 L 20 98/52 L 97 06/06/20 05:00 98.5 F 62 18 106/67 98 06/06/20 01:00 98.8 F 60 20 96/52 L 99 Pulse Ox 06/06/20 08:00 96 06/06/20 07:35 06/06/20 05:00 06/06/20 01:00 - Problem List & Annotations (1) Aspiration pneumonia SNOMED Code(s): 538126572 Code(s): J69.0 - PNEUMONITIS DUE TO INHALATION OF FOOD AND VOMIT Status: Acute Current Visit: Yes Qualifiers: Laterality: bilateral Lung location: lower lobe of lung (2) Sepsis SNOMED Code(s): 86642439 Code(s): A41.9 - SEPSIS, UNSPECIFIED ORGANISM Status: Acute Current Visit: Yes Qualifiers: Sepsis type: sepsis due to unspecified organism (3) Bacteremia SNOMED Code(s): 4909634 Code(s): R78.81 - BACTEREMIA Status: Acute Current Visit: Yes (4) Nausea & vomiting SNOMED Code(s): 16348802 Code(s): R11.2 - NAUSEA WITH VOMITING, UNSPECIFIED Status: Acute Current Visit: Yes Qualifiers: Vomiting type: unspecified (5) Down's syndrome SNOMED Code(s): 02038918 Code(s): Q90.9 - DOWN SYNDROME, UNSPECIFIED Status: Chronic Current Visit: No (6) Palliative care status SNOMED Code(s): 609267752 Code(s): Z51.5 - ENCOUNTER FOR PALLIATIVE CARE Status: Acute Current Visit: Yes (7) Diarrhea SNOMED Code(s): 76421834 Code(s): R19.7 - DIARRHEA, UNSPECIFIED Status: Acute Current Visit: Yes - Problem List Review Problem List Initiated/Reviewed/Updated: Yes - My Orders Last 24 Hours: My Active Orders 06/05/20 09:37 Chest wo Cont [CT] Routine Head wo Cont [CT] Routine 06/05/20 10:00 Levofloxacin/Dextrose 5%-Water [Levaquin in D5W 500 MG/100 ML] 500 mg Premix Bag 1 bag IV Q24H 06/05/20 22:00 Vancomycin 1.25 gm Sodium Chloride 0.9% [Normal Saline] 250 ml IV Q12H 06/07/20 05:11 BASIC METABOLIC PANEL,BMP [CHEM] AM CBC WITH AUTO DIFF [HEME] AM - Plan Plan:: Continue current tipple abx therapy. CT showed remote CVA.Swallow study appropriate.
[2020-06-06] MEDS: Levofloxacin/Dextrose 5%-Water 500 MG in Premix Bag 1 BAG IV SCH (09:00)
[2020-06-06] MEDS: Divalproex Sodium Delayed-Release 125 MG Cap.Sprink PO SCH (11:42)
[2020-06-06] MEDS: Enoxaparin 40 MG/0.4 ML Syringe SUBCUT SCH (14:44)
[2020-06-06] MEDS: Loperamide 2 MG Cap PO PRN ×2 (21:20→21:21)
[2020-06-07] MEDS: Piperacillin/Tazobactam 4.5 GM in Sodium Chloride 0.9% 100 ML IV SCH ×2 (01:49→09:30)
[2020-06-07] MEDS: Pantoprazole 40 MG Tab.CR PO SCH (05:05)
--- NOTE | 2020-06-07 08:45 | PCM.PN ---
- General Info Date of Service: 06/07/20 Subjective Update: Doing better. Eating better,no fever. Off O2. - Review of Systems General: Denies: Fever HEENT: Reports: No Symptoms Pulmonary: Reports: Cough, Wheezing Gastrointestinal: Reports: Difficulty Swallowing Genitourinary: Reports: No Symptoms - Patient Data Vitals - Most Recent: Last Vital Signs Temp 99.4 F 06/07/20 04:00 Pulse 56 L 06/07/20 04:00 Resp 20 06/07/20 04:00 BP 99/54 L 06/07/20 04:00 Pulse Ox 97 06/07/20 04:00 Weight - Most Recent: 75.432 kg I&O - Last 24 Hours: Intake & Output 06/06/20 06/07/20 06/07/20 22:59 06:59 14:59 Intake Total 1565 660 Balance 1565 660 Willie Results Last 24 Hours: Microbiology 06/03/20 10:10 Aerobic Blood Culture - Final Blood - Venous Streptococcus Milleri Group Anaerobic Blood Culture - Final 06/03/20 10:20 Aerobic Blood Culture - Preliminary Blood - Venous - Lab Draw NO GROWTH AFTER 3 DAYS Anaerobic Blood Culture - Final Med Orders - Current: Current Medications Acetaminophen (Tylenol) 650 mg PO Q4H PRN PRN Reason: Pain/Fever Last Admin: 06/04/20 00:05 Dose: 650 mg Documented by: Albuterol/Ipratropium (Duoneb 3.0-0.5 Mg/3 Ml) 3 ml NEB BID [facility] Last Admin: 06/06/20 21:16 Dose: 3 ml Documented by: Albuterol/Ipratropium (Duoneb 3.0-0.5 Mg/3 Ml) 3 ml NEB Q4H PRN PRN Reason: CONGESTION/DYSPNEA Last Admin: 06/04/20 00:05 Dose: 3 ml Documented by: Bisacodyl (Dulcolax) 10 mg RECTAL Q72H PRN PRN Reason: Constipation Divalproex Sodium (Depakote Sprinkle) 125 mg PO DAILY@1200 [facility] Last Admin: 06/06/20 11:42 Dose: 125 mg Documented by: Donepezil HCl (Aricept) 10 mg PO DAILY [facility] Last Admin: 06/06/20 07:59 Dose: 10 mg Documented by: Enoxaparin Sodium (Lovenox) 40 mg SUBCUT Q24H [facility] Last Admin: 06/06/20 14:44 Dose: 40 mg Documented by: Eye Cleanser (Ocusoft Lid Scrub Plus) 1 pad TP BID [facility] Last Admin: 06/06/20 21:16 Dose: 1 pad Documented by: Piperacillin Sod/Tazobactam (Sod 4.5 gm/ Sodium Chloride) 100 mls @ 200 mls/hr IV Q6H [facility] Last Admin: 06/07/20 01:49 Dose: 200 mls/hr Documented by: Levofloxacin/Dextrose 500 mg/ (Premix) 100 mls @ 100 mls/hr IV Q24H [facility] Last Admin: 06/06/20 09:00 Dose: 100 mls/hr Documented by: Vancomycin HCl 1.25 gm/ Sodium (Chloride) 250 mls @ 166.667 mls/hr IV Q12H [facility] Last Admin: 06/06/20 21:36 Dose: 166.667 mls/hr Documented by: Loperamide HCl (Imodium) 2 mg PO ASDIRECTED PRN PRN Reason: DIARRHEA Last Admin: 06/06/20 21:21 Dose: 2 mg Documented by: Loratadine (Claritin) 10 mg PO DAILY [facility] Last Admin: 06/06/20 07:59 Dose: 10 mg Documented by: Magnesium Hydroxide (Milk Of Magnesia) 30 ml PO DAILY PRN PRN Reason: Constipation Mineral Oil/White Petrolatum (Absorbase Ointment) 0 gm TOP BID [facility] Last Admin: 06/06/20 21:15 Dose: 1 applic Documented by: Mineral Oil/White Petrolatum (Hydrophor Oint) 1 gm TOP TID [facility] Last Admin: 06/06/20 21:15 Dose: 1 applic Documented by: Mineral Oil/White Petrolatum (Hydrophor Oint) 0 gm TOP ASDIRECTED PRN PRN Reason: EVERY CHECK Last Admin: 06/03/20 20:15 Dose: 100 gm Documented by: Pantoprazole Sodium (Protonix) 40 mg PO DAILY@0600 [facility] Last Admin: 06/07/20 05:05 Dose: 40 mg Documented by: Sodium Chloride (Saline Flush) 10 ml FLUSH ASDIRECTED PRN PRN Reason: Keep Vein Open Last Admin: 06/03/20 07:45 Dose: 10 ml Documented by: Vancomycin HCl (Pharmacy To Dose - Vancomycin) 1 dose .XX ASDIRECTED [facility] Discontinued Medications Acetaminophen (Tylenol) 1,000 mg PO ONETIME ONE Stop: 06/03/20 12:53 Last Admin: 06/03/20 13:16 Dose: 1,000 mg Documented by: Sodium Chloride (Normal Saline) 1,000 mls @ 999 mls/hr IV ASDIRECTED [facility] Last Infusion: 06/03/20 08:46 Dose: Infused Documented by: Piperacillin Sod/Tazobactam (Sod 4.5 gm/ Sodium Chloride) 100 mls @ 200 mls/hr IV Q6H [facility] Last Admin: 06/03/20 12:57 Dose: 200 mls/hr Documented by: Sodium Chloride (Normal Saline) 1,000 mls @ 125 mls/hr IV ASDIRECTED [facility] Last Admin: 06/04/20 05:19 Dose: 125 mls/hr Documented by: Vancomycin HCl (Vancomycin 1 Gm/200 Ml In D5w) 200 mls @ 200 mls/hr IV Q12H [facility] Last Admin: 06/05/20 22:35 Dose: Not Given Documented by: Sodium Chloride (Sodium Chloride 0.45%) 1,000 mls @ 75 mls/hr IV ASDIRECTED [facility] Last Admin: 06/06/20 20:07 Dose: 75 mls/hr Documented by: Iopamidol (Isovue-370 (76%)) 100 ml IV . DIRECTED ONE Stop: 06/03/20 10:45 Last Admin: 06/03/20 10:55 Dose: 100 ml Documented by: Ondansetron HCl (Zofran) 4 mg IVPUSH ONETIME ONE Stop: 06/03/20 08:11 Last Admin: 06/03/20 08:26 Dose: 4 mg Documented by: Sodium Bicarbonate (Sodium Bicarbonate 8.4%) 50 meq IVPUSH ONETIME ONE Stop: 06/03/20 21:34 Last Admin: 06/03/20 22:49 Dose: 50 meq Documented by: - Exam Quality Assessment: Supplemental Oxygen General: Alert, Lethargic HEENT: Pupils Equal Neck: Supple Lungs: Crackles, Rales Cardiovascular: Regular Rate Sepsis Event Note - Evaluation Sepsis Screening Result: No Definite Risk - Focused Exam Vital Signs: Vital Signs Temp Pulse Resp BP Pulse Ox 06/07/20 04:00 99.4 F 56 L 20 99/54 L 97 06/07/20 00:00 20 06/06/20 21:30 99.2 F 53 L 20 110/71 99 - Problem List & Annotations (1) Aspiration pneumonia SNOMED Code(s): 956561304 Code(s): J69.0 - PNEUMONITIS DUE TO INHALATION OF FOOD AND VOMIT Status: Acute Current Visit: Yes Qualifiers: Laterality: bilateral Lung location: lower lobe of lung (2) Sepsis SNOMED Code(s): 13846272 Code(s): A41.9 - SEPSIS, UNSPECIFIED ORGANISM Status: Acute Current Visit: Yes Qualifiers: Sepsis type: sepsis due to unspecified organism (3) Bacteremia SNOMED Code(s): 5716138 Code(s): R78.81 - BACTEREMIA Status: Acute Current Visit: Yes (4) Nausea & vomiting SNOMED Code(s): 53199652 Code(s): R11.2 - NAUSEA WITH VOMITING, UNSPECIFIED Status: Acute Current Visit: Yes Qualifiers: Vomiting type: unspecified (5) Down's syndrome SNOMED Code(s): 00829347 Code(s): Q90.9 - DOWN SYNDROME, UNSPECIFIED Status: Chronic Current Visit: No (6) Palliative care status SNOMED Code(s): 604730188 Code(s): Z51.5 - ENCOUNTER FOR PALLIATIVE CARE Status: Acute Current Visit: Yes (7) Diarrhea SNOMED Code(s): 82443107 Code(s): R19.7 - DIARRHEA, UNSPECIFIED Status: Acute Current Visit: Yes Qualifiers: Diarrhea type: unspecified type Qualified Code(s): R19.7 - Diarrhea, unspecified (8) Hypokalemia SNOMED Code(s): 22999018 Code(s): E87.6 - HYPOKALEMIA Status: Acute Current Visit: Yes - Problem List Review Problem List Initiated/Reviewed/Updated: Yes - My Orders Last 24 Hours: My Active Orders 06/07/20 05:11 BASIC METABOLIC PANEL,BMP [CHEM] AM CBC WITH AUTO DIFF [HEME] AM 06/07/20 08:19 Consult to Speech Language Pathology [COMMUNICATION PROFESSOR Evaluation and Treatment] [CONS] Routine Swallowing Function w Video [CR] Routine 06/08/20 05:11 BASIC METABOLIC PANEL,BMP [CHEM] AM - Plan Plan:: Continue current tipple abx therapy. CT showed remote CVA.Swallow study appropriate.Ordered.DC IVF
[2020-06-07] MEDS: Donepezil 10 MG Tab PO SCH (09:27)
[2020-06-07] MEDS: MINERAL OIL TOP SCH ×2 (09:27→20:39)
[2020-06-07] MEDS: PETROLATUM TOP SCH ×2 (09:27→20:39)
[2020-06-07] MEDS: Albuterol/Ipratropium 3.0-0.5 MG/3 ML Neb Soln NEB SCH ×2 (09:27→20:30)
[2020-06-07] MEDS: Mineral Oil/Petrolatum,Hydrophilic Ointment 100 GM Jar TOP SCH ×3 (09:28→20:38)
[2020-06-07] MEDS: Loratadine 10 MG Tab PO SCH (09:28)
[2020-06-07] MEDS: Eyelid Cleanser Pads, 30 per Box TP SCH ×2 (09:28→20:39)
[2020-06-07] MEDS: Levofloxacin/Dextrose 5%-Water 500 MG in Premix Bag 1 BAG IV SCH (10:12)
[2020-06-07] MEDS: Divalproex Sodium Delayed-Release 125 MG Cap.Sprink PO SCH (12:02)
[2020-06-07] MEDS: Piperacillin/Tazobactam 3.375 GM in Sodium Chloride 0.9% 50 ML IV SCH ×2 (13:38→20:31)
[2020-06-07] MEDS: Enoxaparin 40 MG/0.4 ML Syringe SUBCUT SCH (13:38)
[2020-06-07] MEDS: Sodium Chloride 0.9% 10 ML Syringe FLUSH PRN (20:37)
[2020-06-08] MEDS: Piperacillin/Tazobactam 3.375 GM in Sodium Chloride 0.9% 50 ML IV SCH ×2 (01:47→08:35)
[2020-06-08] MEDS: Sodium Chloride 0.9% 10 ML Syringe FLUSH PRN (02:03)
[2020-06-08] MEDS: Pantoprazole 40 MG Tab.CR PO SCH (05:08)
[2020-06-08] MEDS: Mineral Oil/Petrolatum,Hydrophilic Ointment 100 GM Jar TOP SCH ×3 (08:20→20:31)
[2020-06-08] MEDS: Donepezil 10 MG Tab PO SCH (08:21)
[2020-06-08] MEDS: Loratadine 10 MG Tab PO SCH (08:21)
[2020-06-08] MEDS: MINERAL OIL TOP SCH ×2 (08:22→20:29)
[2020-06-08] MEDS: PETROLATUM TOP SCH ×2 (08:22→20:29)
[2020-06-08] MEDS: Albuterol/Ipratropium 3.0-0.5 MG/3 ML Neb Soln NEB SCH ×2 (08:22→20:31)
[2020-06-08] MEDS: Eyelid Cleanser Pads, 30 per Box TP SCH ×2 (08:23→20:32)
--- NOTE | 2020-06-08 09:04 | PCM.PN ---
- General Info Date of Service: 06/08/20 Subjective Update: Doing better. Eating better,no fever. Off O2.Some cough with feeding Functional Status: Denies: Tolerating Diet - Review of Systems HEENT: Reports: No Symptoms Pulmonary: Reports: Cough Cardiovascular: Reports: No Symptoms Gastrointestinal: Reports: No Symptoms Genitourinary: Reports: No Symptoms - Patient Data Vitals - Most Recent: Last Vital Signs Temp 98.2 F 06/08/20 07:39 Pulse 58 L 06/08/20 07:39 Resp 16 06/08/20 07:39 BP 110/59 L 06/08/20 07:39 Pulse Ox 95 06/08/20 07:39 Weight - Most Recent: 75.432 kg I&O - Last 24 Hours: Intake & Output 06/07/20 06/08/20 06/08/20 22:59 06:59 14:59 Intake Total 40 50 Balance 40 50 Lab Results Last 24 Hours: Laboratory Results - last 24 hr 06/07/20 06/08/20 06/08/20 Range/Units 11:45 08:10 08:10 Sodium 145 (135-145) mmol/L Potassium 3.0 L (3.5-5.3) mmol/L Chloride 108 (100-110) mmol/L Carbon Dioxide 26 (21-32) mmol/L BUN 18 D (7-18) mg/dL Creatinine 3.0 H* (0.70-1.30) mg/dL Est Cr Clr Drug Dosing 21.06 mL/min Estimated GFR (MDRD) 22 L (>60) BUN/Creatinine Ratio 6.0 L (9-20) Glucose 115 (80-116) mg/dL Calcium 8.2 L (8.6-10.2) mg/dL Vancomycin Trough 38.1 H 33.2 H (<0.8) ug/mL Willie Results Last 24 Hours: Microbiology 06/03/20 10:20 Aerobic Blood Culture - Preliminary Blood - Venous - Lab Draw NO GROWTH AFTER 4 DAYS Anaerobic Blood Culture - Final 06/03/20 10:10 Aerobic Blood Culture - Final Blood - Venous Streptococcus Milleri Group Anaerobic Blood Culture - Final Med Orders - Current: Current Medications Acetaminophen (Tylenol) 650 mg PO Q4H PRN PRN Reason: Pain/Fever Last Admin: 06/04/20 00:05 Dose: 650 mg Documented by: Albuterol/Ipratropium (Duoneb 3.0-0.5 Mg/3 Ml) 3 ml NEB BID [facility] Last Admin: 06/08/20 08:22 Dose: 3 ml Documented by: Albuterol/Ipratropium (Duoneb 3.0-0.5 Mg/3 Ml) 3 ml NEB Q4H PRN PRN Reason: CONGESTION/DYSPNEA Last Admin: 06/04/20 00:05 Dose: 3 ml Documented by: Amoxicillin/Clavulanate Potassium (Augmentin 500 Mg\125 Mg) 1 tab PO BID [facility] Bisacodyl (Dulcolax) 10 mg RECTAL Q72H PRN PRN Reason: Constipation Clindamycin HCl (Cleocin) 450 mg PO TID [facility] Divalproex Sodium (Depakote Sprinkle) 125 mg PO DAILY@1200 [facility] Last Admin: 06/07/20 12:02 Dose: 125 mg Documented by: Donepezil HCl (Aricept) 10 mg PO DAILY [facility] Last Admin: 06/08/20 08:21 Dose: 10 mg Documented by: Enoxaparin Sodium (Lovenox) 40 mg SUBCUT Q24H [facility] Last Admin: 06/07/20 13:38 Dose: 40 mg Documented by: Eye Cleanser (Ocusoft Lid Scrub Plus) 1 pad TP BID [facility] Last Admin: 06/08/20 08:23 Dose: 1 pad Documented by: Sodium Chloride (Normal Saline) 1,000 mls @ 250 mls/hr IV ASDIRECTED [facility] Loperamide HCl (Imodium) 2 mg PO ASDIRECTED PRN PRN Reason: DIARRHEA Last Admin: 06/06/20 21:21 Dose: 2 mg Documented by: Loratadine (Claritin) 10 mg PO DAILY [facility] Last Admin: 06/08/20 08:21 Dose: 10 mg Documented by: Magnesium Hydroxide (Milk Of Magnesia) 30 ml PO DAILY PRN PRN Reason: Constipation Mineral Oil/White Petrolatum (Absorbase Ointment) 0 gm TOP BID [facility] Last Admin: 06/08/20 08:22 Dose: 1 applic Documented by: Mineral Oil/White Petrolatum (Hydrophor Oint) 1 gm TOP TID [facility] Last Admin: 06/08/20 08:20 Dose: 1 applic Documented by: Mineral Oil/White Petrolatum (Hydrophor Oint) 0 gm TOP ASDIRECTED PRN PRN Reason: EVERY CHECK Last Admin: 06/03/20 20:15 Dose: 100 gm Documented by: Pantoprazole Sodium (Protonix) 40 mg PO DAILY@0600 [facility] Last Admin: 06/08/20 05:08 Dose: 40 mg Documented by: Sodium Chloride (Saline Flush) 10 ml FLUSH ASDIRECTED PRN PRN Reason: Keep Vein Open Last Admin: 06/08/20 02:03 Dose: 10 ml Documented by: Discontinued Medications Acetaminophen (Tylenol) 1,000 mg PO ONETIME ONE Stop: 06/03/20 12:53 Last Admin: 06/03/20 13:16 Dose: 1,000 mg Documented by: Sodium Chloride (Normal Saline) 1,000 mls @ 999 mls/hr IV ASDIRECTED [facility] Last Infusion: 06/03/20 08:46 Dose: Infused Documented by: Piperacillin Sod/Tazobactam (Sod 4.5 gm/ Sodium Chloride) 100 mls @ 200 mls/hr IV Q6H [facility] Last Admin: 06/03/20 12:57 Dose: 200 mls/hr Documented by: Piperacillin Sod/Tazobactam (Sod 4.5 gm/ Sodium Chloride) 100 mls @ 200 mls/hr IV Q6H [facility] Last Admin: 06/07/20 09:30 Dose: 200 mls/hr Documented by: Sodium Chloride (Normal Saline) 1,000 mls @ 125 mls/hr IV ASDIRECTED [facility] Last Admin: 06/04/20 05:19 Dose: 125 mls/hr Documented by: Vancomycin HCl (Vancomycin 1 Gm/200 Ml In D5w) 200 mls @ 200 mls/hr IV Q12H [facility] Last Admin: 06/05/20 22:35 Dose: Not Given Documented by: Sodium Chloride (Sodium Chloride 0.45%) 1,000 mls @ 75 mls/hr IV ASDIRECTED [facility] Last Admin: 06/06/20 20:07 Dose: 75 mls/hr Documented by: Levofloxacin/Dextrose 500 mg/ (Premix) 100 mls @ 100 mls/hr IV Q24H [facility] Last Admin: 06/07/20 10:12 Dose: 100 mls/hr Documented by: Vancomycin HCl 1.25 gm/ Sodium (Chloride) 250 mls @ 166.667 mls/hr IV Q12H [facility] Last Admin: 06/06/20 21:36 Dose: 166.667 mls/hr Documented by: Piperacillin Sod/Tazobactam (Sod 3.375 gm/ Sodium Chloride) 50 mls @ 100 mls/hr IV Q6H [facility] Last Admin: 06/08/20 08:35 Dose: 100 mls/hr Documented by: Iopamidol (Isovue-370 (76%)) 100 ml IV . DIRECTED ONE Stop: 06/03/20 10:45 Last Admin: 06/03/20 10:55 Dose: 100 ml Documented by: Ondansetron HCl (Zofran) 4 mg IVPUSH ONETIME ONE Stop: 06/03/20 08:11 Last Admin: 06/03/20 08:26 Dose: 4 mg Documented by: Sodium Bicarbonate (Sodium Bicarbonate 8.4%) 50 meq IVPUSH ONETIME ONE Stop: 06/03/20 21:34 Last Admin: 06/03/20 22:49 Dose: 50 meq Documented by: Vancomycin HCl (Pharmacy To Dose - Vancomycin) 1 dose .XX ASDIRECTED [facility] - Exam General: Alert. No: Oriented HEENT: Pupils Equal Neck: Supple Lungs: Clear to Auscultation Cardiovascular: Regular Rate Sepsis Event Note - Evaluation Sepsis Screening Result: No Definite Risk - Focused Exam Vital Signs: Vital Signs Temp Temp Pulse Resp BP Pulse Ox 06/08/20 07:39 98.2 F 58 L 16 110/59 L 95 06/08/20 04:00 99.2 F 60 18 112/59 L 96 06/08/20 00:00 18 - Problem List & Annotations (1) Aspiration pneumonia SNOMED Code(s): 693844488 Code(s): J69.0 - PNEUMONITIS DUE TO INHALATION OF FOOD AND VOMIT Status: Acute Current Visit: Yes Qualifiers: Laterality: bilateral Lung location: lower lobe of lung (2) Sepsis SNOMED Code(s): 97110334 Code(s): A41.9 - SEPSIS, UNSPECIFIED ORGANISM Status: Acute Current Visit: Yes Qualifiers: Sepsis type: sepsis due to unspecified organism (3) Bacteremia SNOMED Code(s): 7133660 Code(s): R78.81 - BACTEREMIA Status: Acute Current Visit: Yes (4) Nausea & vomiting SNOMED Code(s): 05274136 Code(s): R11.2 - NAUSEA WITH VOMITING, UNSPECIFIED Status: Acute Current Visit: Yes Qualifiers: Vomiting type: unspecified (5) Down's syndrome SNOMED Code(s): 78518919 Code(s): Q90.9 - DOWN SYNDROME, UNSPECIFIED Status: Chronic Current Visit: No (6) Palliative care status SNOMED Code(s): 232281260 Code(s): Z51.5 - ENCOUNTER FOR PALLIATIVE CARE Status: Acute Current Visit: Yes (7) Diarrhea SNOMED Code(s): 79623661 Code(s): R19.7 - DIARRHEA, UNSPECIFIED Status: Acute Current Visit: Yes Qualifiers: Diarrhea type: unspecified type Qualified Code(s): R19.7 - Diarrhea, unspecified (8) Hypokalemia SNOMED Code(s): 34638378 Code(s): E87.6 - HYPOKALEMIA Status: Acute Current Visit: Yes - Problem List Review Problem List Initiated/Reviewed/Updated: Yes - My Orders Last 24 Hours: My Active Orders 06/07/20 08:19 Consult to Speech Language Pathology [MILITARY EXCHANGE WIRELESS MANAGER Evaluation and Treatment] [CONS] Routine 06/08/20 08:45 Sodium Chloride 0.9% [Normal Saline] 1,000 ml IV ASDIRECTED 06/08/20 09:00 clindamycin HCL [Cleocin] 450 mg PO TID 06/08/20 12:00 Amoxicillin/Clavulanate K [Augmentin 500 MG\125 MG] 1 tab PO BID 06/09/20 05:11 BASIC METABOLIC PANEL,BMP [CHEM] AM - Plan Plan:: His creatinine is up to 3.0. Will DC IV abx,start oral. Replace IVF. I had a discussion with the mother. She would like to cancel speech consult and get him on comfort measures back at [facility] [place] [facility]. We will plan this for tomorrow
[2020-06-08] MEDS: Clindamycin HCl 150 MG Cap PO SCH ×3 (09:10→20:30)
[2020-06-08] MEDS: Sodium Chloride 0.9% 1,000 ML IV SCH ×2 (09:15→13:31)
[2020-06-08] MEDS: Loperamide 2 MG Cap PO PRN (09:41)
[2020-06-08] MEDS: Amoxicillin/Clavulanate K 500-125 MG Tab PO SCH ×2 (11:07→20:29)
[2020-06-08] MEDS: Divalproex Sodium Delayed-Release 125 MG Cap.Sprink PO SCH (11:07)
[2020-06-08] MEDS: Enoxaparin 40 MG/0.4 ML Syringe SUBCUT SCH (13:30)
[2020-06-09] MEDS: Pantoprazole 40 MG Tab.CR PO SCH (05:14)
[2020-06-09] MEDS: Loperamide 2 MG Cap PO PRN (05:21)
[2020-06-09] MEDS: Donepezil 10 MG Tab PO SCH (08:05)
[2020-06-09] MEDS: Loratadine 10 MG Tab PO SCH (08:05)
[2020-06-09] MEDS: Amoxicillin/Clavulanate K 500-125 MG Tab PO SCH (08:05)
[2020-06-09] MEDS: Clindamycin HCl 150 MG Cap PO SCH (08:06)
[2020-06-09] MEDS: Eyelid Cleanser Pads, 30 per Box TP SCH (08:07)
[2020-06-09] MEDS: Mineral Oil/Petrolatum,Hydrophilic Ointment 100 GM Jar TOP SCH (08:08)
[2020-06-09] MEDS: Albuterol/Ipratropium 3.0-0.5 MG/3 ML Neb Soln NEB SCH (08:09)
[2020-06-09] MEDS: PETROLATUM TOP SCH (08:09)
[2020-06-09] MEDS: MINERAL OIL TOP SCH (08:09)
[2020-06-09 08:35] VITALS: BP 111/74; PULSE 74
--- NOTE | 2020-06-09 08:52 | DISCH ---
DISCHARGE DATE: 06/09/2020 REASON FOR ADMISSION: 1. Aspiration pneumonia. 2. Sepsis. 3. Nausea and vomiting. 4. Diarrhea. 5. Down syndrome. 6. Palliative care status. CONSULTATIONS: None. DISCHARGE DIAGNOSES: 1. Sepsis. 2. Aspiration pneumonia. 3. Dysphagia. 4. Down syndrome. 5. Acute kidney injury. 6. Hypokalemia. BRIEF HISTORY: This is a 49-year-old male with Down syndrome, who was admitted with vomiting, nausea, feeling poorly, and having aspirated. He was also found to have a fever and chest x-ray findings to suggest pneumonia. His blood cultures grew Staphylococcus milleri group. He did well on Zosyn and vancomycin. Swallow study was discussed, but canceled on the basis of the family deciding that they would like Sebastien to be treated conservatively. His creatinine jumped up to 3.0, perhaps due to acute tubular necrosis. Potassium was down to 2.8 at discharge. I chose clindamycin and Augmentin as discharge oral medications, will go home on pureed diet, and hospice will be consulted upon admission to the senior living. I spent more than 35 minutes in the discharge of the patient. /[id number] KANDI/IVY
== END 2020-06-09 11:20 | DRG 871 ==
LOC: FB.ED 06:17 → FB.MS 12:47
PROVIDERS: ADMIT Emergency Medicine; ATTEND Family Medicine
DX: A41.9 Sepsis, unspecified organism (principal); A41.1 Sepsis due to other specified staphylococcus; J69.0 Pneumonitis due to inhalation of food and vomit; N17.0 Acute kidney failure with tubular necrosis; Z51.5 Encounter for palliative care; H54.7 Unspecified visual loss; J30.9 Allergic rhinitis, unspecified; Z20.828 Contact with and (suspected) exposure to other viral communicable diseases; Z66 Do not resuscitate; K21.9 Gastro-esophageal reflux disease without esophagitis; M10.9 Gout, unspecified; J30.2 Other seasonal allergic rhinitis; F41.9 Anxiety disorder, unspecified; E66.9 Obesity, unspecified; R32 Unspecified urinary incontinence; E86.0 Dehydration; K52.9 Noninfective gastroenteritis and colitis, unspecified; E87.6 Hypokalemia; Q90.9 Down syndrome, unspecified; Z88.2 Allergy status to sulfonamides; Z91.09 Other allergy status, other than to drugs and biological substances; Z88.1 Allergy status to other antibiotic agents; Z79.899 Other long term (current) drug therapy; Z90.49 Acquired absence of other specified parts of digestive tract
CPT/HCPCS: 36415; 71045; 74178; 80053; 81001; 82150; 83605; 83690; 85025; 87040 ×2; 87077; 87230; 87804 ×2; 96374; 99285; J2405; J7030; Q9967; U0002; 70450; 71250; 80048; 80202; 83880; 86140; 94640; 94760; 99231; 99232; 99239; A9270; A9270-GY; J1650; J1956; J2543; J3370; J3490; J7050; J7620-GY

== ENCOUNTER 2021-08-23 13:52 | Inpatient (IN) | payer MEDICARE, OTHER ==
[2021-08-23] MEDS ORDERED: Sodium Chloride 0.9% 1,000 ML IV ONE (14:04)
[2021-08-23] MEDS ORDERED: Sodium Chloride 0.9% 10 ML Syringe FLUSH PRN (14:04)
[2021-08-23] MEDS: Sodium Chloride 0.9% 1,000 ML IV SCH (15:23)
[2021-08-23] MEDS: Piperacillin/Tazobactam 4.5 GM in Sodium Chloride 0.9% 100 ML IV SCH ×2 (15:23→21:43)
[2021-08-23 15:48] LABS: CORONAVIRUS COVID-19 NAA NEGATIVE (NEGATIVE)
[2021-08-23] MEDS ORDERED: Iopamidol 755 Mg/ML 100 ML Bottle IV ONE (16:34)
[2021-08-23] MEDS: VANCOmycin 1 GM/200 ML 1 GM in Premix Bag 1 BAG IV SCH (16:57)
[2021-08-23] MEDS ORDERED: Acetaminophen 500 MG Tab PO STA (17:16)
[2021-08-23] MEDS ORDERED: Acetaminophen 500 MG Tab ONE (20:06)
[2021-08-23] MEDS ORDERED: Bisacodyl 10 MG Supp RECTAL PRN (20:55)
[2021-08-23] MEDS ORDERED: Acetaminophen 325 MG Tab PO PRN (20:55)
[2021-08-23] MEDS ORDERED: guaiFENesin 100 MG/5 ML Soln 5 ML UD Cup PO PRN (20:55)
[2021-08-23] MEDS ORDERED: Carboxymethylcellulose Sodium 0.5% Ophth Soln 15 ML Bottle EYEBOTH PRN (20:55)
[2021-08-23] MEDS ORDERED: Magnesium Hydroxide 400 MG/5 ML Susp 30 ML Cup PO PRN (20:55)
[2021-08-23] MEDS ORDERED: Loperamide 2 MG Cap PO PRN (20:55)
[2021-08-23] MEDS ORDERED: Cocoa Butter/Phenylephrine Rectal Supp RECTAL PRN (20:55)
[2021-08-23] MEDS ORDERED: [UNRECOGNIZED DRUG - OTHER] EYEBOTH SCH (21:00)
[2021-08-23] MEDS ORDERED: Ondansetron 4 MG/2 ML SDV IVPUSH SCH (21:00)
[2021-08-23] MEDS: Enoxaparin 40 MG/0.4 ML Syringe SUBCUT SCH (21:38)
[2021-08-23] MEDS: Albuterol/Ipratropium 3.0-0.5 MG/3 ML Neb Soln INH SCH (21:38)
[2021-08-23] MEDS: guaiFENesin 200 MG Tab PO SCH (21:38)
[2021-08-23] MEDS ORDERED: Ondansetron 4 MG/2 ML SDV IVPUSH PRN (23:29)
[2021-08-24] MEDS: Piperacillin/Tazobactam 4.5 GM in Sodium Chloride 0.9% 100 ML IV SCH ×4 (03:10→21:00)
[2021-08-24] MEDS: Albuterol/Ipratropium 3.0-0.5 MG/3 ML Neb Soln INH SCH ×4 (03:11→20:40)
[2021-08-24] MEDS: Sodium Chloride 0.9% 1,000 ML IV SCH ×2 (03:44→15:45)
[2021-08-24] MEDS ORDERED: Vancomycin 250 MG in Sodium Chloride 0.9% 100 ML IV ONE (04:46)
[2021-08-24] MEDS ORDERED: Sodium Chloride 0.9% 100 ML ONE (05:17)
[2021-08-24] MEDS: VANCOmycin 1 GM/200 ML 1 GM in Premix Bag 1 BAG IV SCH (05:24)
[2021-08-24] MEDS: Pantoprazole 40 MG Tab.CR PO SCH (08:36)
[2021-08-24] MEDS: guaiFENesin 200 MG Tab PO SCH ×4 (08:39→20:43)
[2021-08-24] MEDS: Acetaminophen 500 MG Tab PO SCH ×2 (08:39→18:33)
[2021-08-24] MEDS: Loratadine 10 MG Tab PO SCH (08:39)
[2021-08-24] MEDS ORDERED: OMEPRAZOLE MAGNESIUM 20 MG PO SCH (09:00)
[2021-08-24] MEDS ORDERED: Aluminum Hydroxide/Magnesium Hydroxide Susp 30 ML Cup PO PRN (09:25)
[2021-08-24] MEDS ORDERED: Carboxymethylcellulose Sodium 0.5% Ophth Soln 15 ML Bottle EYEBOTH PRN (09:26)
[2021-08-24] MEDS: Enoxaparin 40 MG/0.4 ML Syringe SUBCUT SCH (20:44)
[2021-08-24] MEDS ORDERED: VANCOmycin 1.25 GM/250 ML 1.25 GM in Premix Bag 1 BAG IV SCH (22:00)
[2021-08-25] MEDS: Albuterol/Ipratropium 3.0-0.5 MG/3 ML Neb Soln INH SCH ×4 (02:51→20:10)
[2021-08-25] MEDS: Piperacillin/Tazobactam 4.5 GM in Sodium Chloride 0.9% 100 ML IV SCH ×4 (03:19→20:30)
[2021-08-25] MEDS: Sodium Chloride 0.9% 1,000 ML IV SCH ×2 (03:20→14:49)
[2021-08-25] MEDS: Pantoprazole 40 MG Tab.CR PO SCH (06:30)
[2021-08-25] MEDS: Acetaminophen 500 MG Tab PO SCH ×2 (08:15→17:39)
[2021-08-25] MEDS: Loratadine 10 MG Tab PO SCH (08:16)
[2021-08-25] MEDS: guaiFENesin 200 MG Tab PO SCH ×4 (08:17→20:10)
[2021-08-25] MEDS: Furosemide 20 MG Tab PO SCH (09:33)
[2021-08-25] MEDS: Enoxaparin 40 MG/0.4 ML Syringe SUBCUT SCH (20:11)
[2021-08-26] MEDS: Sodium Chloride 0.9% 1,000 ML IV SCH (01:45)
[2021-08-26] MEDS: Piperacillin/Tazobactam 4.5 GM in Sodium Chloride 0.9% 100 ML IV SCH ×2 (02:45→09:02)
[2021-08-26] MEDS: Albuterol/Ipratropium 3.0-0.5 MG/3 ML Neb Soln INH SCH ×2 (02:47→08:03)
[2021-08-26] MEDS: Pantoprazole 40 MG Tab.CR PO SCH (06:36)
[2021-08-26 06:52] VITALS: BP 114/74; PULSE 60
[2021-08-26] MEDS: Acetaminophen 500 MG Tab PO SCH (08:02)
[2021-08-26] MEDS: Loratadine 10 MG Tab PO SCH (08:03)
[2021-08-26] MEDS: guaiFENesin 200 MG Tab PO SCH (08:03)
[2021-08-26] MEDS: Furosemide 20 MG Tab PO SCH (08:03)
[2021-08-26] MEDS ORDERED: Potassium Chloride 20 MEQ Tab.ER PO ONE (08:42)
[2021-08-26] MEDS ORDERED: Amoxicillin/Clavulanate K 875-125 MG Tab PO SCH (21:00)
== END 2021-08-26 11:10 | DRG 178 ==
LOC: FB.ED 13:52 → FB.MS 20:55
PROVIDERS: ADMIT Emergency Medicine; ATTEND Family Medicine
DX: J69.0 Pneumonitis due to inhalation of food and vomit (principal); J18.9 Pneumonia, unspecified organism; E87.6 Hypokalemia; E86.0 Dehydration; N17.9 Acute kidney failure, unspecified; Q90.9 Down syndrome, unspecified; J30.9 Allergic rhinitis, unspecified; H54.7 Unspecified visual loss; Z66 Do not resuscitate; I50.9 Heart failure, unspecified; K21.9 Gastro-esophageal reflux disease without esophagitis; F03.90 Unspecified dementia, unspecified severity, without behavioral disturbance, psychotic disturbance, mood disturbance, and anxiety; E83.51 Hypocalcemia; M10.9 Gout, unspecified; Z51.5 Encounter for palliative care; M72.2 Plantar fascial fibromatosis; G30.9 Alzheimer's disease, unspecified; Z91.09 Other allergy status, other than to drugs and biological substances; F02.80 Dementia in other diseases classified elsewhere, unspecified severity, without behavioral disturbance, psychotic disturbance, mood disturbance, and anxiety; Z90.49 Acquired absence of other specified parts of digestive tract; E66.9 Obesity, unspecified; Z88.2 Allergy status to sulfonamides; Z88.1 Allergy status to other antibiotic agents; Z79.899 Other long term (current) drug therapy; Z20.822 Contact with and (suspected) exposure to COVID-19
CPT/HCPCS: 0240U; 36415; 71045; 74177; 80048; 80053; 81001; 83605; 83880; 84484; 85025; 86140; 87040; 94640; 96365; 96375; 99284; 99285-25; A9270-GY; J1650; J2543; J3370; J7030; J7620-GY; Q9967; U0002